=== PATIENT | male | born 1955 | race American Indian/Alaskan Native ===

== ENCOUNTER 2018-09-14 15:28 | Emergency (ER) | payer MEDICARE, OTHER ==
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
[2018-09-14 18:20] VITALS: BP 103/75
== END 2018-09-14 17:52 | disposition home or self-care (01) ==
LOC: ED 15:28
DX: S83.91XA Sprain of unspecified site of right knee, initial encounter (principal); S63.502A Unspecified sprain of left wrist, initial encounter; S09.90XA Unspecified injury of head, initial encounter; I11.0 Hypertensive heart disease with heart failure; I50.9 Heart failure, unspecified; I25.2 Old myocardial infarction; Z95.0 Presence of cardiac pacemaker; Z87.891 Personal history of nicotine dependence; V89.2XXA Person injured in unspecified motor-vehicle accident, traffic, initial encounter; Y93.89 Activity, other specified; Y92.488 Other paved roadways as the place of occurrence of the external cause; Y99.8 Other external cause status
CPT/HCPCS: 70450; 99284

== ENCOUNTER 2018-10-24 16:54 | Inpatient (IN) | payer MEDICARE ==
--- NOTE | 2018-10-24 17:34 | Emergency Department Report ---
Blank Doc - Documentation Documentation: Patient here for SOB , swelling to uper and lower exttremities and worst to legs. no chest pain. reports swelling to abdomen Swelling with SOB x [address] Allison . Gained 49 lbs in 5 weeks. reports strong color urine and constipation. Sent to Hospital by PCP and Gum Cook because new dieretics is not working which is torsemide 20 mg BID Lisinopril. coreg, Dieuretic, potassium, metformin, Pravastatin, ASA H/O SC stent CHF HTN AICD EF 20% DM 2 Lungs, increase wob EKG with paced rhythm Generalized swelling including abdomen Piiting edema to legs RT>LT, swelling lt hand and forearm CHF exac Anasarca- generalized swelling Gum Cook: Dr Landon Foster at [facility], 2 l n/c , Xray
--- NOTE | 2018-10-24 18:13 | XRay Report ---
CHEST 2 VIEWS INDICATION / CLINICAL INFORMATION: Shortness of breath. COMPARISON: None available. FINDINGS: SUPPORT DEVICES: Biventricular cardiac pacemaker/ICD in place with leads appearing in appropriate pos ition. HEART / MEDIASTINUM: Mild cardiomegaly. LUNGS / PLEURA: There is patchy parenchymal opacification in the left lower lobe. The right lung appe ars clear. There is no significant pleural effusion. No pneumothorax. ADDITIONAL FINDINGS: No significant additional findings. IMPRESSION: 1. Patchy left lower lobe parenchymal opacification which could reflect atelectasis or developing inf ectious or inflammatory process. Signer Name: Oliverio Marin MD Signed: 10/24/2018 6:08 PM Workstation Name: [id number]
[2018-10-24 18:40] LABS: INR 1.36 (0.87-1.13)
[2018-10-24 18:41] LABS: Hematocrit 38.9 % (35.5-45.6); Hemoglobin 12.5 gm/dl (11.8-15.2); Mean Corpuscular HGB Conc 32 % (32-34); Mean Corpuscular Hemoglobin 28 pg (28-32); Mean Corpuscular Volume 86 fl (84-94); Partial Thromboplastin Time 31.9 Sec. (24.2-36.6); Platelet Count 131 K/mm3 (140-440)
[2018-10-24 18:52] LABS: Red Cell Distribution Width 21.8 % (13.2-15.2)
[2018-10-24 18:55] LABS: Alanine Aminotransferase 8 units/L (7-56); Albumin 3.1 g/dL (3.9-5); BUN/Creatinine Ratio 16; Blood Urea Nitrogen 21 mg/dL (9-20); Calcium 8.6 mg/dL (8.4-10.2); Hemolysis Index 1; Lipase 29 units/L (13-60)
[2018-10-24] MEDS ORDERED: LASIX IV ONE (19:17)
--- NOTE | 2018-10-24 19:26 | Emergency Department Report ---
HPI - General Chief Complaint: Dyspnea/Respdistress Time Seen by Provider: 10/24/18 17:22 - HPI HPI: Room 1 The patient is a 63-year-old male presenting with a chief complaint of bilateral lower extremity edema. The patient states for about 5 weeks he has had worsening bilateral lower extremity edema. The patient saw his napper tender 10/10/2018 was placed on torsemide to take in addition to his Lasix. Patient states he has been compliant with all medication with swelling has worsened. Patient states he's had shortness of breath for approximately one month and difficulty sleeping secondary to the shortness of breath. Patient also states he's had swelling of the left upper extremity. Patient admits to a cough for approximately one month but states it is been nonproductive. Patient denies history of fever. The patient states he had fleeting chest pain intermittent for past 2-3 days. Location: [See above] Duration: [See above] Quality: [See above] Severity: [See above] Modifying factors: [see above] Context: [see above] Mode of transportation: [not driving] ED Past Medical Hx - Past Medical History Previous Medical History?: Yes Hx Hypertension: Yes Hx Heart Attack/AMI: Yes Hx Congestive Heart Failure: Yes - Surgical History Past Surgical History?: Yes Hx Pacemaker: Yes (AICD) - Family History Family history: no significant - Social History Smoking Status: Former Smoker (none 7 years) Substance Use Type: None (denies illicit drug use) - Medications Home Medications: Home Medications Medication Instructions Recorded Confirmed Last Taken Type methOCARBAMOL [Robaxin TAB] 500 mg PO Q8HR PRN #10 tablet 09/14/18 Unknown Rx ED Review of Systems ROS: Stated complaint: EDMA/KIESHA Other details as noted in HPI Constitutional: denies: fever Eyes: denies: eye pain ENT: denies: throat pain Respiratory: cough, shortness of breath Cardiovascular: chest pain Endocrine: no symptoms reported Gastrointestinal: denies: abdominal pain Genitourinary: other (scrotal swelling) Musculoskeletal: denies: back pain Neurological: denies: headache Physical Exam - Physical Exam Vital Signs: Vital Signs 10/24/18 10/24/18 10/24/18 17:21 18:45 19:00 Temperature 97.8 F Pulse Rate 87 95 H 96 H Respiratory 24 17 20 Rate Blood Pressure 101/62 101/71 99/66 O2 Sat by Pulse 94 100 100 Oximetry 10/24/18 19:15 Temperature Pulse Rate Respiratory 24 Rate Blood Pressure O2 Sat by Pulse 100 Oximetry Physical Exam: GENERAL: The patient is well-developed well-nourished male sitting on stretcher not appearing to be in acute distress. [] HEENT: Normocephalic. Atraumatic. Extraocular motions are intact. Patient has moist mucous membranes. NECK: Supple. Trachea midline CHEST/LUNGS: Bibasilar crackles. There is no respiratory distress noted. HEART/CARDIOVASCULAR: Regular. There is no tachycardia. There is no gallop rub or murmur. ABDOMEN: Abdomen is soft, nontender. Patient has normal bowel sounds. There is no abdominal distention. SKIN: There is no rash. There is 3+ bilateral lower extremity pitting edema. There is no diaphoresis. NEURO: The patient is awake, alert, and oriented. The patient is cooperative. The patient has normal speech MUSCULOSKELETAL: There is no evidence of acute injury. ED Course Vital Signs 10/24/18 10/24/18 10/24/18 17:21 18:45 19:00 Temperature 97.8 F Pulse Rate 87 95 H 96 H Respiratory 24 17 20 Rate Blood Pressure 101/62 101/71 99/66 O2 Sat by Pulse 94 100 100 Oximetry 10/24/18 19:15 Temperature Pulse Rate Respiratory 24 Rate Blood Pressure O2 Sat by Pulse 100 Oximetry ED Medical Decision Making - Lab Data Result diagrams: 10/24/18 17:58 10/24/18 17:58 Laboratory Tests 10/24/18 10/24/18 10/24/18 17:58 17:58 17:58 WBC 3.6 L RBC 4.50 Hgb 12.5 Hct 38.9 MCV 86 MCH 28 MCHC 32 RDW 21.8 H Plt Count 131 L [place] % (Auto) Technical Healthcare Consultant PT 16.4 H INR 1.36 H APTT 31.9 Sodium 142 Potassium 3.8 Chloride 104.5 Carbon Dioxide 24 Anion Gap 17 BUN 21 H Creatinine 1.3 Estimated GFR > 60 BUN/Creatinine Ratio 16 Glucose 151 H Calcium 8.6 Total Bilirubin 1.40 H AST 19 ALT 8 Alkaline Phosphatase 133 H Troponin T NT-Pro-B Natriuret Pep Total Protein 7.1 Albumin 3.1 L Albumin/Globulin Ratio 0.8 Lipase 29 10/24/18 10/24/18 17:58 17:58 WBC RBC Hgb Hct MCV MCH MCHC RDW Plt Count [place] % (Auto) PT INR APTT Sodium Potassium Chloride Carbon Dioxide Anion Gap BUN Creatinine Estimated GFR BUN/Creatinine Ratio Glucose Calcium Total Bilirubin AST ALT Alkaline Phosphatase Troponin T 0.014 NT-Pro-B Natriuret Pep 6211 H Total Protein Albumin Albumin/Globulin Ratio Lipase - EKG Data -: EKG Interpreted by Me Rate: normal - EKG Data When compared to previous EKG there are: previous EKG unavailable Interpretation: other (bigeminy) - Radiology Data Radiology results: report reviewed (chest x-ray), image reviewed (chest x-ray) interpreted by me: Chest x-ray- cardiomegaly, no pneumothorax [facility] [address] [place] [address] XRay Report Signed Patient: DEZ LEWIS MR #: [id number] : 1955 Acct:[id number] Age/Sex: 63 / M ADM Date: 10/24/18 Loc: ED Attending Dr: Ordering Physician: YENI MONTAÑO Date of Service: 10/24/18 Procedure(s): XR chest routine 2V Accession Number(s): [id number] cc: YENI MONTAÑO Fluoro Time In Minutes: CHEST 2 VIEWS INDICATION / CLINICAL INFORMATION: Shortness of breath. COMPARISON: None available. FINDINGS: SUPPORT DEVICES: Biventricular cardiac pacemaker/ICD in place with leads appearing in appropriate position. HEART / MEDIASTINUM: Mild cardiomegaly. LUNGS / PLEURA: There is patchy parenchymal opacification in the left lower lobe. The right lung appears clear. There is no significant pleural effusion. No pneumothorax. ADDITIONAL FINDINGS: No significant additional findings. IMPRESSION: 1. Patchy left lower lobe parenchymal opacification which could reflect atelectasis or developing infectious or inflammatory process. Signer Name: Oliverio Marin MD Signed: 10/24/2018 6:08 PM Workstation Name: [id number] Transcribed By: KENRICK Dictated By: Oliverio Marin MD Electronically Authenticated By: Oliverio Marin MD Signed Date/Time: 10/24/181807 DD/ 06 TD/TT: - Differential Diagnosis CHF exacerbation Critical care attestation.: If time is entered above; I have spent that time in minutes in the direct care of this critically ill patient, excluding procedure time. ED Disposition Clinical Impression: CHF exacerbation, Shortness of breath, Bigeminy Disposition: DC-09 OP ADMIT IP TO THIS HOSP Is pt being admited?: Yes Does the pt Need Aspirin: Yes Condition: Fair Time of Disposition: 19:29 (Hospitalist paged (Dr Rahman))
[2018-10-24] MEDS ORDERED: ASPIRIN PO ONE (19:30)
[2018-10-24 20:36] LABS: Total Cells Counted 100
[2018-10-24 20:37] LABS: Anisocytosis 1+; Poikilocytosis 1+
[2018-10-24 20:38] LABS: Ovalocytes 1+; Platelet Estimate Consistent w Auto
[2018-10-24 23:07] LABS: Bilirubin,Urine NEG (Negative); Blood,Urine SM (Negative); Color,Urine Yellow (Yellow); Mucus,Urine FEW /HPF; Protein,Urine <15 mg/dL mg/dL (Negative)
--- NOTE | 2018-10-25 10:42 | Progress Note ---
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, claims compliance with medications Resume home anti-failure meds, input output monitoring, low sodium diet, fluid restriction Cardiology consult --Status post AICD; recently interrogated --Hypertension; moderate control, continue current antihypertensives When necessary hydralazine --Type 2 diabetes mellitus; Accu-Chek sliding scale as diet Oral hypoglycemics as needed, check A1c --Moderate malnutrition /hypoalbuminemia; nutrition supplements and supportive care Consider nutrition consult if needed --DVT prophylaxis : Lovenox Monitor closely and adjust management as needed Plan of care reviewed with the patient and his nurse History Interval history: Patient seen and examined medical records reviewed Admitted with worsening leg edema, shortness of breath, acute on chronic systolic congestive heart failure Patient feels slightly better continues to have shortness of breath And generalized edema Alert awake oriented 3 Denies chest pain No nausea vomiting Vital signs noted Hospitalist Physical - Constitutional Vitals: Temp Pulse Resp BP Pulse Ox 97.8 F 74 22 102/81 96 10/25/18 07:41 10/25/18 03:43 10/25/18 10:00 10/25/18 07:41 10/25/18 10:00 General appearance: Present: mild distress, well-nourished - EENT Eyes: Present: PERRL, EOM intact - Neck Neck: Present: supple, normal ROM - Respiratory Respiratory effort: normal Respiratory: bilateral: diminished, rales, negative: rhonchi, wheezing - Cardiovascular Rhythm: regular Heart Sounds: Present: S1 & S2 - Extremities Extremities: no ischemia Extremity abnormal: edema - Abdominal General gastrointestinal: soft, non-tender, non-distended, normal bowel sounds - Integumentary Integumentary: Present: clear, warm - Psychiatric Psychiatric: appropriate mood/affect, cooperative - Neurologic Neurologic: CNII-XII intact, moves all extremities Results - Labs CBC & Chem 7: 10/24/18 17:58 10/24/18 17:58 Labs: Laboratory Last Values WBC 3.6 K/mm3 (4.5-11.0) L 10/24/18 17:58 RBC 4.50 M/mm3 (3.65-5.03) 10/24/18 17:58 Hgb 12.5 gm/dl (11.8-15.2) 10/24/18 17:58 Hct 38.9 % (35.5-45.6) 10/24/18 17:58 MCV 86 fl (84-94) 10/24/18 17:58 MCH 28 pg (28-32) 10/24/18 17:58 MCHC 32 % (32-34) 10/24/18 17:58 RDW 21.8 % (13.2-15.2) H 10/24/18 17:58 Plt Count 131 K/mm3 (140-440) L 10/24/18 17:58 [place] % (Auto) Community Recreation Coordinator 10/24/18 17:58 Add Manual Diff Complete 10/24/18 17:58 Total Counted 100 10/24/18 17:58 Seg Neuts % (Manual) 50.0 % (40.0-70.0) 10/24/18 17:58 0 % 10/24/18 17:58 28.0 % (13.4-35.0) 10/24/18 17:58 Reactive Lymphs % (Man) 1.0 % 10/24/18 17:58 16.0 % (0.0-7.3) H 10/24/18 17:58 3.0 % (0.0-4.3) 10/24/18 17:58 2.0 % (0.0-1.8) H 10/24/18 17:58 0 % 10/24/18 17:58 0 % 10/24/18 17:58 0 % 10/24/18 17:58 0 % 10/24/18 17:58 Nucleated RBC % Not Reportable 10/24/18 17:58 Seg Neutrophils # Man 1.8 K/mm3 (1.8-7.7) 10/24/18 17:58 Band Neutrophils # 0.0 K/mm3 10/24/18 17:58 1.0 K/mm3 (1.2-5.4) L 10/24/18 17:58 Abs React Lymphs (Man) 0.0 K/mm3 10/24/18 17:58 0.6 K/mm3 (0.0-0.8) 10/24/18 17:58 0.1 K/mm3 (0.0-0.4) 10/24/18 17:58 0.1 K/mm3 (0.0-0.1) 10/24/18 17:58 0.0 K/mm3 10/24/18 17:58 0.0 K/mm3 10/24/18 17:58 0.0 K/mm3 10/24/18 17:58 Blast Cells # 0.0 K/mm3 10/24/18 17:58 WBC Morphology Not Reportable 10/24/18 17:58 Hypersegmented Neuts Not Reportable 10/24/18 17:58 Hyposegmented Neuts Not Reportable 10/24/18 17:58 Hypogranular Neuts Not Reportable 10/24/18 17:58 Not Reportable 10/24/18 17:58 Not Reportable 10/24/18 17:58 Not Reportable 10/24/18 17:58 Not Reportable 10/24/18 17:58 Not Reportable 10/24/18 17:58 Not Reportable 10/24/18 17:58 Consistent w auto 10/24/18 17:58 Not Reportable 10/24/18 17:58 Plt Clumps, EDTA Not Reportable 10/24/18 17:58 Not Reportable 10/24/18 17:58 Not Reportable 10/24/18 17:58 Not Reportable 10/24/18 17:58 Plt Morphology Comment Not Reportable 10/24/18 17:58 RBC Morphology Not Reportable 10/24/18 17:58 Dimorphic RBCs Not Reportable 10/24/18 17:58 Not Reportable 10/24/18 17:58 Not Reportable 10/24/18 17:58 1+ 10/24/18 17:58 1+ 10/24/18 17:58 Not Reportable 10/24/18 17:58 Not Reportable 10/24/18 17:58 Not Reportable 10/24/18 17:58 Not Reportable 10/24/18 17:58 Not Reportable 10/24/18 17:58 Not Reportable 10/24/18 17:58 Not Reportable 10/24/18 17:58 1+ 10/24/18 17:58 Not Reportable 10/24/18 17:58 Not Reportable 10/24/18 17:58 Not Reportable 10/24/18 17:58 Not Reportable 10/24/18 17:58 Not Reportable 10/24/18 17:58 Not Reportable 10/24/18 17:58 Not Reportable 10/24/18 17:58 Acanthocytes (Spur) Not Reportable 10/24/18 17:58 Rouleaux Not Reportable 10/24/18 17:58 Not Reportable 10/24/18 17:58 Not Reportable 10/24/18 17:58 Not Reportable 10/24/18 17:58 Not Reportable 10/24/18 17:58 Hem Pathologist Commnt No 10/24/18 17:58 PT 16.4 Sec. (12.2-14.9) H 10/24/18 17:58 INR 1.36 (0.87-1.13) H 10/24/18 17:58 APTT 31.9 Sec. (24.2-36.6) 10/24/18 17:58 Sodium 142 mmol/L (137-145) 10/24/18 17:58 Potassium 3.8 mmol/L (3.6-5.0) 10/24/18 17:58 Chloride 104.5 mmol/L (98-107) 10/24/18 17:58 Carbon Dioxide 24 mmol/L (22-30) 10/24/18 17:58 17 mmol/L 10/24/18 17:58 BUN 21 mg/dL (9-20) H 10/24/18 17:58 1.3 mg/dL (0.8-1.5) 10/24/18 17:58 Estimated GFR > 60 ml/min 10/24/18 17:58 16 % 10/24/18 17:58 Glucose 151 mg/dL (75-100) H 10/24/18 17:58 POC Glucose 188 (70-105) H 10/25/18 07:45 Calcium 8.6 mg/dL (8.4-10.2) 10/24/18 17:58 1.40 mg/dL (0.1-1.2) H 10/24/18 17:58 AST 19 units/L (5-40) 10/24/18 17:58 ALT 8 units/L (7-56) 10/24/18 17:58 133 units/L (35-129) H 10/24/18 17:58 0.014 ng/mL (0.00-0.029) 10/24/18 17:58 NT-Pro-B Natriuret Pep 6211 pg/mL (0-900) H 10/24/18 17:58 7.1 g/dL (6.3-8.2) 10/24/18 17:58 3.1 g/dL (3.9-5) L 10/24/18 17:58 0.8 % 10/24/18 17:58 29 units/L (13-60) 10/24/18 17:58 Yellow (Yellow) 10/24/18 22:17 Clear (Clear) 10/24/18 22:17 5.0 (5.0-7.0) 10/24/18 22:17 Ur Specific [place] 1.011 (1.003-1.030) 10/24/18 22:17 <15 mg/dl mg/dL (Negative) 10/24/18 22:17 Neg mg/dL (Negative) 10/24/18 22:17 Neg mg/dL (Negative) 10/24/18 22:17 Sm (Negative) 10/24/18 22:17 Neg (Negative) 10/24/18 22:17 Neg (Negative) 10/24/18 22:17 4.0 mg/dL (<2.0) 10/24/18 22:17 Ur Leukocyte Esterase Neg (Negative) 10/24/18 22:17 1.0 /HPF (0.0-6.0) 10/24/18 22:17 2.0 /HPF (0.0-6.0) 10/24/18 22:17 Few /HPF 10/24/18 22:17 Active Medications - Current Medications Current Medications: Generic Name Dose Route Start Last Admin Trade Name Freq PRN Reason Stop Dose Admin Carvedilol 3.125 mg 10/25/18 22:00 Coreg PO BID NORRIS Furosemide 40 mg 10/26/18 10:00 Lasix IV QDAY NORRIS Lisinopril 5 mg 10/26/18 10:00 Zestril PO QDAY [facility] Montelukast Sodium 10 mg 10/25/18 18:00 Singulair PO QPM [facility] Pravastatin Sodium 40 mg 10/25/18 22:00 Pravachol PO QHS NORRIS
[2018-10-25] MEDS ORDERED: TORADOL IV PRN (11:27)
[2018-10-25] MEDS ORDERED: TORADOL PO PRN (11:28)
[2018-10-25] MEDS: COLACE PO SCH ×2 (12:00→21:55)
[2018-10-25] MEDS ORDERED: LASIX IV ONE ×2 (12:00→18:08)
[2018-10-25] MEDS: TRIPLE ANTIBIOTIC TP SCH ×2 (12:01→21:30)
[2018-10-25] MEDS: HumaLOG SUB-Q SCH ×3 (12:07→21:40)
[2018-10-25] MEDS: SINGULAIR PO SCH (17:58)
[2018-10-25] MEDS ORDERED: LASIX PO SCH (18:00)
[2018-10-25] MEDS ORDERED: ROBAXIN PO PRN (18:06)
--- NOTE | 2018-10-25 19:10 | History and Physical Report ---
CHIEF COMPLAINT: Shortness of breath for 1 month, increasing swelling of both lower extremities 1 month. HISTORY OF PRESENT ILLNESS: A 63-year-old male with history of hypertension, congestive heart failure, coronary artery disease, comes in for increasing swelling of both lower extremities and increasing shortness of breath on minimal exertion for the last one month, more so for the last couple of days. The patient has orthopnea. The patient has class 4 NYHA symptoms. The patient also admits to cough for 1 month. The patient is on torsemide, but not taking it regularly. The patient saw his materials and corrosion engineer on 10/10/2018 and was put on torsemide and Lasix. Noncompliant with medications. No fever or chills. No recent travel. Exacerbating factors, drinking excessive fluids and not taking medications. Relieving factors fluid restriction. PAST MEDICAL HISTORY: Significant for hypertension, acute OH in the past, congestive heart failure. PAST SURGICAL HISTORY: Pacemaker and AICD placement. FAMILY HISTORY: Hypertension. SOCIAL HISTORY: Former smoker until 7 years ago. No drugs. REVIEW OF SYSTEMS: Significant for class 4 NYHA symptoms, bilateral leg swelling, scrotal swelling and also orthopnea present. No chest pain. Otherwise, 14-point review of systems negative. PHYSICAL EXAMINATION: GENERAL: Elderly male, cooperative during examination. VITAL SIGNS: Temperature 97.6, pulse is 96, respiratory rate is 18, blood pressure is 111/81. HEENT: Unremarkable. Pupils equal and reactive. NECK: Supple, no lymphadenopathy, no thyromegaly. LUNGS: Clear to auscultation and percussion. Good air entry. CARDIOVASCULAR: S1, S2 heard. No gallop, no murmur, no rub. Apical impulse in left fifth intercostal space and midclavicular line. ABDOMEN: Soft and benign. No hepatosplenomegaly, no guarding, no rigidity. Hernial orifices are normal. EXTREMITIES: Good pedal pulses. No pedal edema. CENTRAL NERVOUS SYSTEM: Alert and oriented x 4, nonfocal exam. EXTREMITIES: 3+ pedal edema present. LABORATORY DATA: Significant for white count of 3600, H and H 12.5 and 38.9, platelet count is 131,000. Electrolytes are normal. Glucose is 151, total bilirubin is 1.4. BNP 6211, albumin is 3.1. Urine is normal. Chest x-ray shows patchy left lower lobe parenchymal opacification which could reflect atelectasis or developing infectious or inflammatory process. EKG, sinus tachycardia. Heart rate of 103 per minute. Bigeminy present. ASSESSMENT AND PLAN: 1. Congestive heart failure exacerbation. The patient initiated on IV Lasix and Cardiology consult requested. Daily weights, intake and output. The left lower lobe pneumonia. Empiric antibiotics. 2. Hypertension. Continue lisinopril and Coreg. Adjust the dosage as necessary. 3. Type 2 diabetes, coverage and continue metformin. 4. Asthma. Continue Singulair to prevent asthma attacks. 5. Hyperlipidemia. Continue Pravastatin 40 mg p.o. daily. 6. Deep venous thrombosis prophylaxis. Lovenox 40 mg subcutaneous daily. In summary, the patient has congestive heart failure exacerbation, left lower lobe pneumonia, hypotension, type 2 diabetes, hyperlipidemia. JOB# [id number] MARY/IRINA MENJIVAR
[2018-10-25] MEDS: LEVAQUIN 750MG/150ML 750 MG/150 ML BAG IV SCH (21:29)
[2018-10-25] MEDS: K-DUR PO SCH (21:30)
[2018-10-25] MEDS: COREG PO SCH (21:31)
[2018-10-25] MEDS: PRAVACHOL PO SCH (21:31)
[2018-10-25] MEDS: LOVENOX SUB-Q SCH (21:39)
[2018-10-26] MEDS: LASIX IV SCH ×2 (05:53→18:01)
[2018-10-26] MEDS: HumaLOG SUB-Q SCH ×4 (07:57→21:51)
[2018-10-26] MEDS: K-DUR PO SCH ×2 (08:45→21:51)
[2018-10-26] MEDS: GLUCOPHAGE XR PO SCH (09:10)
[2018-10-26] MEDS: TRIPLE ANTIBIOTIC TP SCH ×2 (09:11→22:45)
[2018-10-26] MEDS: COREG PO SCH ×2 (09:12→21:51)
[2018-10-26] MEDS: ZESTRIL PO SCH (09:12)
[2018-10-26] MEDS: COLACE PO SCH ×2 (09:12→21:50)
[2018-10-26] MEDS ORDERED: DEMADEX PO SCH (10:00)
[2018-10-26] MEDS ORDERED: LASIX IV SCH (10:00)
[2018-10-26] MEDS ORDERED: METFORMIN HCL 750 MG PO SCH (10:00)
--- NOTE | 2018-10-26 10:50 | Consultation ---
History of Present Illness Consult date: 10/26/18 Requesting physician: ARNIE AU Consult reason: congestive heart failure History of present illness: Mr. Robles is a 63 y/o male with a past medical history of chronic HFrEf, ischemic cardiomyopathy, CAD s/p multiple stents (RCA & LCx in 2004, D1 in 2008), severe MR, hypertension, hyperlipidemia, diabetes, pulmonary hypertension and AICD in situ who presents with worsening bilateral lower extr emity edema x5 weeks. He also c/o SOB x1 month. He follows with Dr. Foster in our office, who initiated daily torsemide therapy in addition to his Lasix back in September. He reports compliance with all of his medication. An echocardiogram in March 2017 found an EF of 20 percent, a severely dilated LV, grade 3 diastolic dysfunction, severe MR and [id number] TR. Past History Past Medical History: CAD, diabetes, heart failure, hypertension, hyperlipidemia, other (pulmonary htn) Medications and Allergies Allergies Allergy/AdvReac Type Severity Reaction Status Date / Time No Known Allergies Allergy Verified 10/24/18 17:00 Home Medications Medication Instructions Recorded Confirmed Last Taken Type methOCARBAMOL [Robaxin TAB] 500 mg PO Q8HR PRN #10 tablet 09/14/18 10/24/18 Unknown Rx Carvedilol [Coreg] 3.125 mg PO BID 10/24/18 10/24/18 1 Day Ago History ~10/23/18 Lisinopril [Zestril] 5 mg PO QDAY 10/24/18 10/24/18 1 Day Ago History ~10/23/18 Metformin HCl [Glucophage ER] 750 mg PO QDAY 10/24/18 10/24/18 1 Day Ago History ~10/23/18 Montelukast [Singulair] 10 mg PO QPM 10/24/18 10/24/18 1 Day Ago History ~10/23/18 Pravastatin [Pravachol] 40 mg PO QHS 10/24/18 10/24/18 1 Day Ago History ~10/23/18 Torsemide [Demadex] 40 mg PO QDAY 10/24/18 10/24/18 1 Day Ago History ~10/23/18 Active Meds: Active Medications Carvedilol (Coreg) 3.125 mg PO BID [facility] Last Admin: 10/26/18 09:12 Dose: 3.125 mg Documented by: Docusate Sodium (Colace) 100 mg PO BID [facility] Last Admin: 10/26/18 09:12 Dose: 100 mg Documented by: Enoxaparin Sodium (Lovenox) 40 mg SUB-Q QDAY@2200 [facility] Last Admin: 10/25/18 21:39 Dose: 40 mg Documented by: Furosemide (Lasix) 40 mg IV 0600,1800 [facility] Last Admin: 10/26/18 05:53 Dose: 40 mg Documented by: Levofloxacin/Dextrose (Levaquin 750mg/150ml) 750 mg in 150 mls @ 100 mls/hr IV Q24H [facility]; Protocol Last Admin: 10/25/18 21:29 Dose: 100 mls/hr Documented by: Insulin Human Lispro (Humalog) 0 unit SUB-Q ACHS [facility]; Protocol Last Admin: 10/26/18 07:57 Dose: Not Given Documented by: Ketorolac Tromethamine (Toradol) 10 mg PO Q6H PRN PRN Reason: Pain, Mild (1-3) Stop: 10/30/18 11:27 Lisinopril (Zestril) 5 mg PO QDAY [facility] Last Admin: 10/26/18 09:12 Dose: 5 mg Documented by: Metformin HCl (Glucophage Xr) 750 mg PO QDDIAB [facility] Last Admin: 10/26/18 09:10 Dose: 750 mg Documented by: Methocarbamol (Robaxin) 500 mg PO Q8HR PRN PRN Reason: Muscle Spasm Montelukast Sodium (Singulair) 10 mg PO QPM [facility] Last Admin: 10/25/18 17:58 Dose: 10 mg Documented by: Neomycin/Polymyxin/Bacitracin (Triple Antibiotic) 1 applic TP BID [facility] Last Admin: 10/26/18 09:11 Dose: 1 applic Documented by: Potassium Chloride (K-Dur) 20 meq PO Q12H [facility] Last Admin: 10/26/18 08:45 Dose: 20 meq Documented by: Pravastatin Sodium (Pravachol) 40 mg PO QHS [facility] Last Admin: 10/25/18 21:31 Dose: 40 mg Documented by: Torsemide (Demadex) 40 mg PO QDAY [facility] Last Admin: 10/26/18 09:11 Dose: 40 mg Documented by: Review of Systems All systems: negative Cardiovascular: edema (BLE and abdomen) Respiratory: shortness of breath Physical Examination Last Vital Signs Temp 98.3 F 10/26/18 07:38 Pulse 88 10/26/18 09:12 Resp 18 10/26/18 07:38 BP 121/86 10/26/18 09:12 Pulse Ox 99 10/26/18 05:09 General appearance: mild distress HEENT: Positive: Normocephaly Neck: Positive: JVD/HJR Cardiac: Positive: Reg Rate and Rhythm, S3, Systolic Murmur Lungs: Positive: Decreased Breath Sounds (Right base) Neuro: Positive: Grossly Intact Abdomen: Positive: Distended Male genitourinary: Positive: deferred Skin: Positive: Clear Extremities: Present: +2 Edema Results 10/24/18 17:58 10/24/18 17:58 - Imaging and Cardiology Echo: report reviewed (03/2017: EF 20%, LV severely dilated, grade 3 diastolic dysfunction, severe MR) Cardiac cath: report reviewed (Successful PCI to LCx and RCA in 2004; successful PCI to D1) EKG: image reviewed (ventricular paced) EKG interpretations - Telemetry EKG Rhythm: Paced Assessment and Plan Mr. Robles is a 63 y/o male with a past medical history significant for HFrEF, CAD s/p multiple stents, hypertension, pulmonary hypertension, severe MR, diabetes, hyperlipidemia and AICD in situ who presented to the ED with worsening leg edema and SOB. Swelling improved on exam, but still significant; he also remains SOB. Will start dobutamine at 4 mcg/kg/min given outpatient oral regimen not successful. Will also continue BID Lasix and stop torsemide for now. Continue other cardiac management. The patient has been seen in conjunction with Dr. Littlejohn, who agrees with as sessment and plan. - Patient Problems (1) Acute on chronic HFrEF (heart failure with reduced ejection fraction) Current Visit: Yes Status: Acute (2) Acute respiratory failure Current Visit: Yes Status: Acute (3) Anasarca Current Visit: Yes Status: Acute (4) Pulmonary hypertension Current Visit: Yes Status: Chronic (5) Ischemic cardiomyopathy Current Visit: Yes Status: Chronic (6) CAD (coronary artery disease) Current Visit: Yes Status: Chronic (7) Automatic implantable cardioverter-defibrillator in situ Current Visit: Yes Status: Chronic (8) Diabetes Current Visit: Yes Status: Chronic (9) Severe mitral regurgitation Current Visit: Yes Status: Chronic
[2018-10-26] MEDS ORDERED: DOBUTREX DRIP 500MG/D5W 250ML 500 MG/250 ML BAG IV SCH (12:00)
--- NOTE | 2018-10-26 16:07 | Progress Note ---
Assessment and Plan Assessment and plan: --Acute on chronic systolic congestive heart failure, ejection fraction 20% Patient is slightly better, claims compliance with medications, anti- inflammatory medications Input and output monitoring low-sodium diet and daily weights Cardiology evaluation and recommendations noted and appreciated --Worsening lower extremity edema; Secondary to acute exacerbation of chronic systolic congestive heart failure Plan continue medication, input output monitoring, fluid restriction, low sodium diet --Status post AICD; recently interrogated --Hypertension; moderate control, continue current antihypertensives When necessary hydralazine --Type 2 diabetes mellitus; Accu-Chek sliding scale as diet Oral hypoglycemics as needed, check A1c --Moderate malnutrition /hypoalbuminemia; nutrition supplements and supportive care Consider nutrition consult if needed --DVT prophylaxis : Lovenox Monitor closely and adjust management as needed Plan of care reviewed with the patient and his nurse Possible discharge in 1-2 days if stable History Interval history: Patient seen and examined medical records reviewed Admitted worsening shortness of breath and worsening leg edema Receiving hemodialysis and on. Anti-failure medications Patient feels slightly better however swelling of lower extremities and flank Vital signs noted Hospitalist Physical - Constitutional Vitals: Temp Pulse Resp BP Pulse Ox 98.3 F 88 22 121/86 98 10/26/18 07:38 10/26/18 09:12 10/26/18 10:00 10/26/18 09:12 10/26/18 10:00 General appearance: Present: mild distress, well-nourished, obese - EENT Eyes: Present: PERRL, EOM intact - Neck Neck: Present: supple, normal ROM, enlarged thyroid - Respiratory Respiratory effort: normal Respiratory: bilateral: diminished, rales, negative: rhonchi, wheezing - Cardiovascular Rhythm: regular Heart Sounds: Present: S1 & S2 - Extremities Extremities: no ischemia, No edema - Abdominal General gastrointestinal: soft, non-tender, non-distended, normal bowel sounds - Integumentary Integumentary: Present: clear, warm - Psychiatric Psychiatric: appropriate mood/affect, cooperative - Neurologic Neurologic: CNII-XII intact, moves all extremities Results - Labs CBC & Chem 7: 10/24/18 17:58 10/24/18 17:58 Labs: Laboratory Last Values WBC 3.6 K/mm3 (4.5-11.0) L 10/24/18 17:58 RBC 4.50 M/mm3 (3.65-5.03) 10/24/18 17:58 Hgb 12.5 gm/dl (11.8-15.2) 10/24/18 17:58 Hct 38.9 % (35.5-45.6) 10/24/18 17:58 MCV 86 fl (84-94) 10/24/18 17:58 MCH 28 pg (28-32) 10/24/18 17:58 MCHC 32 % (32-34) 10/24/18 17:58 RDW 21.8 % (13.2-15.2) H 10/24/18 17:58 Plt Count 131 K/mm3 (140-440) L 10/24/18 17:58 Haakon % (Auto) [employer] 10/24/18 17:58 Add Manual Diff Complete 10/24/18 17:58 Total Counted 100 10/24/18 17:58 Seg Neuts % (Manual) 50.0 % (40.0-70.0) 10/24/18 17:58 0 % 10/24/18 17:58 28.0 % (13.4-35.0) 10/24/18 17:58 Reactive Lymphs % (Man) 1.0 % 10/24/18 17:58 16.0 % (0.0-7.3) H 10/24/18 17:58 3.0 % (0.0-4.3) 10/24/18 17:58 2.0 % (0.0-1.8) H 10/24/18 17:58 0 % 10/24/18 17:58 0 % 10/24/18 17:58 0 % 10/24/18 17:58 0 % 10/24/18 17:58 Nucleated RBC % Not Reportable 10/24/18 17:58 Seg Neutrophils # Man 1.8 K/mm3 (1.8-7.7) 10/24/18 17:58 Band Neutrophils # 0.0 K/mm3 10/24/18 17:58 1.0 K/mm3 (1.2-5.4) L 10/24/18 17:58 Abs React Lymphs (Man) 0.0 K/mm3 10/24/18 17:58 0.6 K/mm3 (0.0-0.8) 10/24/18 17:58 0.1 K/mm3 (0.0-0.4) 10/24/18 17:58 0.1 K/mm3 (0.0-0.1) 10/24/18 17:58 0.0 K/mm3 10/24/18 17:58 0.0 K/mm3 10/24/18 17:58 0.0 K/mm3 10/24/18 17:58 Blast Cells # 0.0 K/mm3 10/24/18 17:58 WBC Morphology Not Reportable 10/24/18 17:58 Hypersegmented Neuts Not Reportable 10/24/18 17:58 Hyposegmented Neuts Not Reportable 10/24/18 17:58 Hypogranular Neuts Not Reportable 10/24/18 17:58 Not Reportable 10/24/18 17:58 Not Reportable 10/24/18 17:58 Not Reportable 10/24/18 17:58 Not Reportable 10/24/18 17:58 Not Reportable 10/24/18 17:58 Not Reportable 10/24/18 17:58 Consistent w auto 10/24/18 17:58 Not Reportable 10/24/18 17:58 Plt Clumps, EDTA Not Reportable 10/24/18 17:58 Not Reportable 10/24/18 17:58 Not Reportable 10/24/18 17:58 Not Reportable 10/24/18 17:58 Plt Morphology Comment Not Reportable 10/24/18 17:58 RBC Morphology Not Reportable 10/24/18 17:58 Dimorphic RBCs Not Reportable 10/24/18 17:58 Not Reportable 10/24/18 17:58 Not Reportable 10/24/18 17:58 1+ 10/24/18 17:58 1+ 10/24/18 17:58 Not Reportable 10/24/18 17:58 Not Reportable 10/24/18 17:58 Not Reportable 10/24/18 17:58 Not Reportable 10/24/18 17:58 Not Reportable 10/24/18 17:58 Not Reportable 10/24/18 17:58 Not Reportable 10/24/18 17:58 1+ 10/24/18 17:58 Not Reportable 10/24/18 17:58 Not Reportable 10/24/18 17:58 Not Reportable 10/24/18 17:58 Not Reportable 10/24/18 17:58 Not Reportable 10/24/18 17:58 Not Reportable 10/24/18 17:58 Not Reportable 10/24/18 17:58 Acanthocytes (Spur) Not Reportable 10/24/18 17:58 Rouleaux Not Reportable 10/24/18 17:58 Not Reportable 10/24/18 17:58 Not Reportable 10/24/18 17:58 Not Reportable 10/24/18 17:58 Not Reportable 10/24/18 17:58 Hem Pathologist Commnt No 10/24/18 17:58 PT 16.4 Sec. (12.2-14.9) H 10/24/18 17:58 INR 1.36 (0.87-1.13) H 10/24/18 17:58 APTT 31.9 Sec. (24.2-36.6) 10/24/18 17:58 Sodium 142 mmol/L (137-145) 10/24/18 17:58 Potassium 3.8 mmol/L (3.6-5.0) 10/24/18 17:58 Chloride 104.5 mmol/L (98-107) 10/24/18 17:58 Carbon Dioxide 24 mmol/L (22-30) 10/24/18 17:58 17 mmol/L 10/24/18 17:58 BUN 21 mg/dL (9-20) H 10/24/18 17:58 1.3 mg/dL (0.8-1.5) 10/24/18 17:58 Estimated GFR > 60 ml/min 10/24/18 17:58 16 % 10/24/18 17:58 Glucose 151 mg/dL (75-100) H 10/24/18 17:58 POC Glucose 146 (70-105) H 10/26/18 15:49 8.6 % (4-6) H 10/26/18 04:38 Calcium 8.6 mg/dL (8.4-10.2) 10/24/18 17:58 1.40 mg/dL (0.1-1.2) H 10/24/18 17:58 AST 19 units/L (5-40) 10/24/18 17:58 ALT 8 units/L (7-56) 10/24/18 17:58 133 units/L (35-129) H 10/24/18 17:58 0.014 ng/mL (0.00-0.029) 10/24/18 17:58 NT-Pro-B Natriuret Pep 6211 pg/mL (0-900) H 10/24/18 17:58 7.1 g/dL (6.3-8.2) 10/24/18 17:58 3.1 g/dL (3.9-5) L 10/24/18 17:58 0.8 % 10/24/18 17:58 29 units/L (13-60) 10/24/18 17:58 Yellow (Yellow) 10/24/18 22:17 Clear (Clear) 10/24/18 22:17 5.0 (5.0-7.0) 10/24/18 22:17 Ur Specific [place] 1.011 (1.003-1.030) 10/24/18 22:17 <15 mg/dl mg/dL (Negative) 10/24/18 22:17 Neg mg/dL (Negative) 10/24/18 22:17 Neg mg/dL (Negative) 10/24/18 22:17 Sm (Negative) 10/24/18 22:17 Neg (Negative) 10/24/18 22:17 Neg (Negative) 10/24/18 22:17 4.0 mg/dL (<2.0) 10/24/18 22:17 Ur Leukocyte Esterase Neg (Negative) 10/24/18 22:17 1.0 /HPF (0.0-6.0) 10/24/18 22:17 2.0 /HPF (0.0-6.0) 10/24/18 22:17 Few /HPF 10/24/18 22:17 Active Medications - Current Medications Current Medications: Generic Name Dose Route Start Last Admin Trade Name Eddie PRN Reason Stop Dose Admin Carvedilol 3.125 mg 10/25/18 22:00 10/26/18 09:12 Coreg PO 3.125 mg BID [facility] Administration Docusate Sodium 100 mg 10/25/18 12:00 10/26/18 09:12 Colace PO 100 mg BID [facility] Administration Enoxaparin Sodium 40 mg 10/25/18 22:00 10/25/18 21:39 Lovenox SUB-Q 40 mg QDAY@2200 [facility] Administration Furosemide 40 mg 10/26/18 06:00 10/26/18 05:53 Lasix IV 40 mg 0600,1800 [facility] Administration Levofloxacin/Dextrose 750 mg in 150 mls @ 100 mls/hr 10/25/18 20:00 10/25/18 21:29 Levaquin 750mg/150ml IV 100 mls/hr Q24H [facility] Administration Protocol Dobutamine HCl/Dextrose 500 mg in 250 mls @ 11.196 mls/hr 10/26/18 12:00 Dobutrex Drip 500mg/D5w 250ml IV DIRECT [facility] Protocol 4 MCG/KG/MIN Insulin Human Lispro 0 unit 10/25/18 11:30 10/26/18 12:48 Humalog SUB-Q 1 unit ACHS [facility] Administration Protocol Ketorolac Tromethamine 10 mg 10/25/18 11:28 Toradol PO 10/30/18 11:27 Q6H PRN Pain, Mild (1-3) Lisinopril 5 mg 10/26/18 10:00 10/26/18 09:12 Zestril PO 5 mg QDAY [facility] Administration Metformin HCl 750 mg 10/26/18 08:00 10/26/18 09:10 Glucophage Xr PO 750 mg QDDIAB [facility] Administration Methocarbamol 500 mg 10/25/18 18:06 Robaxin PO Q8HR PRN Muscle Spasm Montelukast Sodium 10 mg 10/25/18 18:00 10/25/18 17:58 Singulair PO 10 mg QPM [facility] Administration Neomycin/Polymyxin/Bacitracin 1 applic 10/25/18 12:00 10/26/18 09:11 Triple Antibiotic TP 1 applic BID [facility] Administration Potassium Chloride 20 meq 10/25/18 20:00 10/26/18 08:45 K-Dur PO 20 meq Q12H [facility] Administration Pravastatin Sodium 40 mg 10/25/18 22:00 10/25/18 21:31 Pravachol PO 40 mg QHS [facility] Administration
[2018-10-26] MEDS: SINGULAIR PO SCH (18:02)
[2018-10-26] MEDS: DOBUTREX DRIP 500MG/D5W 250ML 500 MG/250 ML BAG IV SCH (18:14)
[2018-10-26] MEDS: LOVENOX SUB-Q SCH (21:49)
[2018-10-26] MEDS: PRAVACHOL PO SCH (21:50)
[2018-10-26] MEDS: LEVAQUIN 750MG/150ML 750 MG/150 ML BAG IV SCH (21:50)
[2018-10-27 05:11] LABS: BUN/Creatinine Ratio 17; Blood Urea Nitrogen 19 mg/dL (9-20); Calcium 8.7 mg/dL (8.4-10.2); Hemolysis Index 2
[2018-10-27] MEDS: LASIX IV SCH ×2 (06:50→19:22)
[2018-10-27] MEDS: HumaLOG SUB-Q SCH ×4 (09:10→21:00)
--- NOTE | 2018-10-27 10:26 | Progress Note ---
Assessment and Plan Pt appears to be clinically improving. cont present cardiac management. The patient has been seen in conjunction with Dr. Littlejohn who agrees with assessment and plan of care. - Patient Problems (1) Acute on chronic HFrEF (heart failure with reduced ejection fraction) Current Visit: Yes Status: Acute (2) Acute respiratory failure Current Visit: Yes Status: Acute (3) Anasarca Current Visit: Yes Status: Acute (4) Pulmonary hypertension Current Visit: Yes Status: Chronic (5) Ischemic cardiomyopathy Current Visit: Yes Status: Chronic (6) CAD (coronary artery disease) Current Visit: Yes Status: Chronic (7) Automatic implantable cardioverter-defibrillator in situ Current Visit: Yes Status: Chronic (8) Diabetes Current Visit: Yes Status: Chronic (9) Severe mitral regurgitation Current Visit: Yes Status: Chronic Subjective Date of service: 10/27/18 Principal diagnosis: HF Interval history: pt resting in bed, states he is feeling better. dobutamine gtt infusing. in SR on tele with bouts of NSVT overnight, pt asymptomatic. Objective Last Vital Signs Temp 97.9 F 10/27/18 08:19 Pulse 98 H 10/27/18 08:19 Resp 18 10/27/18 08:19 BP 115/83 10/27/18 08:19 Pulse Ox 100 10/27/18 08:19 - Physical Examination General: No Apparent Distress HEENT: Positive: Normocephaly Neck: Positive: JVD/HJR Cardiac: Positive: Reg Rate and Rhythm, S1/S2 Lungs: Positive: Decreased Breath Sounds Neuro: Positive: Grossly Intact Abdomen: Positive: Distended Skin: Positive: Clear Extremities: Present: +2 Edema - Labs and Meds Comprehensive Metabolic Panel 10/27/18 Range/Units 03:49 Sodium 136 L (137-145) mmol/L Potassium 4.1 (3.6-5.0) mmol/L Chloride 99.7 (98-107) mmol/L Carbon Dioxide 27 (22-30) mmol/L BUN 19 (9-20) mg/dL Creatinine 1.1 (0.8-1.5) mg/dL Glucose 106 H (75-100) mg/dL Calcium 8.7 (8.4-10.2) mg/dL - Imaging and Cardiology EKG: image reviewed (ventricular paced) Echo: report reviewed (03/2017: EF 20%, LV severely dilated, grade 3 diastolic dysfunction, severe MR) Cardiac cath: report reviewed (Successful PCI to LCx and RCA in 2004; successful PCI to D1) - Telemetry EKG Rhythm: Sinus Rhythm
--- NOTE | 2018-10-27 10:33 | Progress Note ---
Assessment and Plan Assessment and plan: --Acute on chronic systolic congestive heart failure, ejection fraction 20% Dobutamin drip started by cardiology Patient is slightly better, antifailure medications Input and output monitoring low-sodium diet and daily weights Cardiology evaluation and recommendations noted and appreciated --Worsening lower extremity edema; Secondary to acute exacerbation of chronic systolic congestive heart failure Plan continue medication, input output monitoring, fluid restriction, low sodium diet --Status post AICD; recently interrogated --Hypertension; moderate control, continue current antihypertensives When necessary hydralazine --Type 2 diabetes mellitus; Accu-Chek sliding scale as diet Oral hypoglycemics as needed, check A1c --Moderate malnutrition /hypoalbuminemia; nutrition supplements and supportive care Consider nutrition consult if needed --DVT prophylaxis : Lovenox Monitor closely and adjust management as needed Plan of care reviewed with the patient and his nurse Possible discharge in 1-2 days if stable History Interval history: Patient seen and examined Patient feels slightly better on Dobutamine drip Vital signs reviewed Hospitalist Physical - Constitutional Vitals: Temp Pulse Resp BP Pulse Ox 97.9 F 98 H 18 115/83 100 10/27/18 08:19 10/27/18 08:19 10/27/18 08:19 10/27/18 08:19 10/27/18 08:19 General appearance: Present: no acute distress, well-nourished, obese - EENT Eyes: Present: PERRL, EOM intact - Neck Neck: Present: supple, normal ROM - Respiratory Respiratory effort: normal Respiratory: bilateral: diminished, rales, negative: rhonchi, wheezing - Cardiovascular Rhythm: regular Heart Sounds: Present: S1 & S2 - Extremities Extremities: no ischemia - Abdominal General gastrointestinal: soft, non-tender, non-distended, normal bowel sounds - Integumentary Integumentary: Present: clear, warm - Psychiatric Psychiatric: appropriate mood/affect, cooperative - Neurologic Neurologic: CNII-XII intact, moves all extremities Results - Labs CBC & Chem 7: 10/24/18 17:58 10/27/18 03:49 Labs: Laboratory Last Values WBC 3.6 K/mm3 (4.5-11.0) L 10/24/18 17:58 RBC 4.50 M/mm3 (3.65-5.03) 10/24/18 17:58 Hgb 12.5 gm/dl (11.8-15.2) 10/24/18 17:58 Hct 38.9 % (35.5-45.6) 10/24/18 17:58 MCV 86 fl (84-94) 10/24/18 17:58 MCH 28 pg (28-32) 10/24/18 17:58 MCHC 32 % (32-34) 10/24/18 17:58 RDW 21.8 % (13.2-15.2) H 10/24/18 17:58 Plt Count 131 K/mm3 (140-440) L 10/24/18 17:58 [place] % (Auto) Hydraulic Lift Operator 10/24/18 17:58 Add Manual Diff Complete 10/24/18 17:58 Total Counted 100 10/24/18 17:58 Seg Neuts % (Manual) 50.0 % (40.0-70.0) 10/24/18 17:58 0 % 10/24/18 17:58 28.0 % (13.4-35.0) 10/24/18 17:58 Reactive Lymphs % (Man) 1.0 % 10/24/18 17:58 16.0 % (0.0-7.3) H 10/24/18 17:58 3.0 % (0.0-4.3) 10/24/18 17:58 2.0 % (0.0-1.8) H 10/24/18 17:58 0 % 10/24/18 17:58 0 % 10/24/18 17:58 0 % 10/24/18 17:58 0 % 10/24/18 17:58 Nucleated RBC % Not Reportable 10/24/18 17:58 Seg Neutrophils # Man 1.8 K/mm3 (1.8-7.7) 10/24/18 17:58 Band Neutrophils # 0.0 K/mm3 10/24/18 17:58 1.0 K/mm3 (1.2-5.4) L 10/24/18 17:58 Abs React Lymphs (Man) 0.0 K/mm3 10/24/18 17:58 0.6 K/mm3 (0.0-0.8) 10/24/18 17:58 0.1 K/mm3 (0.0-0.4) 10/24/18 17:58 0.1 K/mm3 (0.0-0.1) 10/24/18 17:58 0.0 K/mm3 10/24/18 17:58 0.0 K/mm3 10/24/18 17:58 0.0 K/mm3 10/24/18 17:58 Blast Cells # 0.0 K/mm3 10/24/18 17:58 WBC Morphology Not Reportable 10/24/18 17:58 Hypersegmented Neuts Not Reportable 10/24/18 17:58 Hyposegmented Neuts Not Reportable 10/24/18 17:58 Hypogranular Neuts Not Reportable 10/24/18 17:58 Not Reportable 10/24/18 17:58 Not Reportable 10/24/18 17:58 Not Reportable 10/24/18 17:58 Not Reportable 10/24/18 17:58 Not Reportable 10/24/18 17:58 Not Reportable 10/24/18 17:58 Consistent w auto 10/24/18 17:58 Not Reportable 10/24/18 17:58 Plt Clumps, EDTA Not Reportable 10/24/18 17:58 Not Reportable 10/24/18 17:58 Not Reportable 10/24/18 17:58 Not Reportable 10/24/18 17:58 Plt Morphology Comment Not Reportable 10/24/18 17:58 RBC Morphology Not Reportable 10/24/18 17:58 Dimorphic RBCs Not Reportable 10/24/18 17:58 Not Reportable 10/24/18 17:58 Not Reportable 10/24/18 17:58 1+ 10/24/18 17:58 1+ 10/24/18 17:58 Not Reportable 10/24/18 17:58 Not Reportable 10/24/18 17:58 Not Reportable 10/24/18 17:58 Not Reportable 10/24/18 17:58 Not Reportable 10/24/18 17:58 Not Reportable 10/24/18 17:58 Not Reportable 10/24/18 17:58 1+ 10/24/18 17:58 Not Reportable 10/24/18 17:58 Not Reportable 10/24/18 17:58 Not Reportable 10/24/18 17:58 Not Reportable 10/24/18 17:58 Not Reportable 10/24/18 17:58 Not Reportable 10/24/18 17:58 Not Reportable 10/24/18 17:58 Acanthocytes (Spur) Not Reportable 10/24/18 17:58 Rouleaux Not Reportable 10/24/18 17:58 Not Reportable 10/24/18 17:58 Not Reportable 10/24/18 17:58 Not Reportable 10/24/18 17:58 Not Reportable 10/24/18 17:58 Hem Pathologist Commnt No 10/24/18 17:58 PT 16.4 Sec. (12.2-14.9) H 10/24/18 17:58 INR 1.36 (0.87-1.13) H 10/24/18 17:58 APTT 31.9 Sec. (24.2-36.6) 10/24/18 17:58 Sodium 136 mmol/L (137-145) L 10/27/18 03:49 Potassium 4.1 mmol/L (3.6-5.0) 10/27/18 03:49 Chloride 99.7 mmol/L (98-107) 10/27/18 03:49 Carbon Dioxide 27 mmol/L (22-30) 10/27/18 03:49 13 mmol/L 10/27/18 03:49 BUN 19 mg/dL (9-20) 10/27/18 03:49 1.1 mg/dL (0.8-1.5) 10/27/18 03:49 Estimated GFR > 60 ml/min 10/27/18 03:49 17 % 10/27/18 03:49 Glucose 106 mg/dL (75-100) H 10/27/18 03:49 POC Glucose 115 (70-105) H 10/27/18 07:34 8.6 % (4-6) H 10/26/18 04:38 Calcium 8.7 mg/dL (8.4-10.2) 10/27/18 03:49 Magnesium 1.90 mg/dL (1.7-2.3) 10/27/18 03:49 1.40 mg/dL (0.1-1.2) H 10/24/18 17:58 AST 19 units/L (5-40) 10/24/18 17:58 ALT 8 units/L (7-56) 10/24/18 17:58 133 units/L (35-129) H 10/24/18 17:58 0.014 ng/mL (0.00-0.029) 10/24/18 17:58 NT-Pro-B Natriuret Pep 6211 pg/mL (0-900) H 10/24/18 17:58 7.1 g/dL (6.3-8.2) 10/24/18 17:58 3.1 g/dL (3.9-5) L 10/24/18 17:58 0.8 % 10/24/18 17:58 29 units/L (13-60) 10/24/18 17:58 Yellow (Yellow) 10/24/18 22:17 Clear (Clear) 10/24/18 22:17 5.0 (5.0-7.0) 10/24/18 22:17 Ur Specific [place] 1.011 (1.003-1.030) 10/24/18 22:17 <15 mg/dl mg/dL (Negative) 10/24/18 22:17 Neg mg/dL (Negative) 10/24/18 22:17 Neg mg/dL (Negative) 10/24/18 22:17 Sm (Negative) 10/24/18 22:17 Neg (Negative) 10/24/18 22:17 Neg (Negative) 10/24/18 22:17 4.0 mg/dL (<2.0) 10/24/18 22:17 Ur Leukocyte Esterase Neg (Negative) 10/24/18 22:17 1.0 /HPF (0.0-6.0) 10/24/18 22:17 2.0 /HPF (0.0-6.0) 10/24/18 22:17 Few /HPF 10/24/18 22:17 Active Medications - Current Medications Current Medications: Generic Name Dose Route Start Last Admin Trade Name Eddie PRN Reason Stop Dose Admin Carvedilol 3.125 mg 10/25/18 22:00 10/26/18 21:51 Coreg PO Not Given BID NORRIS Docusate Sodium 100 mg 10/25/18 12:00 10/26/18 21:50 Colace PO 100 mg BID NORRIS Administration Enoxaparin Sodium 40 mg 10/25/18 22:00 10/26/18 21:49 Lovenox SUB-Q 40 mg QDAY@2200 NORRIS Administration Furosemide 40 mg 10/26/18 06:00 10/27/18 06:50 Lasix IV 40 mg 0600,1800 NORRIS Administration Levofloxacin/Dextrose 750 mg in 150 mls @ 100 mls/hr 10/25/18 20:00 10/26/18 21:50 Levaquin 750mg/150ml IV 100 mls/hr Q24H NORRIS Administration Protocol Dobutamine HCl/Dextrose 500 mg in 250 mls @ 11.196 mls/hr 10/26/18 19:00 10/26/18 18:14 Dobutrex Drip 500mg/D5w 250ml IV 4 mcg/kg/min DIRECT NORRIS 11.196 mls/hr Administration Protocol 4 MCG/KG/MIN Insulin Human Lispro 0 unit 10/25/18 11:30 10/27/18 09:10 Humalog SUB-Q Not Given ACHS NORRIS Protocol Ketorolac Tromethamine 10 mg 10/25/18 11:28 Toradol PO 10/30/18 11:27 Q6H PRN Pain, Mild (1-3) Lisinopril 5 mg 10/26/18 10:00 10/26/18 09:12 Zestril PO 5 mg QDAY NORRIS Administration Metformin HCl 750 mg 10/26/18 08:00 10/26/18 09:10 Glucophage Xr PO 750 mg QDDIAB NORRIS Administration Methocarbamol 500 mg 10/25/18 18:06 Robaxin PO Q8HR PRN Muscle Spasm Montelukast Sodium 10 mg 10/25/18 18:00 10/26/18 18:02 Singulair PO 10 mg QPM NORRIS Administration Neomycin/Polymyxin/Bacitracin 1 applic 10/25/18 12:00 10/26/18 22:45 Triple Antibiotic TP 1 applic BID NORRIS Administration Potassium Chloride 20 meq 10/25/18 20:00 10/26/18 21:51 K-Dur PO 20 meq Q12H NORRIS Administration Pravastatin Sodium 40 mg 10/25/18 22:00 10/26/18 21:50 Pravachol PO 40 mg QHS NORRIS Administration
[2018-10-27] MEDS: COREG PO SCH ×2 (10:46→22:10)
[2018-10-27] MEDS: COLACE PO SCH ×2 (10:46→22:10)
[2018-10-27] MEDS: GLUCOPHAGE XR PO SCH (10:47)
[2018-10-27] MEDS: ZESTRIL PO SCH (10:47)
[2018-10-27] MEDS: TRIPLE ANTIBIOTIC TP SCH ×2 (10:48→22:14)
[2018-10-27] MEDS: K-DUR PO SCH ×2 (11:15→22:13)
[2018-10-27] MEDS: DOBUTREX DRIP 500MG/D5W 250ML 500 MG/250 ML BAG IV SCH (15:14)
[2018-10-27] MEDS: SINGULAIR PO SCH (20:23)
[2018-10-27] MEDS: PRAVACHOL PO SCH (22:09)
[2018-10-27] MEDS: LOVENOX SUB-Q SCH (22:09)
[2018-10-27] MEDS: LEVAQUIN 750MG/150ML 750 MG/150 ML BAG IV SCH (22:13)
[2018-10-28] MEDS: LASIX IV SCH ×2 (05:15→19:23)
[2018-10-28 08:01] LABS: BUN/Creatinine Ratio 18; Blood Urea Nitrogen 18 mg/dL (9-20); Calcium 8.4 mg/dL (8.4-10.2); Hemolysis Index 19
[2018-10-28] MEDS: HumaLOG SUB-Q SCH ×4 (09:09→21:55)
[2018-10-28] MEDS: GLUCOPHAGE XR PO SCH (09:15)
[2018-10-28] MEDS: COREG PO SCH ×2 (09:16→21:55)
[2018-10-28] MEDS: ZESTRIL PO SCH (09:16)
[2018-10-28] MEDS: COLACE PO SCH ×2 (09:16→21:54)
[2018-10-28] MEDS: K-DUR PO SCH ×2 (09:17→21:54)
[2018-10-28] MEDS: TRIPLE ANTIBIOTIC TP SCH ×2 (09:17→21:54)
[2018-10-28] MEDS: SINGULAIR PO SCH (09:23)
[2018-10-28] MEDS: ZAROXOLYN PO SCH (09:24)
--- NOTE | 2018-10-28 10:20 | Progress Note ---
Assessment and Plan Pt appears to be clinically improving. add low dose zaroxolyn and cont all other present cardiac management. The patient has been seen in conjunction with Dr. Littlejohn who agrees with assessment and plan of care. - Patient Problems (1) Acute on chronic HFrEF (heart failure with reduced ejection fraction) Current Visit: Yes Status: Acute (2) Acute respiratory failure Current Visit: Yes Status: Acute (3) Anasarca Current Visit: Yes Status: Acute (4) Pulmonary hypertension Current Visit: Yes Status: Chronic (5) Ischemic cardiomyopathy Current Visit: Yes Status: Chronic (6) CAD (coronary artery disease) Current Visit: Yes Status: Chronic (7) Automatic implantable cardioverter-defibrillator in situ Current Visit: Yes Status: Chronic (8) Diabetes Current Visit: Yes Status: Chronic (9) Severe mitral regurgitation Current Visit: Yes Status: Chronic Subjective Date of service: 10/28/18 Principal diagnosis: HF Interval history: pt resting in bed, states he is feeling better, BLE persists. dobutamine gtt infusing. Objective Last Vital Signs Temp 98.2 F 10/28/18 08:13 Pulse 88 10/28/18 09:16 Resp 18 10/28/18 08:13 BP 119/80 10/28/18 08:13 Pulse Ox 100 10/28/18 08:13 - Physical Examination General: No Apparent Distress HEENT: Positive: Normocephaly Neck: Positive: JVD/HJR Cardiac: Positive: Reg Rate and Rhythm, S1/S2 Lungs: Positive: Decreased Breath Sounds Neuro: Positive: Grossly Intact Abdomen: Positive: Distended Skin: Positive: Clear Extremities: Present: +2 Edema - Labs and Meds Comprehensive Metabolic Panel 10/28/18 Range/Units 05:44 Sodium 138 (137-145) mmol/L Potassium 4.7 (3.6-5.0) mmol/L Chloride 102.1 (98-107) mmol/L Carbon Dioxide 22 (22-30) mmol/L BUN 18 (9-20) mg/dL Creatinine 1.0 (0.8-1.5) mg/dL Glucose 117 H (75-100) mg/dL Calcium 8.4 (8.4-10.2) mg/dL - Imaging and Cardiology EKG: image reviewed (ventricular paced) Echo: report reviewed (03/2017: EF 20%, LV severely dilated, grade 3 diastolic dysfunction, severe MR) Cardiac cath: report reviewed (Successful PCI to LCx and RCA in 2004; successful PCI to D1)
--- NOTE | 2018-10-28 20:15 | Progress Note ---
Assessment and Plan Assessment and plan: 63 y/o male patient with a past medical history of chronic HFrEf, ischemic cardiomyopathy, CAD s/p multiple stents (RCA & LCx in 2004, D1 in 2008), severe MR, hypertension, hyperlipidemia, diabetes, pulmonary hypertension and AICD in situ who presents with worsening bilateral lower extr emity edema x5 weeks. He also c/o SOB x1 month. He follows with Dr. 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 Patient has history of dilated systolic congestive heart failure with moderate diastolic dysfunction, ejection fraction 20%, patient claims compliance with medications and diet. Limited been managed with anti-failure medications, cardiology following, medications optimized, started on dobutamine drip --Worsening lower extremity edema; Secondary to acute exacerbation of chronic systolic congestive heart failure Plan continue medication, input output monitoring, fluid restriction, low sodium diet --Acute on chronic systolic congestive heart failure, ejection fraction 20% Dobutamin drip started by cardiology Patient is slightly better, antifailure medications Input and output monitoring low-sodium diet and daily weights Cardiology evaluation and recommendations noted and appreciated --Status post AICD; recently interrogated --Hypertension; moderate control, continue current antihypertensives When necessary hydralazine --Type 2 diabetes mellitus; Accu-Chek sliding scale as diet Oral hypoglycemics as needed, check A1c --Moderate malnutrition /hypoalbuminemia; nutrition supplements and supportive care Consider nutrition consult if needed --DVT prophylaxis : Lovenox Monitor closely and adjust management as needed Plan of care reviewed with the patient and his nurse Possible discharge in 1-2 days if stable Disposition ; follow cardiology recommendations Possible discharge in 1-2 days if stable History Interval history: Patient seen and examined today No new Overnight events reported by the nursing Receiving dobutamine drip, feels slightly better Complaints of generalized weakness Denies chest pain but mild shortness of breath Vital signs reviewed Hospitalist Physical - Constitutional Vitals: Temp Pulse Resp BP Pulse Ox 98.2 F 102 H 18 94/65 100 10/28/18 08:13 10/28/18 16:53 10/28/18 10:00 10/28/18 16:53 10/28/18 16:53 General appearance: Present: mild distress, well-nourished, obese - EENT Eyes: Present: PERRL, EOM intact - Neck Neck: Present: supple, normal ROM - Respiratory Respiratory effort: normal Respiratory: bilateral: diminished, rales, negative: rhonchi, wheezing - Cardiovascular Rhythm: regular Heart Sounds: Present: S1 & S2 - Extremities Extremities: no ischemia Extremity abnormal: edema - Abdominal General gastrointestinal: soft, non-tender, non-distended, normal bowel sounds - Integumentary Integumentary: Present: clear, warm - Psychiatric Psychiatric: appropriate mood/affect, cooperative - Neurologic Neurologic: CNII-XII intact, moves all extremities Results - Labs CBC & Chem 7: 10/24/18 17:58 10/28/18 05:44 Labs: Laboratory Last Values WBC 3.6 K/mm3 (4.5-11.0) L 10/24/18 17:58 RBC 4.50 M/mm3 (3.65-5.03) 10/24/18 17:58 Hgb 12.5 gm/dl (11.8-15.2) 10/24/18 17:58 Hct 38.9 % (35.5-45.6) 10/24/18 17:58 MCV 86 fl (84-94) 10/24/18 17:58 MCH 28 pg (28-32) 10/24/18 17:58 MCHC 32 % (32-34) 10/24/18 17:58 RDW 21.8 % (13.2-15.2) H 10/24/18 17:58 Plt Count 131 K/mm3 (140-440) L 10/24/18 17:58 [place] % (Auto) Vamp Marker 10/24/18 17:58 Add Manual Diff Complete 10/24/18 17:58 Total Counted 100 10/24/18 17:58 Seg Neuts % (Manual) 50.0 % (40.0-70.0) 10/24/18 17:58 0 % 10/24/18 17:58 28.0 % (13.4-35.0) 10/24/18 17:58 Reactive Lymphs % (Man) 1.0 % 10/24/18 17:58 16.0 % (0.0-7.3) H 10/24/18 17:58 3.0 % (0.0-4.3) 10/24/18 17:58 2.0 % (0.0-1.8) H 10/24/18 17:58 0 % 10/24/18 17:58 0 % 10/24/18 17:58 0 % 10/24/18 17:58 0 % 10/24/18 17:58 Nucleated RBC % Not Reportable 10/24/18 17:58 Seg Neutrophils # Man 1.8 K/mm3 (1.8-7.7) 10/24/18 17:58 Band Neutrophils # 0.0 K/mm3 10/24/18 17:58 1.0 K/mm3 (1.2-5.4) L 10/24/18 17:58 Abs React Lymphs (Man) 0.0 K/mm3 10/24/18 17:58 0.6 K/mm3 (0.0-0.8) 10/24/18 17:58 0.1 K/mm3 (0.0-0.4) 10/24/18 17:58 0.1 K/mm3 (0.0-0.1) 10/24/18 17:58 0.0 K/mm3 10/24/18 17:58 0.0 K/mm3 10/24/18 17:58 0.0 K/mm3 10/24/18 17:58 Blast Cells # 0.0 K/mm3 10/24/18 17:58 WBC Morphology Not Reportable 10/24/18 17:58 Hypersegmented Neuts Not Reportable 10/24/18 17:58 Hyposegmented Neuts Not Reportable 10/24/18 17:58 Hypogranular Neuts Not Reportable 10/24/18 17:58 Not Reportable 10/24/18 17:58 Not Reportable 10/24/18 17:58 Not Reportable 10/24/18 17:58 Not Reportable 10/24/18 17:58 Not Reportable 10/24/18 17:58 Not Reportable 10/24/18 17:58 Consistent w auto 10/24/18 17:58 Not Reportable 10/24/18 17:58 Plt Clumps, EDTA Not Reportable 10/24/18 17:58 Not Reportable 10/24/18 17:58 Not Reportable 10/24/18 17:58 Not Reportable 10/24/18 17:58 Plt Morphology Comment Not Reportable 10/24/18 17:58 RBC Morphology Not Reportable 10/24/18 17:58 Dimorphic RBCs Not Reportable 10/24/18 17:58 Not Reportable 10/24/18 17:58 Not Reportable 10/24/18 17:58 1+ 10/24/18 17:58 1+ 10/24/18 17:58 Not Reportable 10/24/18 17:58 Not Reportable 10/24/18 17:58 Not Reportable 10/24/18 17:58 Not Reportable 10/24/18 17:58 Not Reportable 10/24/18 17:58 Not Reportable 10/24/18 17:58 Not Reportable 10/24/18 17:58 1+ 10/24/18 17:58 Not Reportable 10/24/18 17:58 Not Reportable 10/24/18 17:58 Not Reportable 10/24/18 17:58 Not Reportable 10/24/18 17:58 Not Reportable 10/24/18 17:58 Not Reportable 10/24/18 17:58 Not Reportable 10/24/18 17:58 Acanthocytes (Spur) Not Reportable 10/24/18 17:58 Rouleaux Not Reportable 10/24/18 17:58 Not Reportable 10/24/18 17:58 Not Reportable 10/24/18 17:58 Not Reportable 10/24/18 17:58 Not Reportable 10/24/18 17:58 Hem Pathologist Commnt No 10/24/18 17:58 PT 16.4 Sec. (12.2-14.9) H 10/24/18 17:58 INR 1.36 (0.87-1.13) H 10/24/18 17:58 APTT 31.9 Sec. (24.2-36.6) 10/24/18 17:58 Sodium 138 mmol/L (137-145) 10/28/18 05:44 Potassium 4.7 mmol/L (3.6-5.0) 10/28/18 05:44 Chloride 102.1 mmol/L (98-107) 10/28/18 05:44 Carbon Dioxide 22 mmol/L (22-30) 10/28/18 05:44 19 mmol/L 10/28/18 05:44 BUN 18 mg/dL (9-20) 10/28/18 05:44 1.0 mg/dL (0.8-1.5) 10/28/18 05:44 Estimated GFR > 60 ml/min 10/28/18 05:44 18 % 10/28/18 05:44 Glucose 117 mg/dL (75-100) H 10/28/18 05:44 POC Glucose 112 (70-105) H 10/28/18 17:00 8.6 % (4-6) H 10/26/18 04:38 Calcium 8.4 mg/dL (8.4-10.2) 10/28/18 05:44 Magnesium 1.80 mg/dL (1.7-2.3) 10/28/18 05:44 1.40 mg/dL (0.1-1.2) H 10/24/18 17:58 AST 19 units/L (5-40) 10/24/18 17:58 ALT 8 units/L (7-56) 10/24/18 17:58 133 units/L (35-129) H 10/24/18 17:58 0.014 ng/mL (0.00-0.029) 10/24/18 17:58 NT-Pro-B Natriuret Pep 6211 pg/mL (0-900) H 10/24/18 17:58 7.1 g/dL (6.3-8.2) 10/24/18 17:58 3.1 g/dL (3.9-5) L 10/24/18 17:58 0.8 % 10/24/18 17:58 29 units/L (13-60) 10/24/18 17:58 Yellow (Yellow) 10/24/18 22:17 Clear (Clear) 10/24/18 22:17 5.0 (5.0-7.0) 10/24/18 22:17 Ur Specific [place] 1.011 (1.003-1.030) 10/24/18 22:17 <15 mg/dl mg/dL (Negative) 10/24/18 22:17 Neg mg/dL (Negative) 10/24/18 22:17 Neg mg/dL (Negative) 10/24/18 22:17 Sm (Negative) 10/24/18 22:17 Neg (Negative) 10/24/18 22:17 Neg (Negative) 10/24/18 22:17 4.0 mg/dL (<2.0) 10/24/18 22:17 Ur Leukocyte Esterase Neg (Negative) 10/24/18 22:17 1.0 /HPF (0.0-6.0) 10/24/18 22:17 2.0 /HPF (0.0-6.0) 10/24/18 22:17 Few /HPF 10/24/18 22:17 Active Medications - Current Medications Current Medications: Generic Name Dose Route Start Last Admin Trade Name Frecarlos PRN Reason Stop Dose Admin Carvedilol 3.125 mg 10/25/18 22:00 10/28/18 09:16 Coreg PO 3.125 mg BID NORRIS Administration Docusate Sodium 100 mg 10/25/18 12:00 10/28/18 09:16 Colace PO 100 mg BID NORRIS Administration Enoxaparin Sodium 40 mg 10/25/18 22:00 10/27/18 22:09 Lovenox SUB-Q 40 mg QDAY@2200 NORRIS Administration Furosemide 40 mg 10/26/18 06:00 10/28/18 05:15 Lasix IV 40 mg 0600,1800 NORRIS Administration Levofloxacin/Dextrose 750 mg in 150 mls @ 100 mls/hr 10/25/18 20:00 10/27/18 22:13 Levaquin 750mg/150ml IV 100 mls/hr Q24H NORRIS Administration Protocol Dobutamine HCl/Dextrose 500 mg in 250 mls @ 11.196 mls/hr 10/26/18 19:00 10/27/18 15:14 Dobutrex Drip 500mg/D5w 250ml IV 4 mcg/kg/min DIRECT NORRIS 11.196 mls/hr Administration Protocol 4 MCG/KG/MIN Insulin Human Lispro 0 unit 10/25/18 11:30 10/28/18 17:59 Humalog SUB-Q Not Given ACHS NORRIS Protocol Ketorolac Tromethamine 10 mg 10/25/18 11:28 Toradol PO 10/30/18 11:27 Q6H PRN Pain, Mild (1-3) Lisinopril 5 mg 10/26/18 10:00 10/28/18 09:16 Zestril PO 5 mg QDAY NORRIS Administration Metformin HCl 750 mg 10/26/18 08:00 10/28/18 09:15 Glucophage Xr PO 750 mg QDDIAB NORRIS Administration Methocarbamol 500 mg 10/25/18 18:06 Robaxin PO Q8HR PRN Muscle Spasm Metolazone 2.5 mg 10/28/18 18:30 Zaroxolyn PO QDAY NORRIS Montelukast Sodium 10 mg 10/25/18 18:00 10/27/18 20:23 Singulair PO 10 mg QPM NORRIS Administration Neomycin/Polymyxin/Bacitracin 1 applic 10/25/18 12:00 10/28/18 09:17 Triple Antibiotic TP 1 applic BID NORRIS Administration Potassium Chloride 20 meq 10/25/18 20:00 10/28/18 09:17 K-Dur PO 20 meq Q12H NORRIS Administration Pravastatin Sodium 40 mg 10/25/18 22:00 10/27/18 22:09 Pravachol PO 40 mg QHS NORRIS Administration
[2018-10-28] MEDS: LOVENOX SUB-Q SCH (21:54)
[2018-10-28] MEDS: LEVAQUIN 750MG/150ML 750 MG/150 ML BAG IV SCH (21:54)
[2018-10-28] MEDS: PRAVACHOL PO SCH (21:55)
[2018-10-29] MEDS: LASIX IV SCH ×2 (06:46→18:29)
[2018-10-29 07:05] LABS: BUN/Creatinine Ratio 15; Blood Urea Nitrogen 15 mg/dL (9-20); Calcium 8.3 mg/dL (8.4-10.2); Hemolysis Index 0
[2018-10-29] MEDS: K-DUR PO SCH ×2 (09:42→21:10)
[2018-10-29] MEDS: COLACE PO SCH ×2 (09:42→22:56)
[2018-10-29] MEDS: HumaLOG SUB-Q SCH ×4 (09:42→22:57)
[2018-10-29] MEDS: GLUCOPHAGE XR PO SCH (09:42)
[2018-10-29] MEDS: TRIPLE ANTIBIOTIC TP SCH ×2 (09:42→23:01)
[2018-10-29] MEDS: COREG PO SCH ×2 (09:42→22:55)
[2018-10-29] MEDS: DOBUTREX DRIP 500MG/D5W 250ML 500 MG/250 ML BAG IV SCH (09:43)
[2018-10-29] MEDS: ZAROXOLYN PO SCH (09:43)
[2018-10-29] MEDS: ZESTRIL PO SCH (09:43)
--- NOTE | 2018-10-29 10:23 | Progress Note ---
Assessment and Plan Pt appears to be clinically improving. give additional dose of lasix today and add low dose zaroxolyn and cont all other present cardiac management. The patient has been seen in conjunction with Dr. Littlejohn who agrees with assessment and plan of care. - Patient Problems (1) Acute on chronic HFrEF (heart failure with reduced ejection fraction) Current Visit: Yes Status: Acute (2) Acute respiratory failure Current Visit: Yes Status: Acute (3) Anasarca Current Visit: Yes Status: Acute (4) Pulmonary hypertension Current Visit: Yes Status: Chronic (5) Ischemic cardiomyopathy Current Visit: Yes Status: Chronic (6) CAD (coronary artery disease) Current Visit: Yes Status: Chronic (7) Automatic implantable cardioverter-defibrillator in situ Current Visit: Yes Status: Chronic (8) Diabetes Current Visit: Yes Status: Chronic (9) Severe mitral regurgitation Current Visit: Yes Status: Chronic Subjective Date of service: 10/29/18 Principal diagnosis: HF Interval history: pt resting in bed, states he is feeling better, BLE persists. dobutamine gtt infusing. Objective Last Vital Signs Temp 98.3 F 10/29/18 08:20 Pulse 91 H 10/29/18 08:20 Resp 18 10/29/18 08:20 BP 112/78 10/29/18 08:20 Pulse Ox 97 10/29/18 08:20 - Physical Examination General: No Apparent Distress HEENT: Positive: Normocephaly Neck: Positive: JVD/HJR Cardiac: Positive: Reg Rate and Rhythm, S1/S2 Lungs: Positive: Decreased Breath Sounds Neuro: Positive: Grossly Intact Abdomen: Positive: Distended Skin: Positive: Clear Extremities: Present: +2 Edema - Labs and Meds Comprehensive Metabolic Panel 10/29/18 Range/Units 05:49 Sodium 137 (137-145) mmol/L Potassium 4.0 (3.6-5.0) mmol/L Chloride 102.2 (98-107) mmol/L Carbon Dioxide 24 (22-30) mmol/L BUN 15 (9-20) mg/dL Creatinine 1.0 (0.8-1.5) mg/dL Glucose 119 H (75-100) mg/dL Calcium 8.3 L (8.4-10.2) mg/dL - Imaging and Cardiology EKG: image reviewed (ventricular paced) Echo: report reviewed (03/2017: EF 20%, LV severely dilated, grade 3 diastolic dysfunction, severe MR) Cardiac cath: report reviewed (Successful PCI to LCx and RCA in 2004; successful PCI to D1)
[2018-10-29] MEDS ORDERED: LASIX IV ONE (11:00)
--- NOTE | 2018-10-29 16:55 | Progress Note ---
Assessment and Plan Assessment and plan: 63 y/o male patient with a past medical history of chronic HFrEf, ischemic cardiomyopathy, CAD s/p multiple stents (RCA & LCx in 2004, D1 in 2008), severe MR, hypertension, hyperlipidemia, diabetes, pulmonary hypertension and AICD in situ who presents with worsening bilateral lower extre mity edema x5 weeks. He also c/o SOB x1 month. He follows with Dr. Foster iat [facility], patient received torsemide therapy in addition to his Lasix by his by his enrolled agent. Patient has history of dilated systolic congestive heart failure with moderate diastolic dysfunction, ejection fraction 20%, patient claims compliance with medications and diet. Patient is receiving anti- failure medications, cardiology following, medications optimized, started on dobutamine drip Assessment and plan; --Acute on chronic systolic congestive heart failure, ejection fraction 20% Dobutamin drip started by cardiology Patient is slightly better, antifailure medications Input and output monitoring low-sodium diet and daily weights Cardiology evaluation and recommendations noted and appreciated --Worsening lower extremity edema; Secondary to acute exacerbation of chronic systolic congestive heart failure Plan continue medication, input output monitoring, fluid restriction, low sodium diet --Status post AICD; recently interrogated --Hypertension; moderate control, continue current antihypertensives When necessary hydralazine --Type 2 diabetes mellitus; Accu-Chek sliding scale as diet Oral hypoglycemics as needed, check A1c --Moderate malnutrition /hypoalbuminemia; nutrition supplements and supportive care Consider nutrition consult if needed --DVT prophylaxis : Lovenox --Full code Monitor closely and adjust management as needed Plan of care reviewed with the patient and his nurse Possible discharge in 1-2 days if stable Disposition ; follow cardiology recommendations Possible discharge in 1-2 days if stable History Interval history: Patient seen and examined medical records reviewed Feel slightly better, on dobutamine drip Denies chest pain or shortness of breath Vital signs noted Hospitalist Physical - Constitutional Vitals: Temp Pulse Resp BP Pulse Ox 98.3 F 91 H 18 112/78 99 10/29/18 08:20 10/29/18 08:20 10/29/18 08:20 10/29/18 08:20 10/29/18 12:35 General appearance: Present: mild distress, well-nourished - EENT Eyes: Present: PERRL, EOM intact - Neck Neck: Present: supple, normal ROM - Respiratory Respiratory effort: normal Respiratory: bilateral: diminished, rales, negative: rhonchi, wheezing - Cardiovascular Rhythm: regular Heart Sounds: Present: S1 & S2 - Extremities Extremities: no ischemia Extremity abnormal: edema - Abdominal General gastrointestinal: soft, non-tender, non-distended, normal bowel sounds - Integumentary Integumentary: Present: clear, warm - Psychiatric Psychiatric: appropriate mood/affect, cooperative - Neurologic Neurologic: CNII-XII intact, moves all extremities Results - Labs CBC & Chem 7: 10/24/18 17:58 10/29/18 05:49 Labs: Laboratory Last Values WBC 3.6 K/mm3 (4.5-11.0) L 10/24/18 17:58 RBC 4.50 M/mm3 (3.65-5.03) 10/24/18 17:58 Hgb 12.5 gm/dl (11.8-15.2) 10/24/18 17:58 Hct 38.9 % (35.5-45.6) 10/24/18 17:58 MCV 86 fl (84-94) 10/24/18 17:58 MCH 28 pg (28-32) 10/24/18 17:58 MCHC 32 % (32-34) 10/24/18 17:58 RDW 21.8 % (13.2-15.2) H 10/24/18 17:58 Plt Count 131 K/mm3 (140-440) L 10/24/18 17:58 [place]borne % (Auto) Switchboard Operator Helper 10/24/18 17:58 Add Manual Diff Complete 10/24/18 17:58 Total Counted 100 10/24/18 17:58 Seg Neuts % (Manual) 50.0 % (40.0-70.0) 10/24/18 17:58 0 % 10/24/18 17:58 28.0 % (13.4-35.0) 10/24/18 17:58 Reactive Lymphs % (Man) 1.0 % 10/24/18 17:58 16.0 % (0.0-7.3) H 10/24/18 17:58 3.0 % (0.0-4.3) 10/24/18 17:58 2.0 % (0.0-1.8) H 10/24/18 17:58 0 % 10/24/18 17:58 0 % 10/24/18 17:58 0 % 10/24/18 17:58 0 % 10/24/18 17:58 Nucleated RBC % Not Reportable 10/24/18 17:58 Seg Neutrophils # Man 1.8 K/mm3 (1.8-7.7) 10/24/18 17:58 Band Neutrophils # 0.0 K/mm3 10/24/18 17:58 1.0 K/mm3 (1.2-5.4) L 10/24/18 17:58 Abs React Lymphs (Man) 0.0 K/mm3 10/24/18 17:58 0.6 K/mm3 (0.0-0.8) 10/24/18 17:58 0.1 K/mm3 (0.0-0.4) 10/24/18 17:58 0.1 K/mm3 (0.0-0.1) 10/24/18 17:58 0.0 K/mm3 10/24/18 17:58 0.0 K/mm3 10/24/18 17:58 0.0 K/mm3 10/24/18 17:58 Blast Cells # 0.0 K/mm3 10/24/18 17:58 WBC Morphology Not Reportable 10/24/18 17:58 Hypersegmented Neuts Not Reportable 10/24/18 17:58 Hyposegmented Neuts Not Reportable 10/24/18 17:58 Hypogranular Neuts Not Reportable 10/24/18 17:58 Not Reportable 10/24/18 17:58 Not Reportable 10/24/18 17:58 Not Reportable 10/24/18 17:58 Not Reportable 10/24/18 17:58 Not Reportable 10/24/18 17:58 Not Reportable 10/24/18 17:58 Consistent w auto 10/24/18 17:58 Not Reportable 10/24/18 17:58 Plt Clumps, EDTA Not Reportable 10/24/18 17:58 Not Reportable 10/24/18 17:58 Not Reportable 10/24/18 17:58 Not Reportable 10/24/18 17:58 Plt Morphology Comment Not Reportable 10/24/18 17:58 RBC Morphology Not Reportable 10/24/18 17:58 Dimorphic RBCs Not Reportable 10/24/18 17:58 Not Reportable 10/24/18 17:58 Not Reportable 10/24/18 17:58 1+ 10/24/18 17:58 1+ 10/24/18 17:58 Not Reportable 10/24/18 17:58 Not Reportable 10/24/18 17:58 Not Reportable 10/24/18 17:58 Not Reportable 10/24/18 17:58 Not Reportable 10/24/18 17:58 Not Reportable 10/24/18 17:58 Not Reportable 10/24/18 17:58 1+ 10/24/18 17:58 Not Reportable 10/24/18 17:58 Not Reportable 10/24/18 17:58 Not Reportable 10/24/18 17:58 Not Reportable 10/24/18 17:58 Not Reportable 10/24/18 17:58 Not Reportable 10/24/18 17:58 Not Reportable 10/24/18 17:58 Acanthocytes (Spur) Not Reportable 10/24/18 17:58 Rouleaux Not Reportable 10/24/18 17:58 Not Reportable 10/24/18 17:58 Not Reportable 10/24/18 17:58 Not Reportable 10/24/18 17:58 Not Reportable 10/24/18 17:58 Hem Pathologist Commnt No 10/24/18 17:58 PT 16.4 Sec. (12.2-14.9) H 10/24/18 17:58 INR 1.36 (0.87-1.13) H 10/24/18 17:58 APTT 31.9 Sec. (24.2-36.6) 10/24/18 17:58 Sodium 137 mmol/L (137-145) 10/29/18 05:49 Potassium 4.0 mmol/L (3.6-5.0) 10/29/18 05:49 Chloride 102.2 mmol/L (98-107) 10/29/18 05:49 Carbon Dioxide 24 mmol/L (22-30) 10/29/18 05:49 15 mmol/L 10/29/18 05:49 BUN 15 mg/dL (9-20) 10/29/18 05:49 1.0 mg/dL (0.8-1.5) 10/29/18 05:49 Estimated GFR > 60 ml/min 10/29/18 05:49 15 % 10/29/18 05:49 Glucose 119 mg/dL (75-100) H 10/29/18 05:49 POC Glucose 120 (70-105) H 10/29/18 16:15 8.6 % (4-6) H 10/26/18 04:38 Calcium 8.3 mg/dL (8.4-10.2) L 10/29/18 05:49 Phosphorus 3.10 mg/dL (2.5-4.5) 10/29/18 05:49 Magnesium 1.70 mg/dL (1.7-2.3) 10/29/18 05:49 1.40 mg/dL (0.1-1.2) H 10/24/18 17:58 AST 19 units/L (5-40) 10/24/18 17:58 ALT 8 units/L (7-56) 10/24/18 17:58 133 units/L (35-129) H 10/24/18 17:58 0.014 ng/mL (0.00-0.029) 10/24/18 17:58 NT-Pro-B Natriuret Pep 6211 pg/mL (0-900) H 10/24/18 17:58 7.1 g/dL (6.3-8.2) 10/24/18 17:58 3.1 g/dL (3.9-5) L 10/24/18 17:58 0.8 % 10/24/18 17:58 29 units/L (13-60) 10/24/18 17:58 Yellow (Yellow) 10/24/18 22:17 Clear (Clear) 10/24/18 22:17 5.0 (5.0-7.0) 10/24/18 22:17 Ur Specific [place] 1.011 (1.003-1.030) 10/24/18 22:17 <15 mg/dl mg/dL (Negative) 10/24/18 22:17 Neg mg/dL (Negative) 10/24/18 22:17 Neg mg/dL (Negative) 10/24/18 22:17 Sm (Negative) 10/24/18 22:17 Neg (Negative) 10/24/18 22:17 Neg (Negative) 10/24/18 22:17 4.0 mg/dL (<2.0) 10/24/18 22:17 Ur Leukocyte Esterase Neg (Negative) 10/24/18 22:17 1.0 /HPF (0.0-6.0) 10/24/18 22:17 2.0 /HPF (0.0-6.0) 10/24/18 22:17 Few /HPF 10/24/18 22:17 Active Medications - Current Medications Current Medications: Generic Name Dose Route Start Last Admin Trade Name Freq PRN Reason Stop Dose Admin Carvedilol 3.125 mg 10/25/18 22:00 10/29/18 09:42 Coreg PO 3.125 mg BID NORRIS Administration Docusate Sodium 100 mg 10/25/18 12:00 10/29/18 09:42 Colace PO 100 mg BID NORRIS Administration Enoxaparin Sodium 40 mg 10/25/18 22:00 10/28/18 21:54 Lovenox SUB-Q 40 mg QDAY@2200 NORRIS Administration Furosemide 40 mg 10/26/18 06:00 10/29/18 06:46 Lasix IV 40 mg 0600,1800 NORRIS Administration Levofloxacin/Dextrose 750 mg in 150 mls @ 100 mls/hr 10/25/18 20:00 10/28/18 21:54 Levaquin 750mg/150ml IV 100 mls/hr Q24H NORRIS Administration Protocol Dobutamine HCl/Dextrose 500 mg in 250 mls @ 11.196 mls/hr 10/26/18 19:00 10/29/18 09:43 Dobutrex Drip 500mg/D5w 250ml IV 4 mcg/kg/min DIRECT NORRIS 11.196 mls/hr Administration Protocol 4 MCG/KG/MIN Insulin Human Lispro 0 unit 10/25/18 11:30 10/29/18 09:42 Humalog SUB-Q Not Given ACHS NORRIS Protocol Ketorolac Tromethamine 10 mg 10/25/18 11:28 Toradol PO 10/30/18 11:27 Q6H PRN Pain, Mild (1-3) Lisinopril 5 mg 10/26/18 10:00 10/29/18 09:43 Zestril PO 5 mg QDAY NORRIS Administration Metformin HCl 750 mg 10/26/18 08:00 10/29/18 09:42 Glucophage Xr PO 750 mg QDDIAB NORRIS Administration Methocarbamol 500 mg 10/25/18 18:06 Robaxin PO Q8HR PRN Muscle Spasm Metolazone 2.5 mg 10/28/18 18:30 10/29/18 09:43 Zaroxolyn PO 2.5 mg QDAY NORRIS Administration Montelukast Sodium 10 mg 10/25/18 18:00 10/28/18 09:23 Singulair PO 10 mg QPM NORRIS Administration Neomycin/Polymyxin/Bacitracin 1 applic 10/25/18 12:00 10/29/18 09:42 Triple Antibiotic TP 1 applic BID NORRIS Administration Potassium Chloride 20 meq 10/25/18 20:00 10/29/18 09:42 K-Dur PO 20 meq Q12H NORRIS Administration Pravastatin Sodium 40 mg 10/25/18 22:00 10/28/18 21:55 Pravachol PO 40 mg QHS NORRIS Administration
[2018-10-29] MEDS: SINGULAIR PO SCH (18:29)
[2018-10-29] MEDS: LEVAQUIN 750MG/150ML 750 MG/150 ML BAG IV SCH (21:09)
[2018-10-29] MEDS: LOVENOX SUB-Q SCH (22:56)
[2018-10-29] MEDS: PRAVACHOL PO SCH (22:56)
[2018-10-30 04:51] LABS: BUN/Creatinine Ratio 15; Blood Urea Nitrogen 15 mg/dL (9-20); Calcium 8.2 mg/dL (8.4-10.2); Hemolysis Index 7
[2018-10-30] MEDS: LASIX IV SCH ×2 (05:50→17:43)
[2018-10-30] MEDS: TRIPLE ANTIBIOTIC TP SCH ×2 (09:39→21:34)
[2018-10-30] MEDS: K-DUR PO SCH ×2 (09:39→21:34)
[2018-10-30] MEDS: COLACE PO SCH ×2 (09:39→21:34)
[2018-10-30] MEDS: GLUCOPHAGE XR PO SCH (09:39)
[2018-10-30] MEDS: HumaLOG SUB-Q SCH ×4 (09:47→22:39)
[2018-10-30] MEDS: ZAROXOLYN PO SCH ×2 (09:50→10:03)
[2018-10-30] MEDS: COREG PO SCH ×2 (09:50→22:39)
[2018-10-30] MEDS: ZESTRIL PO SCH (09:50)
[2018-10-30] MEDS: DOBUTREX DRIP 500MG/D5W 250ML 500 MG/250 ML BAG IV SCH (09:51)
--- NOTE | 2018-10-30 09:59 | Progress Note ---
Assessment and Plan Pt appears to be clinically improving. cont diuresis and d/c dobutamine. possible d/c home as early as tomorrow. The patient has been seen in conjunction with Dr. Littlejohn who agrees with assessment and plan of care. - Patient Problems (1) Acute on chronic HFrEF (heart failure with reduced ejection fraction) Current Visit: Yes Status: Acute (2) Acute respiratory failure Current Visit: Yes Status: Acute (3) Anasarca Current Visit: Yes Status: Acute (4) Pulmonary hypertension Current Visit: Yes Status: Chronic (5) Ischemic cardiomyopathy Current Visit: Yes Status: Chronic (6) CAD (coronary artery disease) Current Visit: Yes Status: Chronic (7) Automatic implantable cardioverter-defibrillator in situ Current Visit: Yes Status: Chronic (8) Diabetes Current Visit: Yes Status: Chronic (9) Severe mitral regurgitation Current Visit: Yes Status: Chronic Subjective Date of service: 10/30/18 Principal diagnosis: HF Interval history: pt resting in bed, states he is feeling better, he ambulated around the unit ye sterday and he states SOB is improved. BLE improving. dobutamine gtt infusing. Objective Last Vital Signs Temp 97.7 F 10/30/18 07:34 Pulse 91 H 10/30/18 07:34 Resp 14 10/30/18 07:34 BP 98/68 10/30/18 07:34 Pulse Ox 100 10/30/18 07:44 - Physical Examination General: No Apparent Distress HEENT: Positive: Normocephaly Neck: Positive: neck supple, trachea midline, JVD/HJR Cardiac: Positive: Reg Rate and Rhythm, S1/S2 Lungs: Positive: Decreased Breath Sounds Neuro: Positive: Grossly Intact Abdomen: Positive: Distended Skin: Positive: Clear Extremities: Present: +2 Edema - Labs and Meds Comprehensive Metabolic Panel 10/30/18 Range/Units 03:55 Sodium 134 L (137-145) mmol/L Potassium 4.0 (3.6-5.0) mmol/L Chloride 98.5 (98-107) mmol/L Carbon Dioxide 24 (22-30) mmol/L BUN 15 (9-20) mg/dL Creatinine 1.0 (0.8-1.5) mg/dL Glucose 126 H (75-100) mg/dL Calcium 8.2 L (8.4-10.2) mg/dL - Imaging and Cardiology EKG: image reviewed (ventricular paced) Echo: report reviewed (03/2017: EF 20%, LV severely dilated, grade 3 diastolic dysfunction, severe MR) Cardiac cath: report reviewed (Successful PCI to LCx and RCA in 2004; successful PCI to D1)
--- NOTE | 2018-10-30 13:38 | Progress Note ---
Assessment and Plan Assessment and plan: 63-year-old gentleman with a history of CHF ischemic cardiomyopathy coronary artery disease ejection fraction 20% severe MR hypertension presents with acute on chronic congestive heart failure systolic heart failure with bilateral lower extremity edema and ascites. - Patient Problems (1) Hypoalbuminemia Current Visit: Yes Status: Acute Plan to address problem: Most likely secondary to volume shifts decreased oncotic pressure. (2) Acute on chronic HFrEF (heart failure with reduced ejection fraction) Current Visit: Yes Status: Acute Plan to address problem: Patient improving dobutamine drip discontinued today. Started back on oral diuretics. Discharge in 1-2 days. (3) Anasarca Current Visit: Yes Status: Acute Plan to address problem: Significant improvement with dobutamine drip continued diuretics (4) Automatic implantable cardioverter-defibrillator in situ Current Visit: Yes Status: Chronic Plan to address problem: Recently interrogated (5) CAD (coronary artery disease) Current Visit: Yes Status: Chronic Plan to address problem: Patient remains chest pain-free (6) Diabetes Current Visit: Yes Status: Chronic Plan to address problem: Fair control of diabetes continue sliding scale insulin coverage. History Interval history: Patient states he is doing much better today less lower extremity edema less shortness of breath. Able to lie flat for little while. Dobutamine drip was stopped today. No new problems over p.m. Hospitalist Physical - Constitutional Vitals: Temp Pulse Resp BP Pulse Ox 97.7 F 91 H 14 98/68 100 10/30/18 07:34 10/30/18 07:34 10/30/18 07:34 10/30/18 07:34 10/30/18 07:44 General appearance: Present: no acute distress, well-nourished - EENT ENT: other - Neck Neck: Present: supple, normal ROM, other (JVD) - Respiratory Respiratory effort: normal Respiratory: bilateral: diminished, rhonchi (few bases) - Cardiovascular Rhythm: regular - Extremities Extremities: no ischemia, pulses intact, pulses symmetrical Extremity abnormal: edema, tenderness Peripheral Pulses: within normal limits - Abdominal General gastrointestinal: soft, non-tender, non-distended, normal bowel sounds - Integumentary Integumentary: Present: clear, warm, dry - Psychiatric Psychiatric: appropriate mood/affect, intact judgment & insight, memory intact - Neurologic Neurologic: CNII-XII intact, moves all extremities Results - Labs CBC & Chem 7: 10/24/18 17:58 10/30/18 03:55 Labs: Laboratory Last Values WBC 3.6 K/mm3 (4.5-11.0) L 10/24/18 17:58 RBC 4.50 M/mm3 (3.65-5.03) 10/24/18 17:58 Hgb 12.5 gm/dl (11.8-15.2) 10/24/18 17:58 Hct 38.9 % (35.5-45.6) 10/24/18 17:58 MCV 86 fl (84-94) 10/24/18 17:58 MCH 28 pg (28-32) 10/24/18 17:58 MCHC 32 % (32-34) 10/24/18 17:58 RDW 21.8 % (13.2-15.2) H 10/24/18 17:58 Plt Count 131 K/mm3 (140-440) L 10/24/18 17:58 [place] % (Auto) Manager Analysis 10/24/18 17:58 Add Manual Diff Complete 10/24/18 17:58 Total Counted 100 10/24/18 17:58 Seg Neuts % (Manual) 50.0 % (40.0-70.0) 10/24/18 17:58 0 % 10/24/18 17:58 28.0 % (13.4-35.0) 10/24/18 17:58 Reactive Lymphs % (Man) 1.0 % 10/24/18 17:58 16.0 % (0.0-7.3) H 10/24/18 17:58 3.0 % (0.0-4.3) 10/24/18 17:58 2.0 % (0.0-1.8) H 10/24/18 17:58 0 % 10/24/18 17:58 0 % 10/24/18 17:58 0 % 10/24/18 17:58 0 % 10/24/18 17:58 Nucleated RBC % Not Reportable 10/24/18 17:58 Seg Neutrophils # Man 1.8 K/mm3 (1.8-7.7) 10/24/18 17:58 Band Neutrophils # 0.0 K/mm3 10/24/18 17:58 1.0 K/mm3 (1.2-5.4) L 10/24/18 17:58 Abs React Lymphs (Man) 0.0 K/mm3 10/24/18 17:58 0.6 K/mm3 (0.0-0.8) 10/24/18 17:58 0.1 K/mm3 (0.0-0.4) 10/24/18 17:58 0.1 K/mm3 (0.0-0.1) 10/24/18 17:58 0.0 K/mm3 10/24/18 17:58 0.0 K/mm3 10/24/18 17:58 0.0 K/mm3 10/24/18 17:58 Blast Cells # 0.0 K/mm3 10/24/18 17:58 WBC Morphology Not Reportable 10/24/18 17:58 Hypersegmented Neuts Not Reportable 10/24/18 17:58 Hyposegmented Neuts Not Reportable 10/24/18 17:58 Hypogranular Neuts Not Reportable 10/24/18 17:58 Not Reportable 10/24/18 17:58 Not Reportable 10/24/18 17:58 Not Reportable 10/24/18 17:58 Not Reportable 10/24/18 17:58 Not Reportable 10/24/18 17:58 Not Reportable 10/24/18 17:58 Consistent w auto 10/24/18 17:58 Not Reportable 10/24/18 17:58 Plt Clumps, EDTA Not Reportable 10/24/18 17:58 Not Reportable 10/24/18 17:58 Not Reportable 10/24/18 17:58 Not Reportable 10/24/18 17:58 Plt Morphology Comment Not Reportable 10/24/18 17:58 RBC Morphology Not Reportable 10/24/18 17:58 Dimorphic RBCs Not Reportable 10/24/18 17:58 Not Reportable 10/24/18 17:58 Not Reportable 10/24/18 17:58 1+ 10/24/18 17:58 1+ 10/24/18 17:58 Not Reportable 10/24/18 17:58 Not Reportable 10/24/18 17:58 Not Reportable 10/24/18 17:58 Not Reportable 10/24/18 17:58 Not Reportable 10/24/18 17:58 Not Reportable 10/24/18 17:58 Not Reportable 10/24/18 17:58 1+ 10/24/18 17:58 Not Reportable 10/24/18 17:58 Not Reportable 10/24/18 17:58 Not Reportable 10/24/18 17:58 Not Reportable 10/24/18 17:58 Not Reportable 10/24/18 17:58 Not Reportable 10/24/18 17:58 Not Reportable 10/24/18 17:58 Acanthocytes (Spur) Not Reportable 10/24/18 17:58 Rouleaux Not Reportable 10/24/18 17:58 Not Reportable 10/24/18 17:58 Not Reportable 10/24/18 17:58 Not Reportable 10/24/18 17:58 Not Reportable 10/24/18 17:58 Hem Pathologist Commnt No 10/24/18 17:58 PT 16.4 Sec. (12.2-14.9) H 10/24/18 17:58 INR 1.36 (0.87-1.13) H 10/24/18 17:58 APTT 31.9 Sec. (24.2-36.6) 10/24/18 17:58 Sodium 134 mmol/L (137-145) L 10/30/18 03:55 Potassium 4.0 mmol/L (3.6-5.0) 10/30/18 03:55 Chloride 98.5 mmol/L (98-107) 10/30/18 03:55 Carbon Dioxide 24 mmol/L (22-30) 10/30/18 03:55 16 mmol/L 10/30/18 03:55 BUN 15 mg/dL (9-20) 10/30/18 03:55 1.0 mg/dL (0.8-1.5) 10/30/18 03:55 Estimated GFR > 60 ml/min 10/30/18 03:55 15 % 10/30/18 03:55 Glucose 126 mg/dL (75-100) H 10/30/18 03:55 POC Glucose 152 (70-105) H 10/30/18 11:55 8.6 % (4-6) H 10/26/18 04:38 Calcium 8.2 mg/dL (8.4-10.2) L 10/30/18 03:55 Phosphorus 3.10 mg/dL (2.5-4.5) 10/29/18 05:49 Magnesium 1.80 mg/dL (1.7-2.3) 10/30/18 03:55 1.40 mg/dL (0.1-1.2) H 10/24/18 17:58 AST 19 units/L (5-40) 10/24/18 17:58 ALT 8 units/L (7-56) 10/24/18 17:58 133 units/L (35-129) H 10/24/18 17:58 0.014 ng/mL (0.00-0.029) 10/24/18 17:58 NT-Pro-B Natriuret Pep 6211 pg/mL (0-900) H 10/24/18 17:58 7.1 g/dL (6.3-8.2) 10/24/18 17:58 3.1 g/dL (3.9-5) L 10/24/18 17:58 0.8 % 10/24/18 17:58 29 units/L (13-60) 10/24/18 17:58 Yellow (Yellow) 10/24/18 22:17 Clear (Clear) 10/24/18 22:17 5.0 (5.0-7.0) 10/24/18 22:17 Ur Specific [place] 1.011 (1.003-1.030) 10/24/18 22:17 <15 mg/dl mg/dL (Negative) 10/24/18 22:17 Neg mg/dL (Negative) 10/24/18 22:17 Neg mg/dL (Negative) 10/24/18 22:17 Sm (Negative) 10/24/18 22:17 Neg (Negative) 10/24/18 22:17 Neg (Negative) 10/24/18 22:17 4.0 mg/dL (<2.0) 10/24/18 22:17 Ur Leukocyte Esterase Neg (Negative) 10/24/18 22:17 1.0 /HPF (0.0-6.0) 10/24/18 22:17 2.0 /HPF (0.0-6.0) 10/24/18 22:17 Few /HPF 10/24/18 22:17 Active Medications - Current Medications Current Medications: Generic Name Dose Route Start Last Admin Trade Name Eddie PRN Reason Stop Dose Admin Carvedilol 3.125 mg 10/25/18 22:00 10/30/18 09:50 Coreg PO Not Given BID NORRIS Docusate Sodium 100 mg 10/25/18 12:00 10/30/18 09:39 Colace PO 100 mg BID NORRIS Administration Enoxaparin Sodium 40 mg 10/25/18 22:00 10/29/18 22:56 Lovenox SUB-Q 40 mg QDAY@2200 NORRIS Administration Furosemide 40 mg 10/26/18 06:00 10/30/18 05:50 Lasix IV 40 mg 0600,1800 NORRIS Administration Levofloxacin/Dextrose 750 mg in 150 mls @ 100 mls/hr 10/25/18 20:00 10/29/18 21:09 Levaquin 750mg/150ml IV 100 mls/hr Q24H NORRIS Administration Protocol Insulin Human Lispro 0 unit 10/25/18 11:30 10/30/18 11:59 Humalog SUB-Q Not Given ACHS [facility] Protocol Lisinopril 5 mg 10/26/18 10:00 10/30/18 09:50 Zestril PO Not Given QDAY NORRIS Metformin HCl 750 mg 10/26/18 08:00 10/30/18 09:39 Glucophage Xr PO 750 mg QDDIAB NORRIS Administration Methocarbamol 500 mg 10/25/18 18:06 Robaxin PO Q8HR PRN Muscle Spasm Metolazone 2.5 mg 10/28/18 18:30 10/30/18 10:03 Zaroxolyn PO 2.5 mg QDAY NORRIS Administration Montelukast Sodium 10 mg 10/25/18 18:00 10/29/18 18:29 Singulair PO 10 mg QPM NORRIS Administration Neomycin/Polymyxin/Bacitracin 1 applic 10/25/18 12:00 10/30/18 09:39 Triple Antibiotic TP 1 applic BID NORRIS Administration Potassium Chloride 20 meq 10/25/18 20:00 10/30/18 09:39 K-Dur PO 20 meq Q12H NORRIS Administration Pravastatin Sodium 40 mg 10/25/18 22:00 10/29/18 22:56 Pravachol PO 40 mg QHS NORRIS Administration
[2018-10-30] MEDS: SINGULAIR PO SCH (17:39)
[2018-10-30] MEDS: PRAVACHOL PO SCH (21:34)
[2018-10-30] MEDS: LOVENOX SUB-Q SCH (21:34)
[2018-10-30] MEDS: LEVAQUIN 750MG/150ML 750 MG/150 ML BAG IV SCH (21:35)
[2018-10-31] MEDS: LASIX IV SCH (06:41)
[2018-10-31] MEDS: HumaLOG SUB-Q SCH ×4 (07:30→22:30)
--- NOTE | 2018-10-31 08:20 | Progress Note ---
Assessment and Plan Assessment and plan: Acute on chronic HFrEF. Cardiology discontinued dobutamine drip. Continue diuresis. Continue Coreg and Zestril. Ischemic cardiomyopathy. As above. Pulmonary hypertension. Acute hypoxic respiratory failure. Etiology secondary to above. Continue to treat underlying causes. AICD in situ. History of coronary artery disease. Diabetes mellitus type 2. Continue Accu-Cheks and sliding scale. Severe mitral regurgitation. History Interval history: Patient still complains of lower extremity edema and shortness of breath with exertion. Hospitalist Physical - Constitutional Vitals: Temp Pulse Resp BP Pulse Ox 98.0 F 94 H 18 94/66 97 10/30/18 23:53 10/30/18 23:53 10/30/18 23:53 10/30/18 23:53 10/30/18 23:53 General appearance: Present: no acute distress, well-nourished - EENT Eyes: Present: PERRL, EOM intact ENT: hearing intact, clear oral mucosa, dentition normal - Neck Neck: Present: supple, normal ROM - Respiratory Respiratory effort: normal Respiratory: bilateral: CTA - Cardiovascular Rhythm: regular Heart Sounds: Present: S1 & S2. Absent: gallop, rub - Extremities Extremities: no ischemia, No edema, Full ROM - Abdominal General gastrointestinal: soft, non-tender, non-distended, normal bowel sounds - Integumentary Integumentary: Present: clear, warm, dry - Neurologic Neurologic: CNII-XII intact, moves all extremities Results - Labs CBC & Chem 7: 10/24/18 17:58 10/30/18 03:55 Labs: Laboratory Last Values WBC 3.6 K/mm3 (4.5-11.0) L 10/24/18 17:58 RBC 4.50 M/mm3 (3.65-5.03) 10/24/18 17:58 Hgb 12.5 gm/dl (11.8-15.2) 10/24/18 17:58 Hct 38.9 % (35.5-45.6) 10/24/18 17:58 MCV 86 fl (84-94) 10/24/18 17:58 MCH 28 pg (28-32) 10/24/18 17:58 MCHC 32 % (32-34) 10/24/18 17:58 RDW 21.8 % (13.2-15.2) H 10/24/18 17:58 Plt Count 131 K/mm3 (140-440) L 10/24/18 17:58 [place] % (Auto) Aircraft Life Support Fitter 10/24/18 17:58 Add Manual Diff Complete 10/24/18 17:58 Total Counted 100 10/24/18 17:58 Seg Neuts % (Manual) 50.0 % (40.0-70.0) 10/24/18 17:58 0 % 10/24/18 17:58 28.0 % (13.4-35.0) 10/24/18 17:58 Reactive Lymphs % (Man) 1.0 % 10/24/18 17:58 16.0 % (0.0-7.3) H 10/24/18 17:58 3.0 % (0.0-4.3) 10/24/18 17:58 2.0 % (0.0-1.8) H 10/24/18 17:58 0 % 10/24/18 17:58 0 % 10/24/18 17:58 0 % 10/24/18 17:58 0 % 10/24/18 17:58 Nucleated RBC % Not Reportable 10/24/18 17:58 Seg Neutrophils # Man 1.8 K/mm3 (1.8-7.7) 10/24/18 17:58 Band Neutrophils # 0.0 K/mm3 10/24/18 17:58 1.0 K/mm3 (1.2-5.4) L 10/24/18 17:58 Abs React Lymphs (Man) 0.0 K/mm3 10/24/18 17:58 0.6 K/mm3 (0.0-0.8) 10/24/18 17:58 0.1 K/mm3 (0.0-0.4) 10/24/18 17:58 0.1 K/mm3 (0.0-0.1) 10/24/18 17:58 0.0 K/mm3 10/24/18 17:58 0.0 K/mm3 10/24/18 17:58 0.0 K/mm3 10/24/18 17:58 Blast Cells # 0.0 K/mm3 10/24/18 17:58 WBC Morphology Not Reportable 10/24/18 17:58 Hypersegmented Neuts Not Reportable 10/24/18 17:58 Hyposegmented Neuts Not Reportable 10/24/18 17:58 Hypogranular Neuts Not Reportable 10/24/18 17:58 Not Reportable 10/24/18 17:58 Not Reportable 10/24/18 17:58 Not Reportable 10/24/18 17:58 Not Reportable 10/24/18 17:58 Not Reportable 10/24/18 17:58 Not Reportable 10/24/18 17:58 Consistent w auto 10/24/18 17:58 Not Reportable 10/24/18 17:58 Plt Clumps, EDTA Not Reportable 10/24/18 17:58 Not Reportable 10/24/18 17:58 Not Reportable 10/24/18 17:58 Not Reportable 10/24/18 17:58 Plt Morphology Comment Not Reportable 10/24/18 17:58 RBC Morphology Not Reportable 10/24/18 17:58 Dimorphic RBCs Not Reportable 10/24/18 17:58 Not Reportable 10/24/18 17:58 Not Reportable 10/24/18 17:58 1+ 10/24/18 17:58 1+ 10/24/18 17:58 Not Reportable 10/24/18 17:58 Not Reportable 10/24/18 17:58 Not Reportable 10/24/18 17:58 Not Reportable 10/24/18 17:58 Not Reportable 10/24/18 17:58 Not Reportable 10/24/18 17:58 Not Reportable 10/24/18 17:58 1+ 10/24/18 17:58 Not Reportable 10/24/18 17:58 Not Reportable 10/24/18 17:58 Not Reportable 10/24/18 17:58 Not Reportable 10/24/18 17:58 Not Reportable 10/24/18 17:58 Not Reportable 10/24/18 17:58 Not Reportable 10/24/18 17:58 Acanthocytes (Spur) Not Reportable 10/24/18 17:58 Rouleaux Not Reportable 10/24/18 17:58 Not Reportable 10/24/18 17:58 Not Reportable 10/24/18 17:58 Not Reportable 10/24/18 17:58 Not Reportable 10/24/18 17:58 Hem Pathologist Commnt No 10/24/18 17:58 PT 16.4 Sec. (12.2-14.9) H 10/24/18 17:58 INR 1.36 (0.87-1.13) H 10/24/18 17:58 APTT 31.9 Sec. (24.2-36.6) 10/24/18 17:58 Sodium 134 mmol/L (137-145) L 10/30/18 03:55 Potassium 4.0 mmol/L (3.6-5.0) 10/30/18 03:55 Chloride 98.5 mmol/L (98-107) 10/30/18 03:55 Carbon Dioxide 24 mmol/L (22-30) 10/30/18 03:55 16 mmol/L 10/30/18 03:55 BUN 15 mg/dL (9-20) 10/30/18 03:55 1.0 mg/dL (0.8-1.5) 10/30/18 03:55 Estimated GFR > 60 ml/min 10/30/18 03:55 15 % 10/30/18 03:55 Glucose 126 mg/dL (75-100) H 10/30/18 03:55 POC Glucose 130 (70-105) H 10/30/18 21:15 8.6 % (4-6) H 10/26/18 04:38 Calcium 8.2 mg/dL (8.4-10.2) L 10/30/18 03:55 Phosphorus 3.10 mg/dL (2.5-4.5) 10/29/18 05:49 Magnesium 1.80 mg/dL (1.7-2.3) 10/30/18 03:55 1.40 mg/dL (0.1-1.2) H 10/24/18 17:58 AST 19 units/L (5-40) 10/24/18 17:58 ALT 8 units/L (7-56) 10/24/18 17:58 133 units/L (35-129) H 10/24/18 17:58 0.014 ng/mL (0.00-0.029) 10/24/18 17:58 NT-Pro-B Natriuret Pep 6211 pg/mL (0-900) H 10/24/18 17:58 7.1 g/dL (6.3-8.2) 10/24/18 17:58 3.1 g/dL (3.9-5) L 10/24/18 17:58 0.8 % 10/24/18 17:58 29 units/L (13-60) 10/24/18 17:58 Yellow (Yellow) 10/24/18 22:17 Clear (Clear) 10/24/18 22:17 5.0 (5.0-7.0) 10/24/18 22:17 Ur Specific [place] 1.011 (1.003-1.030) 10/24/18 22:17 <15 mg/dl mg/dL (Negative) 10/24/18 22:17 Neg mg/dL (Negative) 10/24/18 22:17 Neg mg/dL (Negative) 10/24/18 22:17 Sm (Negative) 10/24/18 22:17 Neg (Negative) 10/24/18 22:17 Neg (Negative) 10/24/18 22:17 4.0 mg/dL (<2.0) 10/24/18 22:17 Ur Leukocyte Esterase Neg (Negative) 10/24/18 22:17 1.0 /HPF (0.0-6.0) 10/24/18 22:17 2.0 /HPF (0.0-6.0) 10/24/18 22:17 Few /HPF 10/24/18 22:17 Active Medications - Current Medications Current Medications: Generic Name Dose Route Start Last Admin Trade Name Chandrakantq PRN Reason Stop Dose Admin Carvedilol 3.125 mg 10/25/18 22:00 10/30/18 22:39 Coreg PO Not Given BID NORRIS Docusate Sodium 100 mg 10/25/18 12:00 10/30/18 21:34 Colace PO 100 mg BID NORRIS Administration Enoxaparin Sodium 40 mg 10/25/18 22:00 10/30/18 21:34 Lovenox SUB-Q 40 mg QDAY@2200 NORRIS Administration Furosemide 40 mg 10/26/18 06:00 10/31/18 06:41 Lasix IV 40 mg 0600,1800 NORRIS Administration Levofloxacin/Dextrose 750 mg in 150 mls @ 100 mls/hr 10/25/18 20:00 10/30/18 21:35 Levaquin 750mg/150ml IV 100 mls/hr Q24H NORRIS Administration Protocol Insulin Human Lispro 0 unit 10/25/18 11:30 10/30/18 22:39 Humalog SUB-Q Not Given ACHS [facility] Protocol Lisinopril 5 mg 10/26/18 10:00 10/30/18 09:50 Zestril PO Not Given QDAY NORRIS Metformin HCl 750 mg 10/26/18 08:00 10/30/18 09:39 Glucophage Xr PO 750 mg QDDIAB NORRIS Administration Methocarbamol 500 mg 10/25/18 18:06 Robaxin PO Q8HR PRN Muscle Spasm Metolazone 2.5 mg 10/28/18 18:30 10/30/18 10:03 Zaroxolyn PO 2.5 mg QDAY NORRIS Administration Montelukast Sodium 10 mg 10/25/18 18:00 10/30/18 17:39 Singulair PO 10 mg QPM NORRIS Administration Neomycin/Polymyxin/Bacitracin 1 applic 10/25/18 12:00 10/30/18 21:34 Triple Antibiotic TP 1 applic BID NORRIS Administration Potassium Chloride 20 meq 10/25/18 20:00 10/30/18 21:34 K-Dur PO 20 meq Q12H NORRIS Administration Pravastatin Sodium 40 mg 10/25/18 22:00 10/30/18 21:34 Pravachol PO 40 mg QHS NORRIS Administration
[2018-10-31] MEDS: ZESTRIL PO SCH (09:51)
[2018-10-31] MEDS: GLUCOPHAGE XR PO SCH (09:52)
[2018-10-31] MEDS: TRIPLE ANTIBIOTIC TP SCH ×2 (09:52→22:18)
[2018-10-31] MEDS: COREG PO SCH ×2 (09:53→22:19)
[2018-10-31] MEDS: COLACE PO SCH ×2 (09:53→22:18)
[2018-10-31] MEDS: ZAROXOLYN PO SCH (09:53)
[2018-10-31] MEDS: K-DUR PO SCH ×2 (09:58→22:24)
--- NOTE | 2018-10-31 11:18 | Progress Note ---
Assessment and Plan S/p dobutamine gtt. BLE edema persists and pt with c/o increasing abdominal swelling today. Will convert IV lasix to IV bumex, cont zaroxolyn. Cont GDMT as tolerated. The patient has been seen in conjunction with Dr. Littlejohn who agrees with assessment and plan of care. - Patient Problems (1) Acute on chronic HFrEF (heart failure with reduced ejection fraction) Current Visit: Yes Status: Acute (2) Acute respiratory failure Current Visit: Yes Status: Acute (3) Anasarca Current Visit: Yes Status: Acute (4) Pulmonary hypertension Current Visit: Yes Status: Chronic (5) Ischemic cardiomyopathy Current Visit: Yes Status: Chronic (6) CAD (coronary artery disease) Current Visit: Yes Status: Chronic (7) Automatic implantable cardioverter-defibrillator in situ Current Visit: Yes Status: Chronic (8) Diabetes Current Visit: Yes Status: Chronic (9) Severe mitral regurgitation Current Visit: Yes Status: Chronic Subjective Date of service: 10/31/18 Principal diagnosis: HF Interval history: pt resting in bed, BLE persists and he states he now is having increased abdominal swelling. dobutamine gtt d/c'd. Objective Last Vital Signs Temp 98.0 F 10/31/18 03:46 Pulse 90 10/31/18 09:53 Resp 20 10/31/18 03:46 BP 96/72 10/31/18 09:53 Pulse Ox 100 10/31/18 03:46 - Physical Examination General: No Apparent Distress HEENT: Positive: Normocephaly Neck: Positive: neck supple, trachea midline, JVD/HJR Cardiac: Positive: Reg Rate and Rhythm, S1/S2 Lungs: Positive: Decreased Breath Sounds Neuro: Positive: Grossly Intact Abdomen: Positive: Distended Skin: Positive: Clear Extremities: Present: +2 Edema - Imaging and Cardiology EKG: image reviewed (ventricular paced) Echo: report reviewed (03/2017: EF 20%, LV severely dilated, grade 3 diastolic dysfunction, severe MR) Cardiac cath: report reviewed (Successful PCI to LCx and RCA in 2004; successful PCI to D1) - Telemetry EKG Rhythm: Sinus Rhythm
[2018-10-31] MEDS: BUMEX IV SCH ×3 (12:00→17:37)
[2018-10-31] MEDS: SINGULAIR PO SCH (17:37)
[2018-10-31] MEDS: PRAVACHOL PO SCH (22:18)
[2018-10-31] MEDS: LOVENOX SUB-Q SCH (22:18)
[2018-11-01] MEDS: BUMEX IV SCH ×2 (05:51→17:58)
[2018-11-01] MEDS: HumaLOG SUB-Q SCH ×4 (07:30→22:50)
--- NOTE | 2018-11-01 09:30 | Progress Note ---
Assessment and Plan Assessment and plan: Acute on chronic HFrEF. Cardiology following. S/p dobutamine gtt. BLE edema persists and pt with c/o increasing abdominal swelling. Cardiology converted IV lasix to IV bumex, Cont zaroxolyn. Cont GDMT as tolerated. Ischemic cardiomyopathy. As above. Pulmonary hypertension. Acute hypoxic respiratory failure. Etiology secondary to above. Continue to treat underlying causes. AICD in situ. History of coronary artery disease. Diabetes mellitus type 2. Continue Accu-Cheks and sliding scale. Severe mitral regurgitation. History Interval history: Patient still complains of lower extremity edema and shortness of breath with exertion. Hospitalist Physical - Constitutional Vitals: Temp Pulse Resp BP Pulse Ox 98.3 F 62 18 98/70 99 11/01/18 07:38 11/01/18 07:38 11/01/18 07:38 11/01/18 07:38 11/01/18 07:38 General appearance: Present: no acute distress, well-nourished - EENT Eyes: Present: PERRL, EOM intact ENT: hearing intact, clear oral mucosa, dentition normal - Neck Neck: Present: supple, normal ROM - Respiratory Respiratory effort: normal Respiratory: bilateral: CTA - Cardiovascular Rhythm: regular Heart Sounds: Present: S1 & S2. Absent: gallop, rub - Extremities Extremities: no ischemia, No edema, Full ROM - Abdominal General gastrointestinal: soft, non-tender, non-distended, normal bowel sounds - Integumentary Integumentary: Present: clear, warm, dry - Neurologic Neurologic: CNII-XII intact, moves all extremities Results - Labs CBC & Chem 7: 10/24/18 17:58 10/30/18 03:55 Labs: Laboratory Last Values WBC 3.6 K/mm3 (4.5-11.0) L 10/24/18 17:58 RBC 4.50 M/mm3 (3.65-5.03) 10/24/18 17:58 Hgb 12.5 gm/dl (11.8-15.2) 10/24/18 17:58 Hct 38.9 % (35.5-45.6) 10/24/18 17:58 MCV 86 fl (84-94) 10/24/18 17:58 MCH 28 pg (28-32) 10/24/18 17:58 MCHC 32 % (32-34) 10/24/18 17:58 RDW 21.8 % (13.2-15.2) H 10/24/18 17:58 Plt Count 131 K/mm3 (140-440) L 10/24/18 17:58 [place] % (Auto) Distribution Warehouse Manager 10/24/18 17:58 Add Manual Diff Complete 10/24/18 17:58 Total Counted 100 10/24/18 17:58 Seg Neuts % (Manual) 50.0 % (40.0-70.0) 10/24/18 17:58 0 % 10/24/18 17:58 28.0 % (13.4-35.0) 10/24/18 17:58 Reactive Lymphs % (Man) 1.0 % 10/24/18 17:58 16.0 % (0.0-7.3) H 10/24/18 17:58 3.0 % (0.0-4.3) 10/24/18 17:58 2.0 % (0.0-1.8) H 10/24/18 17:58 0 % 10/24/18 17:58 0 % 10/24/18 17:58 0 % 10/24/18 17:58 0 % 10/24/18 17:58 Nucleated RBC % Not Reportable 10/24/18 17:58 Seg Neutrophils # Man 1.8 K/mm3 (1.8-7.7) 10/24/18 17:58 Band Neutrophils # 0.0 K/mm3 10/24/18 17:58 1.0 K/mm3 (1.2-5.4) L 10/24/18 17:58 Abs React Lymphs (Man) 0.0 K/mm3 10/24/18 17:58 0.6 K/mm3 (0.0-0.8) 10/24/18 17:58 0.1 K/mm3 (0.0-0.4) 10/24/18 17:58 0.1 K/mm3 (0.0-0.1) 10/24/18 17:58 0.0 K/mm3 10/24/18 17:58 0.0 K/mm3 10/24/18 17:58 0.0 K/mm3 10/24/18 17:58 Blast Cells # 0.0 K/mm3 10/24/18 17:58 WBC Morphology Not Reportable 10/24/18 17:58 Hypersegmented Neuts Not Reportable 10/24/18 17:58 Hyposegmented Neuts Not Reportable 10/24/18 17:58 Hypogranular Neuts Not Reportable 10/24/18 17:58 Not Reportable 10/24/18 17:58 Not Reportable 10/24/18 17:58 Not Reportable 10/24/18 17:58 Not Reportable 10/24/18 17:58 Not Reportable 10/24/18 17:58 Not Reportable 10/24/18 17:58 Consistent w auto 10/24/18 17:58 Not Reportable 10/24/18 17:58 Plt Clumps, EDTA Not Reportable 10/24/18 17:58 Not Reportable 10/24/18 17:58 Not Reportable 10/24/18 17:58 Not Reportable 10/24/18 17:58 Plt Morphology Comment Not Reportable 10/24/18 17:58 RBC Morphology Not Reportable 10/24/18 17:58 Dimorphic RBCs Not Reportable 10/24/18 17:58 Not Reportable 10/24/18 17:58 Not Reportable 10/24/18 17:58 1+ 10/24/18 17:58 1+ 10/24/18 17:58 Not Reportable 10/24/18 17:58 Not Reportable 10/24/18 17:58 Not Reportable 10/24/18 17:58 Not Reportable 10/24/18 17:58 Not Reportable 10/24/18 17:58 Not Reportable 10/24/18 17:58 Not Reportable 10/24/18 17:58 1+ 10/24/18 17:58 Not Reportable 10/24/18 17:58 Not Reportable 10/24/18 17:58 Not Reportable 10/24/18 17:58 Not Reportable 10/24/18 17:58 Not Reportable 10/24/18 17:58 Not Reportable 10/24/18 17:58 Not Reportable 10/24/18 17:58 Acanthocytes (Spur) Not Reportable 10/24/18 17:58 Rouleaux Not Reportable 10/24/18 17:58 Not Reportable 10/24/18 17:58 Not Reportable 10/24/18 17:58 Not Reportable 10/24/18 17:58 Not Reportable 10/24/18 17:58 Hem Pathologist Commnt No 10/24/18 17:58 PT 16.4 Sec. (12.2-14.9) H 10/24/18 17:58 INR 1.36 (0.87-1.13) H 10/24/18 17:58 APTT 31.9 Sec. (24.2-36.6) 10/24/18 17:58 Sodium 134 mmol/L (137-145) L 10/30/18 03:55 Potassium 4.0 mmol/L (3.6-5.0) 10/30/18 03:55 Chloride 98.5 mmol/L (98-107) 10/30/18 03:55 Carbon Dioxide 24 mmol/L (22-30) 10/30/18 03:55 16 mmol/L 10/30/18 03:55 BUN 15 mg/dL (9-20) 10/30/18 03:55 1.0 mg/dL (0.8-1.5) 10/30/18 03:55 Estimated GFR > 60 ml/min 10/30/18 03:55 15 % 10/30/18 03:55 Glucose 126 mg/dL (75-100) H 10/30/18 03:55 POC Glucose 162 (70-105) H 11/01/18 07:43 8.6 % (4-6) H 10/26/18 04:38 Calcium 8.2 mg/dL (8.4-10.2) L 10/30/18 03:55 Phosphorus 3.10 mg/dL (2.5-4.5) 10/29/18 05:49 Magnesium 1.80 mg/dL (1.7-2.3) 10/30/18 03:55 1.40 mg/dL (0.1-1.2) H 10/24/18 17:58 AST 19 units/L (5-40) 10/24/18 17:58 ALT 8 units/L (7-56) 10/24/18 17:58 133 units/L (35-129) H 10/24/18 17:58 0.014 ng/mL (0.00-0.029) 10/24/18 17:58 NT-Pro-B Natriuret Pep 6211 pg/mL (0-900) H 10/24/18 17:58 7.1 g/dL (6.3-8.2) 10/24/18 17:58 3.1 g/dL (3.9-5) L 10/24/18 17:58 0.8 % 10/24/18 17:58 29 units/L (13-60) 10/24/18 17:58 Yellow (Yellow) 10/24/18 22:17 Clear (Clear) 10/24/18 22:17 5.0 (5.0-7.0) 10/24/18 22:17 Ur Specific [place] 1.011 (1.003-1.030) 10/24/18 22:17 <15 mg/dl mg/dL (Negative) 10/24/18 22:17 Neg mg/dL (Negative) 10/24/18 22:17 Neg mg/dL (Negative) 10/24/18 22:17 Sm (Negative) 10/24/18 22:17 Neg (Negative) 10/24/18 22:17 Neg (Negative) 10/24/18 22:17 4.0 mg/dL (<2.0) 10/24/18 22:17 Ur Leukocyte Esterase Neg (Negative) 10/24/18 22:17 1.0 /HPF (0.0-6.0) 10/24/18 22:17 2.0 /HPF (0.0-6.0) 10/24/18 22:17 Few /HPF 10/24/18 22:17 Active Medications - Current Medications Current Medications: Generic Name Dose Route Start Last Admin Trade Name Chandrakantq PRN Reason Stop Dose Admin Bumetanide 1 mg 10/31/18 11:15 11/01/18 05:51 Bumex IV 1 mg BID@0600,1800 [facility] Administration Carvedilol 3.125 mg 10/25/18 22:00 10/31/18 22:19 Coreg PO 3.125 mg BID NORRIS Administration Docusate Sodium 100 mg 10/25/18 12:00 10/31/18 22:18 Colace PO 100 mg BID NORRIS Administration Enoxaparin Sodium 40 mg 10/25/18 22:00 10/31/18 22:18 Lovenox SUB-Q 40 mg QDAY@2200 NORRIS Administration Insulin Human Lispro 0 unit 10/25/18 11:30 10/31/18 22:30 Humalog SUB-Q Not Given ACHS [facility] Protocol Lisinopril 5 mg 10/26/18 10:00 10/31/18 09:51 Zestril PO Not Given QDAY NORRIS Metformin HCl 750 mg 10/26/18 08:00 10/31/18 09:52 Glucophage Xr PO 750 mg QDDIAB NORRIS Administration Methocarbamol 500 mg 10/25/18 18:06 Robaxin PO Q8HR PRN Muscle Spasm Metolazone 2.5 mg 10/28/18 18:30 10/31/18 09:53 Zaroxolyn PO 2.5 mg QDAY NORRIS Administration Montelukast Sodium 10 mg 10/25/18 18:00 10/31/18 17:37 Singulair PO 10 mg QPM NORRIS Administration Neomycin/Polymyxin/Bacitracin 1 applic 10/25/18 12:00 10/31/18 22:18 Triple Antibiotic TP 1 applic BID NORRIS Administration Potassium Chloride 20 meq 10/25/18 20:00 10/31/18 22:24 K-Dur PO 20 meq Q12H NORRIS Administration Pravastatin Sodium 40 mg 10/25/18 22:00 10/31/18 22:18 Pravachol PO 40 mg QHS NORRIS Administration Nutrition/Malnutrition Assess - Dietary Evaluation Nutrition/Malnutrition Findings: Nutrition Notes Start: 10/31/18 17:15 Freq: Status: Active Protocol: Document 10/31/18 17:15 RM (Rec: 10/31/18 17:15 RM [id number]) Nutrition Notes Need for Assessment generated from: LOS Initial or Follow up Brief Note Height 5 ft 10 in Weight 90.5 kg [place] Body Weight (kg) 75.45 BMI 28.6 Subjective/Other Information Screened for LOS. Recorded PO intake 85% X 2 days. Nutrition Intervention Revisit per MD consult or patient Sign Off request:
[2018-11-01] MEDS: ZAROXOLYN PO SCH (10:27)
[2018-11-01] MEDS: COLACE PO SCH ×2 (10:27→22:50)
[2018-11-01] MEDS: K-DUR PO SCH ×2 (10:27→22:50)
[2018-11-01] MEDS: GLUCOPHAGE XR PO SCH (10:28)
[2018-11-01] MEDS: ZESTRIL PO SCH (10:29)
[2018-11-01] MEDS: COREG PO SCH ×2 (10:29→23:09)
[2018-11-01] MEDS: TRIPLE ANTIBIOTIC TP SCH ×2 (10:31→22:50)
--- NOTE | 2018-11-01 10:41 | Progress Note ---
Assessment and Plan 63-year-old male Acute on chronic HFrEF ICM/BIV ICD CAD/stents/RCA/LCX Severe MR Hypertension Hyperlipidemia Diabetes Pulmonary hypertension Continue IV Bumex 1 mg twice a day and metolazone Continue low-dose beta erika as tolerated Monitor potassium and magnesium Subjective Date of service: 11/01/18 Principal diagnosis: acute on chronic HFrEF Interval history: Patient sitting up in bed states that he feels much better today. Since initiating therapy with the Bumex and metolazone the patient put out 2.9 L of fluid. Objective Vital Signs Temp Pulse Resp BP BP Pulse Ox 11/01/18 07:38 98.3 F 62 18 98/70 99 11/01/18 04:01 98.4 F 107 H 22 92/66 99 11/01/18 00:30 97.8 F 94 H 22 95/65 99 10/31/18 22:19 76 144/76 10/31/18 22:00 95 10/31/18 21:45 99 10/31/18 21:35 97.4 F L 94 H 22 98/72 99 10/31/18 17:14 97.5 F L 93 H 18 97/60 99 10/31/18 11:56 96 H 18 104/72 96 - Physical Examination General: No Apparent Distress HEENT: Positive: Normocephaly Neck: Positive: neck supple, trachea midline, JVD/HJR Cardiac: Positive: Reg Rate and Rhythm Lungs: Positive: clear to auscultation, Normal Breath Sounds Neuro: Positive: Grossly Intact Abdomen: Positive: Distended Skin: Positive: Clear Extremities: Present: +2 Edema, warm - Imaging and Cardiology EKG: image reviewed (ventricular paced) Echo: report reviewed (03/2017: EF 20%, LV severely dilated, grade 3 diastolic dysfunction, severe MR) Cardiac cath: report reviewed (Successful PCI to LCx and RCA in 2004; successful PCI to D1)
[2018-11-01] MEDS: SINGULAIR PO SCH (17:58)
[2018-11-01] MEDS: LOVENOX SUB-Q SCH (22:50)
[2018-11-01] MEDS: PRAVACHOL PO SCH (22:50)
[2018-11-02] MEDS: BUMEX IV SCH ×2 (05:23→20:36)
[2018-11-02 06:16] LABS: Hematocrit 34.4 % (35.5-45.6); Hemoglobin 11.5 gm/dl (11.8-15.2); Mean Corpuscular HGB Conc 33 % (32-34); Mean Corpuscular Hemoglobin 28 pg (28-32); Mean Corpuscular Volume 84 fl (84-94); Platelet Count 122 K/mm3 (140-440)
[2018-11-02 06:24] LABS: Red Cell Distribution Width 20.4 % (13.2-15.2)
[2018-11-02 06:40] LABS: BUN/Creatinine Ratio 20; Blood Urea Nitrogen 24 mg/dL (9-20); Calcium 8.6 mg/dL (8.4-10.2); Hemolysis Index 0
[2018-11-02 07:43] LABS: Basophils % (Manual) 0 % (0.0-1.8); Total Cells Counted 100
[2018-11-02 07:44] LABS: Anisocytosis 1+; Hypochromasia 1+; Ovalocytes Few; Platelet Estimate Consistent w Auto
[2018-11-02] MEDS: HumaLOG SUB-Q SCH ×4 (08:55→22:00)
[2018-11-02] MEDS: GLUCOPHAGE XR PO SCH (08:56)
[2018-11-02] MEDS: K-DUR PO SCH ×2 (09:02→21:58)
[2018-11-02] MEDS: TRIPLE ANTIBIOTIC TP SCH ×2 (11:12→22:01)
[2018-11-02] MEDS: COLACE PO SCH ×2 (11:12→22:00)
[2018-11-02] MEDS: COREG PO SCH ×2 (11:25→21:59)
[2018-11-02] MEDS: ZAROXOLYN PO SCH (11:25)
[2018-11-02] MEDS: ZESTRIL PO SCH (11:27)
--- NOTE | 2018-11-02 11:41 | Progress Note ---
Assessment and Plan 63-year-old male Acute on chronic HFrEF ICM/BIV ICD CAD/stents/RCA/LCX Severe MR Hypertension Hyperlipidemia Diabetes Pulmonary hypertension -1.8L Continue IV Bumex 1 mg twice a day and metolazone Continue low-dose beta erika as tolerated Monitor potassium and magnesium Likely discharge Saturday or Saturday Subjective Date of service: 11/02/18 Principal diagnosis: acute on chronic HFrEF Interval history: Patient is sitting up in bed feels somewhat better however still complains of some shortness of breath Objective Vital Signs Temp Pulse Resp BP BP Pulse Ox 11/02/18 11:27 93 H 101/66 11/02/18 11:25 93 H 101/66 11/02/18 05:23 90 97/57 11/02/18 03:47 98.4 F 93 H 18 104/72 100 11/01/18 23:23 98.2 F 18 108/73 11/01/18 23:09 98 H 127/77 11/01/18 22:00 98 H 99 11/01/18 19:56 100 11/01/18 19:12 98.0 F 91 H 18 121/77 98 11/01/18 16:59 98.6 F 99 H 18 93/67 97 11/01/18 12:23 98.5 F 61 18 91/61 98 - Physical Examination General: No Apparent Distress HEENT: Positive: Normocephaly Neck: Positive: neck supple, trachea midline, JVD/HJR Cardiac: Positive: Reg Rate and Rhythm, Systolic Murmur Lungs: Positive: clear to auscultation, Normal Breath Sounds Neuro: Positive: Grossly Intact Abdomen: Negative: Distended Skin: Positive: Clear Extremities: Present: +2 Edema, warm - Labs and Meds CBC 11/02/18 Range/Units 04:41 WBC 3.8 L (4.5-11.0) K/mm3 RBC 4.10 (3.65-5.03) M/mm3 Hgb 11.5 L (11.8-15.2) gm/dl Hct 34.4 L (35.5-45.6) % Plt Count 122 L (140-440) K/mm3 Comprehensive Metabolic Panel 11/02/18 Range/Units 04:41 Sodium 138 (137-145) mmol/L Potassium 3.7 (3.6-5.0) mmol/L Chloride 98.6 (98-107) mmol/L Carbon Dioxide 25 (22-30) mmol/L BUN 24 H (9-20) mg/dL Creatinine 1.2 (0.8-1.5) mg/dL Glucose 159 H (75-100) mg/dL Calcium 8.6 (8.4-10.2) mg/dL - Imaging and Cardiology EKG: image reviewed (ventricular paced) Echo: report reviewed (03/2017: EF 20%, LV severely dilated, grade 3 diastolic dysfunction, severe MR) Cardiac cath: report reviewed (Successful PCI to LCx and RCA in 2004; successful PCI to D1)
--- NOTE | 2018-11-02 12:06 | Progress Note ---
Assessment and Plan Assessment and plan: Acute on chronic HFrEF. Cardiology following. S/p dobutamine gtt. BLE edema persists and pt with c/o increasing abdominal swelling. Continue IV Bumex 1 mg twice a day and metolazone. Cont GDMT as tolerated. Continue low-dose beta erika as tolerated Ischemic cardiomyopathy. As above. Pulmonary hypertension. Acute hypoxic respiratory failure. Etiology secondary to above. Continue to treat underlying causes. AICD in situ. History of coronary artery disease. Diabetes mellitus type 2. Continue Accu-Cheks and sliding scale. Severe mitral regurgitation. Disposition. Cardiology anticipate discharge Saturday or Saturday History Interval history: Patient still complains of lower extremity edema and shortness of breath with exertion. Hospitalist Physical - Constitutional Vitals: Temp Pulse Resp BP Pulse Ox 98.4 F 93 H 18 101/66 100 11/02/18 03:47 11/02/18 11:27 11/02/18 03:47 11/02/18 11:27 11/02/18 03:47 General appearance: Present: no acute distress, well-nourished - EENT Eyes: Present: PERRL, EOM intact ENT: hearing intact, clear oral mucosa, dentition normal - Neck Neck: Present: supple, normal ROM - Respiratory Respiratory effort: normal Respiratory: bilateral: CTA - Cardiovascular Rhythm: regular Heart Sounds: Present: S1 & S2. Absent: gallop, rub - Extremities Extremities: no ischemia, No edema, Full ROM - Abdominal General gastrointestinal: soft, non-tender, non-distended, normal bowel sounds - Integumentary Integumentary: Present: clear, warm, dry - Neurologic Neurologic: CNII-XII intact, moves all extremities Results - Labs CBC & Chem 7: 11/02/18 04:41 11/02/18 04:41 Labs: Laboratory Last Values WBC 3.8 K/mm3 (4.5-11.0) L 11/02/18 04:41 RBC 4.10 M/mm3 (3.65-5.03) 11/02/18 04:41 Hgb 11.5 gm/dl (11.8-15.2) L 11/02/18 04:41 Hct 34.4 % (35.5-45.6) L 11/02/18 04:41 MCV 84 fl (84-94) 11/02/18 04:41 MCH 28 pg (28-32) 11/02/18 04:41 MCHC 33 % (32-34) 11/02/18 04:41 RDW 20.4 % (13.2-15.2) H 11/02/18 04:41 Plt Count 122 K/mm3 (140-440) L 11/02/18 04:41 [place] % (Auto) [employer] 11/02/18 04:41 Add Manual Diff Complete 11/02/18 04:41 Total Counted 100 11/02/18 04:41 Seg Neuts % (Manual) 55.0 % (40.0-70.0) 11/02/18 04:41 0 % 11/02/18 04:41 22.0 % (13.4-35.0) 11/02/18 04:41 Reactive Lymphs % (Man) 0 % 11/02/18 04:41 21.0 % (0.0-7.3) H 11/02/18 04:41 2.0 % (0.0-4.3) 11/02/18 04:41 0 % (0.0-1.8) 11/02/18 04:41 0 % 11/02/18 04:41 0 % 11/02/18 04:41 0 % 11/02/18 04:41 0 % 11/02/18 04:41 Nucleated RBC % Not Reportable 11/02/18 04:41 Seg Neutrophils # Man 2.1 K/mm3 (1.8-7.7) 11/02/18 04:41 Band Neutrophils # 0.0 K/mm3 11/02/18 04:41 0.8 K/mm3 (1.2-5.4) L 11/02/18 04:41 Abs React Lymphs (Man) 0.0 K/mm3 11/02/18 04:41 0.8 K/mm3 (0.0-0.8) 11/02/18 04:41 0.1 K/mm3 (0.0-0.4) 11/02/18 04:41 0.0 K/mm3 (0.0-0.1) 11/02/18 04:41 0.0 K/mm3 11/02/18 04:41 0.0 K/mm3 11/02/18 04:41 0.0 K/mm3 11/02/18 04:41 Blast Cells # 0.0 K/mm3 11/02/18 04:41 WBC Morphology Not Reportable 11/02/18 04:41 WBC Morphology TNR 11/02/18 04:41 Hypersegmented Neuts Not Reportable 11/02/18 04:41 Hyposegmented Neuts Not Reportable 11/02/18 04:41 Hypogranular Neuts Not Reportable 11/02/18 04:41 Not Reportable 11/02/18 04:41 Not Reportable 11/02/18 04:41 Not Reportable 11/02/18 04:41 Not Reportable 11/02/18 04:41 Not Reportable 11/02/18 04:41 Not Reportable 11/02/18 04:41 Consistent w auto 11/02/18 04:41 Not Reportable 11/02/18 04:41 Plt Clumps, EDTA Not Reportable 11/02/18 04:41 Not Reportable 11/02/18 04:41 Not Reportable 11/02/18 04:41 Not Reportable 11/02/18 04:41 Plt Morphology Comment Not Reportable 11/02/18 04:41 RBC Morphology Not Reportable 11/02/18 04:41 Dimorphic RBCs Not Reportable 11/02/18 04:41 Not Reportable 11/02/18 04:41 1+ 11/02/18 04:41 Not Reportable 11/02/18 04:41 1+ 11/02/18 04:41 Not Reportable 11/02/18 04:41 Not Reportable 11/02/18 04:41 Not Reportable 11/02/18 04:41 Not Reportable 11/02/18 04:41 Not Reportable 11/02/18 04:41 Not Reportable 11/02/18 04:41 Not Reportable 11/02/18 04:41 Few 11/02/18 04:41 Not Reportable 11/02/18 04:41 Not Reportable 11/02/18 04:41 Not Reportable 11/02/18 04:41 Not Reportable 11/02/18 04:41 Not Reportable 11/02/18 04:41 Not Reportable 11/02/18 04:41 Not Reportable 11/02/18 04:41 Acanthocytes (Spur) Not Reportable 11/02/18 04:41 Rouleaux Not Reportable 11/02/18 04:41 Not Reportable 11/02/18 04:41 Not Reportable 11/02/18 04:41 Not Reportable 11/02/18 04:41 Not Reportable 11/02/18 04:41 Hem Pathologist Commnt No 11/02/18 04:41 PT 16.4 Sec. (12.2-14.9) H 10/24/18 17:58 INR 1.36 (0.87-1.13) H 10/24/18 17:58 APTT 31.9 Sec. (24.2-36.6) 10/24/18 17:58 Sodium 138 mmol/L (137-145) 11/02/18 04:41 Potassium 3.7 mmol/L (3.6-5.0) 11/02/18 04:41 Chloride 98.6 mmol/L (98-107) 11/02/18 04:41 Carbon Dioxide 25 mmol/L (22-30) 11/02/18 04:41 18 mmol/L 11/02/18 04:41 BUN 24 mg/dL (9-20) H 11/02/18 04:41 1.2 mg/dL (0.8-1.5) 11/02/18 04:41 Estimated GFR > 60 ml/min 11/02/18 04:41 20 % 11/02/18 04:41 Glucose 159 mg/dL (75-100) H 11/02/18 04:41 POC Glucose 171 (70-105) H 11/02/18 11:11 8.6 % (4-6) H 10/26/18 04:38 Calcium 8.6 mg/dL (8.4-10.2) 11/02/18 04:41 Phosphorus 3.10 mg/dL (2.5-4.5) 10/29/18 05:49 Magnesium 1.80 mg/dL (1.7-2.3) 10/30/18 03:55 1.40 mg/dL (0.1-1.2) H 10/24/18 17:58 AST 19 units/L (5-40) 10/24/18 17:58 ALT 8 units/L (7-56) 10/24/18 17:58 133 units/L (35-129) H 10/24/18 17:58 0.014 ng/mL (0.00-0.029) 10/24/18 17:58 NT-Pro-B Natriuret Pep 6211 pg/mL (0-900) H 10/24/18 17:58 7.1 g/dL (6.3-8.2) 10/24/18 17:58 3.1 g/dL (3.9-5) L 10/24/18 17:58 0.8 % 10/24/18 17:58 29 units/L (13-60) 10/24/18 17:58 Yellow (Yellow) 10/24/18 22:17 Clear (Clear) 10/24/18 22:17 5.0 (5.0-7.0) 10/24/18 22:17 Ur Specific [place] 1.011 (1.003-1.030) 10/24/18 22:17 <15 mg/dl mg/dL (Negative) 10/24/18 22:17 Neg mg/dL (Negative) 10/24/18 22:17 Neg mg/dL (Negative) 10/24/18 22:17 Sm (Negative) 10/24/18 22:17 Neg (Negative) 10/24/18 22:17 Neg (Negative) 10/24/18 22:17 4.0 mg/dL (<2.0) 10/24/18 22:17 Ur Leukocyte Esterase Neg (Negative) 10/24/18 22:17 1.0 /HPF (0.0-6.0) 10/24/18 22:17 2.0 /HPF (0.0-6.0) 10/24/18 22:17 Few /HPF 10/24/18 22:17 Active Medications - Current Medications Current Medications: Generic Name Dose Route Start Last Admin Trade Name Freq PRN Reason Stop Dose Admin Bumetanide 1 mg 10/31/18 11:15 11/02/18 05:23 Bumex IV Not Given BID@0600,1800 NORRIS Carvedilol 3.125 mg 10/25/18 22:00 11/02/18 11:25 Coreg PO 3.125 mg BID NORRIS Administration Docusate Sodium 100 mg 10/25/18 12:00 11/02/18 11:12 Colace PO 100 mg BID NORRIS Administration Enoxaparin Sodium 40 mg 10/25/18 22:00 11/01/18 22:50 Lovenox SUB-Q 40 mg QDAY@2200 NORRIS Administration Insulin Human Lispro 0 unit 10/25/18 11:30 11/02/18 08:55 Humalog SUB-Q Not Given ACHS [facility] Protocol Lisinopril 5 mg 10/26/18 10:00 11/02/18 11:27 Zestril PO Not Given QDAY NORRIS Metformin HCl 750 mg 10/26/18 08:00 11/02/18 08:56 Glucophage Xr PO 750 mg QDDIAB NORRIS Administration Methocarbamol 500 mg 10/25/18 18:06 Robaxin PO Q8HR PRN Muscle Spasm Metolazone 2.5 mg 10/28/18 18:30 11/02/18 11:25 Zaroxolyn PO 2.5 mg QDAY NORRIS Administration Montelukast Sodium 10 mg 10/25/18 18:00 11/01/18 17:58 Singulair PO 10 mg QPM NORRIS Administration Neomycin/Polymyxin/Bacitracin 1 applic 10/25/18 12:00 11/02/18 11:12 Triple Antibiotic TP 1 applic BID NORRIS Administration Potassium Chloride 20 meq 10/25/18 20:00 11/02/18 09:02 K-Dur PO 20 meq Q12H NORRIS Administration Pravastatin Sodium 40 mg 10/25/18 22:00 11/01/18 22:50 Pravachol PO 40 mg QHS NORRIS Administration Nutrition/Malnutrition Assess - Dietary Evaluation Nutrition/Malnutrition Findings: Nutrition Notes Start: 10/31/18 17:15 Freq: Status: Active Protocol: Document 10/31/18 17:15 RM (Rec: 10/31/18 17:15 RM [id number]) Nutrition Notes Need for Assessment generated from: LOS Initial or Follow up Brief Note Height 5 ft 10 in Weight 90.5 kg [place] Body Weight (kg) 75.45 BMI 28.6 Subjective/Other Information Screened for LOS. Recorded PO intake 85% X 2 days. Nutrition Intervention Revisit per MD consult or patient Sign Off request:
[2018-11-02] MEDS: SINGULAIR PO SCH (18:55)
[2018-11-02] MEDS: PRAVACHOL PO SCH (21:59)
[2018-11-02] MEDS: LOVENOX SUB-Q SCH (22:00)
[2018-11-03] MEDS: BUMEX IV SCH ×2 (06:27→17:00)
[2018-11-03] MEDS: HumaLOG SUB-Q SCH ×4 (08:27→22:09)
[2018-11-03] MEDS: TRIPLE ANTIBIOTIC TP SCH ×2 (09:26→22:10)
[2018-11-03] MEDS: GLUCOPHAGE XR PO SCH (09:26)
[2018-11-03] MEDS: COLACE PO SCH ×2 (09:26→22:09)
[2018-11-03] MEDS: ZAROXOLYN PO SCH (09:26)
[2018-11-03] MEDS: COREG PO SCH ×2 (09:33→22:08)
[2018-11-03] MEDS: K-DUR PO SCH ×2 (09:33→22:16)
--- NOTE | 2018-11-03 11:44 | Progress Note ---
Assessment and Plan Assessment and plan: Acute on chronic HFrEF. Cardiology following. S/p dobutamine gtt. BLE edema persists and pt with c/o increasing abdominal swelling. Continue IV Bumex 1 mg twice a day and metolazone. Cont GDMT as tolerated. Continue low-dose beta erika as tolerated Ischemic cardiomyopathy. As above. Pulmonary hypertension. Acute hypoxic respiratory failure. Etiology secondary to above. Continue to treat underlying causes. AICD in situ. History of coronary artery disease. Diabetes mellitus type 2. Continue Accu-Cheks and sliding scale. Severe mitral regurgitation. Disposition. Cardiology anticipate discharge Saturday or Saturday History Interval history: Patient still complains of lower extremity edema and shortness of breath with exertion. Hospitalist Physical - Constitutional Vitals: Temp Pulse Resp BP Pulse Ox 97.8 F 99 H 18 110/78 99 11/03/18 08:54 11/03/18 08:54 11/03/18 08:54 11/03/18 08:54 11/03/18 08:54 General appearance: Present: no acute distress, well-nourished - EENT Eyes: Present: PERRL, EOM intact ENT: hearing intact, clear oral mucosa, dentition normal - Neck Neck: Present: supple, normal ROM - Respiratory Respiratory effort: normal Respiratory: bilateral: CTA - Cardiovascular Rhythm: regular Heart Sounds: Present: S1 & S2. Absent: gallop, rub - Extremities Extremities: no ischemia, No edema, Full ROM - Abdominal General gastrointestinal: soft, non-tender, non-distended, normal bowel sounds - Integumentary Integumentary: Present: clear, warm, dry - Neurologic Neurologic: CNII-XII intact, moves all extremities Results - Labs CBC & Chem 7: 11/02/18 04:41 11/02/18 04:41 Labs: Laboratory Last Values WBC 3.8 K/mm3 (4.5-11.0) L 11/02/18 04:41 RBC 4.10 M/mm3 (3.65-5.03) 11/02/18 04:41 Hgb 11.5 gm/dl (11.8-15.2) L 11/02/18 04:41 Hct 34.4 % (35.5-45.6) L 11/02/18 04:41 MCV 84 fl (84-94) 11/02/18 04:41 MCH 28 pg (28-32) 11/02/18 04:41 MCHC 33 % (32-34) 11/02/18 04:41 RDW 20.4 % (13.2-15.2) H 11/02/18 04:41 Plt Count 122 K/mm3 (140-440) L 11/02/18 04:41 [place] % (Auto) Podiatric Aide 11/02/18 04:41 Add Manual Diff Complete 11/02/18 04:41 Total Counted 100 11/02/18 04:41 Seg Neuts % (Manual) 55.0 % (40.0-70.0) 11/02/18 04:41 0 % 11/02/18 04:41 22.0 % (13.4-35.0) 11/02/18 04:41 Reactive Lymphs % (Man) 0 % 11/02/18 04:41 21.0 % (0.0-7.3) H 11/02/18 04:41 2.0 % (0.0-4.3) 11/02/18 04:41 0 % (0.0-1.8) 11/02/18 04:41 0 % 11/02/18 04:41 0 % 11/02/18 04:41 0 % 11/02/18 04:41 0 % 11/02/18 04:41 Nucleated RBC % Not Reportable 11/02/18 04:41 Seg Neutrophils # Man 2.1 K/mm3 (1.8-7.7) 11/02/18 04:41 Band Neutrophils # 0.0 K/mm3 11/02/18 04:41 0.8 K/mm3 (1.2-5.4) L 11/02/18 04:41 Abs React Lymphs (Man) 0.0 K/mm3 11/02/18 04:41 0.8 K/mm3 (0.0-0.8) 11/02/18 04:41 0.1 K/mm3 (0.0-0.4) 11/02/18 04:41 0.0 K/mm3 (0.0-0.1) 11/02/18 04:41 0.0 K/mm3 11/02/18 04:41 0.0 K/mm3 11/02/18 04:41 0.0 K/mm3 11/02/18 04:41 Blast Cells # 0.0 K/mm3 11/02/18 04:41 WBC Morphology Not Reportable 11/02/18 04:41 WBC Morphology TNR 11/02/18 04:41 Hypersegmented Neuts Not Reportable 11/02/18 04:41 Hyposegmented Neuts Not Reportable 11/02/18 04:41 Hypogranular Neuts Not Reportable 11/02/18 04:41 Not Reportable 11/02/18 04:41 Not Reportable 11/02/18 04:41 Not Reportable 11/02/18 04:41 Not Reportable 11/02/18 04:41 Not Reportable 11/02/18 04:41 Not Reportable 11/02/18 04:41 Consistent w auto 11/02/18 04:41 Not Reportable 11/02/18 04:41 Plt Clumps, EDTA Not Reportable 11/02/18 04:41 Not Reportable 11/02/18 04:41 Not Reportable 11/02/18 04:41 Not Reportable 11/02/18 04:41 Plt Morphology Comment Not Reportable 11/02/18 04:41 RBC Morphology Not Reportable 11/02/18 04:41 Dimorphic RBCs Not Reportable 11/02/18 04:41 Not Reportable 11/02/18 04:41 1+ 11/02/18 04:41 Not Reportable 11/02/18 04:41 1+ 11/02/18 04:41 Not Reportable 11/02/18 04:41 Not Reportable 11/02/18 04:41 Not Reportable 11/02/18 04:41 Not Reportable 11/02/18 04:41 Not Reportable 11/02/18 04:41 Not Reportable 11/02/18 04:41 Not Reportable 11/02/18 04:41 Few 11/02/18 04:41 Not Reportable 11/02/18 04:41 Not Reportable 11/02/18 04:41 Not Reportable 11/02/18 04:41 Not Reportable 11/02/18 04:41 Not Reportable 11/02/18 04:41 Not Reportable 11/02/18 04:41 Not Reportable 11/02/18 04:41 Acanthocytes (Spur) Not Reportable 11/02/18 04:41 Rouleaux Not Reportable 11/02/18 04:41 Not Reportable 11/02/18 04:41 Not Reportable 11/02/18 04:41 Not Reportable 11/02/18 04:41 Not Reportable 11/02/18 04:41 Hem Pathologist Commnt No 11/02/18 04:41 PT 16.4 Sec. (12.2-14.9) H 10/24/18 17:58 INR 1.36 (0.87-1.13) H 10/24/18 17:58 APTT 31.9 Sec. (24.2-36.6) 10/24/18 17:58 Sodium 138 mmol/L (137-145) 11/02/18 04:41 Potassium 3.7 mmol/L (3.6-5.0) 11/02/18 04:41 Chloride 98.6 mmol/L (98-107) 11/02/18 04:41 Carbon Dioxide 25 mmol/L (22-30) 11/02/18 04:41 18 mmol/L 11/02/18 04:41 BUN 24 mg/dL (9-20) H 11/02/18 04:41 1.2 mg/dL (0.8-1.5) 11/02/18 04:41 Estimated GFR > 60 ml/min 11/02/18 04:41 20 % 11/02/18 04:41 Glucose 159 mg/dL (75-100) H 11/02/18 04:41 POC Glucose 131 (70-105) H 11/03/18 07:51 8.6 % (4-6) H 10/26/18 04:38 Calcium 8.6 mg/dL (8.4-10.2) 11/02/18 04:41 Phosphorus 3.10 mg/dL (2.5-4.5) 10/29/18 05:49 Magnesium 1.80 mg/dL (1.7-2.3) 10/30/18 03:55 1.40 mg/dL (0.1-1.2) H 10/24/18 17:58 AST 19 units/L (5-40) 10/24/18 17:58 ALT 8 units/L (7-56) 10/24/18 17:58 133 units/L (35-129) H 10/24/18 17:58 0.014 ng/mL (0.00-0.029) 10/24/18 17:58 NT-Pro-B Natriuret Pep 6211 pg/mL (0-900) H 10/24/18 17:58 7.1 g/dL (6.3-8.2) 10/24/18 17:58 3.1 g/dL (3.9-5) L 10/24/18 17:58 0.8 % 10/24/18 17:58 29 units/L (13-60) 10/24/18 17:58 Yellow (Yellow) 10/24/18 22:17 Clear (Clear) 10/24/18 22:17 5.0 (5.0-7.0) 10/24/18 22:17 Ur Specific [place] 1.011 (1.003-1.030) 10/24/18 22:17 <15 mg/dl mg/dL (Negative) 10/24/18 22:17 Neg mg/dL (Negative) 10/24/18 22:17 Neg mg/dL (Negative) 10/24/18 22:17 Sm (Negative) 10/24/18 22:17 Neg (Negative) 10/24/18 22:17 Neg (Negative) 10/24/18 22:17 4.0 mg/dL (<2.0) 10/24/18 22:17 Ur Leukocyte Esterase Neg (Negative) 10/24/18 22:17 1.0 /HPF (0.0-6.0) 10/24/18 22:17 2.0 /HPF (0.0-6.0) 10/24/18 22:17 Few /HPF 10/24/18 22:17 Active Medications - Current Medications Current Medications: Generic Name Dose Route Start Last Admin Trade Name Freq PRN Reason Stop Dose Admin Bumetanide 1 mg 10/31/18 11:15 11/03/18 06:27 Bumex IV 1 mg BID@0600,1800 NORRIS Administration Carvedilol 3.125 mg 10/25/18 22:00 11/03/18 09:33 Coreg PO 3.125 mg BID NORRIS Administration Docusate Sodium 100 mg 10/25/18 12:00 11/03/18 09:26 Colace PO 100 mg BID NORRIS Administration Enoxaparin Sodium 40 mg 10/25/18 22:00 11/02/18 22:00 Lovenox SUB-Q 40 mg QDAY@2200 NORRIS Administration Insulin Human Lispro 0 unit 10/25/18 11:30 11/03/18 08:27 Humalog SUB-Q Not Given ACHS [facility] Protocol Lisinopril 5 mg 10/26/18 10:00 11/02/18 11:27 Zestril PO Not Given QDAY NORRIS Metformin HCl 750 mg 10/26/18 08:00 11/03/18 09:26 Glucophage Xr PO 750 mg QDDIAB NORRIS Administration Methocarbamol 500 mg 10/25/18 18:06 Robaxin PO Q8HR PRN Muscle Spasm Metolazone 2.5 mg 10/28/18 18:30 11/03/18 09:26 Zaroxolyn PO 2.5 mg QDAY NORRIS Administration Montelukast Sodium 10 mg 10/25/18 18:00 11/02/18 18:55 Singulair PO 10 mg QPM NORRIS Administration Neomycin/Polymyxin/Bacitracin 1 applic 10/25/18 12:00 11/03/18 09:26 Triple Antibiotic TP 1 applic BID NORRIS Administration Potassium Chloride 20 meq 10/25/18 20:00 11/03/18 09:33 K-Dur PO 20 meq Q12H NORRIS Administration Pravastatin Sodium 40 mg 10/25/18 22:00 11/02/18 21:59 Pravachol PO 40 mg QHS NORRIS Administration Nutrition/Malnutrition Assess - Dietary Evaluation Nutrition/Malnutrition Findings: Nutrition Notes Start: 10/31/18 17:15 Freq: Status: Active Protocol: Document 10/31/18 17:15 RM (Rec: 10/31/18 17:15 RM [id number]) Nutrition Notes Need for Assessment generated from: LOS Initial or Follow up Brief Note Height 5 ft 10 in Weight 90.5 kg [place] Body Weight (kg) 75.45 BMI 28.6 Subjective/Other Information Screened for LOS. Recorded PO intake 85% X 2 days. Nutrition Intervention Revisit per MD consult or patient Sign Off request:
--- NOTE | 2018-11-03 13:51 | Progress Note ---
Assessment and Plan Continue intravenous diuretics and other management. - Patient Problems (1) Acute on chronic HFrEF (heart failure with reduced ejection fraction) Current Visit: Yes Status: Acute (2) Cardiac resynchronization therapy defibrillator (PIGGYBACK CLERK-D) in place Current Visit: Yes Status: Chronic (3) Ischemic cardiomyopathy Current Visit: Yes Status: Chronic (4) CAD (coronary artery disease) Current Visit: Yes Status: Chronic Qualifiers: Coronary Disease-Associated Artery/Lesion type: eagle artery (5) History of coronary artery stent placement Current Visit: Yes Status: Chronic (6) Severe mitral regurgitation Current Visit: Yes Status: Chronic (7) Pulmonary hypertension Current Visit: Yes Status: Chronic (8) Diabetes Current Visit: Yes Status: Chronic Subjective Date of service: 11/03/18 Principal diagnosis: Acute on chronic HFrEF, Ischemic CMP, PIGGYBACK CLERK/ICD, CAD s/p PCI, Severe MR Interval history: He is less short of breath today. Objective Vital Signs Temp Pulse Resp BP BP Pulse Ox 11/03/18 08:54 97.8 F 99 H 18 110/78 99 11/03/18 05:35 98.3 F 69 18 98/65 95 11/02/18 23:14 97.5 F L 94 H 20 104/73 97 11/02/18 22:00 80 20 100 11/02/18 19:18 98.3 F 49 L 20 97/69 99 11/02/18 19:01 97 H 102/72 98 11/02/18 16:16 57 L 99 - Physical Examination General: No Apparent Distress HEENT: Positive: Normocephaly Neck: Positive: neck supple, trachea midline, JVD/HJR Cardiac: Positive: Reg Rate and Rhythm, S1/S2 Lungs: Positive: Rales (few basal rales) Neuro: Positive: Grossly Intact Abdomen: Positive: Soft, Active Bowel Sounds. Negative: Tender Skin: Positive: Clear Musculoskeletal: Normal Range of Motion Extremities: Present: +2 Edema (pitting bilateral leg edema) - Imaging and Cardiology Echo: report reviewed (03/2017: EF 20%, LV severely dilated, grade 3 diastolic dysfunction, severe MR) Cardiac cath: report reviewed (Successful PCI to LCx and RCA in 2004; successful PCI to D1)
[2018-11-03] MEDS: ZESTRIL PO SCH (16:15)
[2018-11-03] MEDS: SINGULAIR PO SCH (17:38)
[2018-11-03] MEDS: LOVENOX SUB-Q SCH (22:09)
[2018-11-03] MEDS: PRAVACHOL PO SCH (22:10)
[2018-11-04] MEDS: BUMEX IV SCH ×2 (06:12→18:20)
[2018-11-04 06:35] LABS: Hematocrit 35.1 % (35.5-45.6); Hemoglobin 11.6 gm/dl (11.8-15.2); Mean Corpuscular HGB Conc 33 % (32-34); Mean Corpuscular Hemoglobin 28 pg (28-32); Mean Corpuscular Volume 86 fl (84-94)
[2018-11-04 06:53] LABS: Platelet Count 94 K/mm3 (140-440); Red Cell Distribution Width 20.9 % (13.2-15.2)
[2018-11-04 07:00] LABS: BUN/Creatinine Ratio 23; Blood Urea Nitrogen 27 mg/dL (9-20); Calcium 8.6 mg/dL (8.4-10.2); Hemolysis Index 7
[2018-11-04] MEDS: GLUCOPHAGE XR PO SCH (08:00)
[2018-11-04] MEDS: HumaLOG SUB-Q SCH ×4 (08:17→21:34)
[2018-11-04] MEDS: K-DUR PO SCH ×2 (09:05→21:33)
[2018-11-04] MEDS: ZAROXOLYN PO SCH (09:06)
[2018-11-04] MEDS: TRIPLE ANTIBIOTIC TP SCH ×2 (09:07→21:34)
[2018-11-04] MEDS: ZESTRIL PO SCH (09:07)
[2018-11-04] MEDS: COLACE PO SCH ×2 (09:07→21:33)
[2018-11-04] MEDS: COREG PO SCH ×2 (09:08→21:34)
--- NOTE | 2018-11-04 09:42 | Progress Note ---
Assessment and Plan Assessment and plan: Acute on chronic HFrEF. Cardiology following. S/p dobutamine gtt. BLE edema persists and pt with c/o increasing abdominal swelling. Continue IV Bumex 1 mg twice a day and metolazone. Continue low-dose beta erika as tolerated Ischemic cardiomyopathy. As above. Pulmonary hypertension. Acute hypoxic respiratory failure. Etiology secondary to above. Continue to treat underlying causes. AICD in situ. History of coronary artery disease. Diabetes mellitus type 2. Continue Accu-Cheks and sliding scale. Severe mitral regurgitation. Disposition. patient feels better. Get PT eval. Check Oxygen sat on RA. Hopefully discharge home soon in 1-2 days. History Interval history: Less shortness of breath No chest pain Hospitalist Physical - Physical exam Narrative exam: Gen: Not in acute distress, lying in bed, HEENT: Normocephalic, atraumatic Neck: supple, no JVD Heart: S1 and S2 reg, no murmurs, rubs or gallop Lungs: Clear, no crackles or wheeze Abd: soft, non tender, non distended, normal BS Ext: Bilateral leg edema, no clubbing, no cyanosis Neuro:awake,alert, Oriented X 3. No focal signs Psych: Normal mood - Constitutional Vitals: Temp Pulse Resp BP Pulse Ox 97.4 F L 83 14 101/73 99 11/04/18 07:55 11/04/18 09:08 11/04/18 07:55 11/04/18 09:08 11/04/18 07:55 General appearance: Present: no acute distress, well-nourished Results - Labs CBC & Chem 7: 11/04/18 05:55 11/04/18 05:55 Labs: Laboratory Last Values WBC 4.4 K/mm3 (4.5-11.0) L 11/04/18 05:55 RBC 4.10 M/mm3 (3.65-5.03) 11/04/18 05:55 Hgb 11.6 gm/dl (11.8-15.2) L 11/04/18 05:55 Hct 35.1 % (35.5-45.6) L 11/04/18 05:55 MCV 86 fl (84-94) 11/04/18 05:55 MCH 28 pg (28-32) 11/04/18 05:55 MCHC 33 % (32-34) 11/04/18 05:55 RDW 20.9 % (13.2-15.2) H 11/04/18 05:55 Plt Count 94 K/mm3 (140-440) L 11/04/18 05:55 Andrew % (Auto) Chemical Laboratory Scientist 11/04/18 05:55 Add Manual Diff Complete 11/02/18 04:41 Total Counted 100 11/02/18 04:41 Seg Neuts % (Manual) 55.0 % (40.0-70.0) 11/02/18 04:41 0 % 11/02/18 04:41 22.0 % (13.4-35.0) 11/02/18 04:41 Reactive Lymphs % (Man) 0 % 11/02/18 04:41 21.0 % (0.0-7.3) H 11/02/18 04:41 2.0 % (0.0-4.3) 11/02/18 04:41 0 % (0.0-1.8) 11/02/18 04:41 0 % 11/02/18 04:41 0 % 11/02/18 04:41 0 % 11/02/18 04:41 0 % 11/02/18 04:41 Nucleated RBC % Not Reportable 11/02/18 04:41 Seg Neutrophils # Man 2.1 K/mm3 (1.8-7.7) 11/02/18 04:41 Band Neutrophils # 0.0 K/mm3 11/02/18 04:41 0.8 K/mm3 (1.2-5.4) L 11/02/18 04:41 Abs React Lymphs (Man) 0.0 K/mm3 11/02/18 04:41 0.8 K/mm3 (0.0-0.8) 11/02/18 04:41 0.1 K/mm3 (0.0-0.4) 11/02/18 04:41 0.0 K/mm3 (0.0-0.1) 11/02/18 04:41 0.0 K/mm3 11/02/18 04:41 0.0 K/mm3 11/02/18 04:41 0.0 K/mm3 11/02/18 04:41 Blast Cells # 0.0 K/mm3 11/02/18 04:41 WBC Morphology TNR 11/04/18 05:55 Hypersegmented Neuts Not Reportable 11/02/18 04:41 Hyposegmented Neuts Not Reportable 11/02/18 04:41 Hypogranular Neuts Not Reportable 11/02/18 04:41 Not Reportable 11/02/18 04:41 Not Reportable 11/02/18 04:41 Not Reportable 11/02/18 04:41 Not Reportable 11/02/18 04:41 Not Reportable 11/02/18 04:41 Not Reportable 11/02/18 04:41 Consistent w auto 11/02/18 04:41 Not Reportable 11/02/18 04:41 Plt Clumps, EDTA Not Reportable 11/02/18 04:41 Not Reportable 11/02/18 04:41 Not Reportable 11/02/18 04:41 Not Reportable 11/02/18 04:41 Plt Morphology Comment Not Reportable 11/02/18 04:41 RBC Morphology Not Reportable 11/02/18 04:41 Dimorphic RBCs Not Reportable 11/02/18 04:41 Not Reportable 11/02/18 04:41 1+ 11/02/18 04:41 Not Reportable 11/02/18 04:41 1+ 11/02/18 04:41 Not Reportable 11/02/18 04:41 Not Reportable 11/02/18 04:41 Not Reportable 11/02/18 04:41 Not Reportable 11/02/18 04:41 Not Reportable 11/02/18 04:41 Not Reportable 11/02/18 04:41 Not Reportable 11/02/18 04:41 Few 11/02/18 04:41 Not Reportable 11/02/18 04:41 Not Reportable 11/02/18 04:41 Not Reportable 11/02/18 04:41 Not Reportable 11/02/18 04:41 Not Reportable 11/02/18 04:41 Not Reportable 11/02/18 04:41 Not Reportable 11/02/18 04:41 Acanthocytes (Spur) Not Reportable 11/02/18 04:41 Rouleaux Not Reportable 11/02/18 04:41 Not Reportable 11/02/18 04:41 Not Reportable 11/02/18 04:41 Not Reportable 11/02/18 04:41 Not Reportable 11/02/18 04:41 Hem Pathologist Commnt No 11/02/18 04:41 PT 16.4 Sec. (12.2-14.9) H 10/24/18 17:58 INR 1.36 (0.87-1.13) H 10/24/18 17:58 APTT 31.9 Sec. (24.2-36.6) 10/24/18 17:58 Sodium 138 mmol/L (137-145) 11/04/18 05:55 Potassium 4.0 mmol/L (3.6-5.0) 11/04/18 05:55 Chloride 101.6 mmol/L (98-107) 11/04/18 05:55 Carbon Dioxide 24 mmol/L (22-30) 11/04/18 05:55 16 mmol/L 11/04/18 05:55 BUN 27 mg/dL (9-20) H 11/04/18 05:55 1.2 mg/dL (0.8-1.5) 11/04/18 05:55 Estimated GFR > 60 ml/min 11/04/18 05:55 23 % 11/04/18 05:55 Glucose 134 mg/dL (75-100) H 11/04/18 05:55 POC Glucose 114 (70-105) H 11/03/18 21:04 8.6 % (4-6) H 10/26/18 04:38 Calcium 8.6 mg/dL (8.4-10.2) 11/04/18 05:55 Phosphorus 3.10 mg/dL (2.5-4.5) 10/29/18 05:49 Magnesium 1.80 mg/dL (1.7-2.3) 10/30/18 03:55 1.40 mg/dL (0.1-1.2) H 10/24/18 17:58 AST 19 units/L (5-40) 10/24/18 17:58 ALT 8 units/L (7-56) 10/24/18 17:58 133 units/L (35-129) H 10/24/18 17:58 0.014 ng/mL (0.00-0.029) 10/24/18 17:58 NT-Pro-B Natriuret Pep 6211 pg/mL (0-900) H 10/24/18 17:58 7.1 g/dL (6.3-8.2) 10/24/18 17:58 3.1 g/dL (3.9-5) L 10/24/18 17:58 0.8 % 10/24/18 17:58 29 units/L (13-60) 10/24/18 17:58 Yellow (Yellow) 10/24/18 22:17 Clear (Clear) 10/24/18 22:17 5.0 (5.0-7.0) 10/24/18 22:17 Ur Specific [place] 1.011 (1.003-1.030) 10/24/18 22:17 <15 mg/dl mg/dL (Negative) 10/24/18 22:17 Neg mg/dL (Negative) 10/24/18 22:17 Neg mg/dL (Negative) 10/24/18 22:17 Sm (Negative) 10/24/18 22:17 Neg (Negative) 10/24/18 22:17 Neg (Negative) 10/24/18 22:17 4.0 mg/dL (<2.0) 10/24/18 22:17 Ur Leukocyte Esterase Neg (Negative) 10/24/18 22:17 1.0 /HPF (0.0-6.0) 10/24/18 22:17 2.0 /HPF (0.0-6.0) 10/24/18 22:17 Few /HPF 10/24/18 22:17 Active Medications - Current Medications Current Medications: Generic Name Dose Route Start Last Admin Trade Name Eddie PRN Reason Stop Dose Admin Bumetanide 1 mg 10/31/18 11:15 11/04/18 06:12 Bumex IV Not Given BID@0600,1800 [facility] Carvedilol 3.125 mg 10/25/18 22:00 11/04/18 09:08 Coreg PO Not Given BID NORRIS Docusate Sodium 100 mg 10/25/18 12:00 11/04/18 09:07 Colace PO 100 mg BID NORRIS Administration Enoxaparin Sodium 40 mg 10/25/18 22:00 11/03/18 22:09 Lovenox SUB-Q 40 mg QDAY@2200 NORRIS Administration Insulin Human Lispro 0 unit 10/25/18 11:30 11/04/18 08:17 Humalog SUB-Q Not Given ACHS [facility] Protocol Lisinopril 5 mg 10/26/18 10:00 11/04/18 09:07 Zestril PO Not Given QDAY NORRIS Metformin HCl 750 mg 10/26/18 08:00 11/04/18 08:00 Glucophage Xr PO 750 mg QDDIAB NORRIS Administration Methocarbamol 500 mg 10/25/18 18:06 Robaxin PO Q8HR PRN Muscle Spasm Metolazone 2.5 mg 10/28/18 18:30 11/04/18 09:06 Zaroxolyn PO 2.5 mg QDAY NORRIS Administration Montelukast Sodium 10 mg 10/25/18 18:00 11/03/18 17:38 Singulair PO 10 mg QPM NORRIS Administration Neomycin/Polymyxin/Bacitracin 1 applic 10/25/18 12:00 11/04/18 09:07 Triple Antibiotic TP 1 applic BID NORRIS Administration Potassium Chloride 20 meq 10/25/18 20:00 11/04/18 09:05 K-Dur PO 20 meq Q12H NORRIS Administration Pravastatin Sodium 40 mg 10/25/18 22:00 11/03/18 22:10 Pravachol PO 40 mg QHS NORRIS Administration Nutrition/Malnutrition Assess - Dietary Evaluation Nutrition/Malnutrition Findings: Nutrition Notes Start: 10/31/18 17:15 Freq: Status: Active Protocol: Document 10/31/18 17:15 RM (Rec: 10/31/18 17:15 RM [id number]) Nutrition Notes Need for Assessment generated from: LOS Initial or Follow up Brief Note Height 5 ft 10 in Weight 90.5 kg [place] Body Weight (kg) 75.45 BMI 28.6 Subjective/Other Information Screened for LOS. Recorded PO intake 85% X 2 days. Nutrition Intervention Revisit per MD consult or patient Sign Off request:
[2018-11-04 10:23] LABS: Anisocytosis 1+; Basophils % (Manual) 0 % (0.0-1.8); Eosinophils % (Manual) 0 % (0.0-4.3); Total Cells Counted 100
[2018-11-04 10:24] LABS: Hypochromasia 1+; Platelet Estimate Consistent w Auto
--- NOTE | 2018-11-04 11:39 | Progress Note ---
Assessment and Plan Continue IV diuretics and other management. - Patient Problems (1) Acute on chronic HFrEF (heart failure with reduced ejection fraction) Current Visit: Yes Status: Acute (2) Cardiac resynchronization therapy defibrillator (COUNTY ENGINEER-D) in place Current Visit: Yes Status: Chronic (3) Ischemic cardiomyopathy Current Visit: Yes Status: Chronic (4) CAD (coronary artery disease) Current Visit: Yes Status: Chronic Qualifiers: Coronary Disease-Associated Artery/Lesion type: [place] artery (5) History of coronary artery stent placement Current Visit: Yes Status: Chronic (6) Severe mitral regurgitation Current Visit: Yes Status: Chronic (7) Pulmonary hypertension Current Visit: Yes Status: Chronic (8) Diabetes Current Visit: Yes Status: Chronic (9) Thrombocytopenia Current Visit: Yes Status: Acute Subjective Date of service: 11/04/18 Principal diagnosis: Acute on chronic HFrEF, Ischemic CMP, COUNTY ENGINEER/ICD, CAD s/p PCI, Severe MR Interval history: He is less short of breath this morning. Objective Vital Signs Temp Pulse Resp BP Pulse Ox 11/04/18 10:37 97 11/04/18 09:08 83 101/73 11/04/18 09:07 83 101/73 11/04/18 07:55 97.4 F L 83 14 101/73 99 11/04/18 03:53 97.3 F L 85 18 94/67 100 11/03/18 23:24 98.6 F 90 20 82/49 89 11/03/18 22:08 110 H 103/63 11/03/18 22:00 90 11/03/18 20:16 99 11/03/18 19:57 98.1 F 110 H 18 103/63 92 11/03/18 16:11 98.3 F 99 H 18 90/60 96 - Physical Examination General: No Apparent Distress HEENT: Positive: Normocephaly Neck: Positive: neck supple, trachea midline, JVD/HJR Cardiac: Positive: Reg Rate and Rhythm, S1/S2 Lungs: Positive: Rales (few basal rales) Neuro: Positive: Grossly Intact Abdomen: Positive: Soft, Active Bowel Sounds. Negative: Tender Skin: Positive: Clear Musculoskeletal: Normal Range of Motion Extremities: Present: +2 Edema (pitting bilateral leg edema) - Labs and Meds CBC 11/04/18 Range/Units 05:55 WBC 4.4 L (4.5-11.0) K/mm3 RBC 4.10 (3.65-5.03) M/mm3 Hgb 11.6 L (11.8-15.2) gm/dl Hct 35.1 L (35.5-45.6) % Plt Count 94 L (140-440) K/mm3 Comprehensive Metabolic Panel 11/04/18 Range/Units 05:55 Sodium 138 (137-145) mmol/L Potassium 4.0 (3.6-5.0) mmol/L Chloride 101.6 (98-107) mmol/L Carbon Dioxide 24 (22-30) mmol/L BUN 27 H (9-20) mg/dL Creatinine 1.2 (0.8-1.5) mg/dL Glucose 134 H (75-100) mg/dL Calcium 8.6 (8.4-10.2) mg/dL - Imaging and Cardiology Nuclear stress test: image reviewed Echo: report reviewed (03/2017: EF 20%, LV severely dilated, grade 3 diastolic dysfunction, severe MR) Cardiac cath: report reviewed (Successful PCI to LCx and RCA in 2004; successful PCI to D1) - Telemetry EKG Rhythm: Paced
[2018-11-04] MEDS: SINGULAIR PO SCH (18:21)
[2018-11-04 19:40] LABS: BUN/Creatinine Ratio 25; Blood Urea Nitrogen 28 mg/dL (9-20); Calcium 8.3 mg/dL (8.4-10.2); Hemolysis Index 15
[2018-11-04] MEDS: PRAVACHOL PO SCH (21:34)
[2018-11-04] MEDS: LOVENOX SUB-Q SCH (21:34)
[2018-11-05] MEDS: BUMEX IV SCH (05:47)
[2018-11-05] MEDS: HumaLOG SUB-Q SCH ×3 (09:09→22:25)
[2018-11-05] MEDS: GLUCOPHAGE XR PO SCH (09:09)
[2018-11-05] MEDS: K-DUR PO SCH (09:10)
[2018-11-05] MEDS: COREG PO SCH ×2 (09:11→22:20)
[2018-11-05] MEDS: COLACE PO SCH ×2 (09:11→22:20)
[2018-11-05] MEDS: TRIPLE ANTIBIOTIC TP SCH ×2 (09:13→22:27)
[2018-11-05] MEDS: ZAROXOLYN PO SCH (09:14)
[2018-11-05] MEDS: ZESTRIL PO SCH (10:59)
[2018-11-05] MEDS ORDERED: MAGNESIUM SULFATE 2GM/50ML 2 GM/50 ML BAG IV ONE (11:00)
--- NOTE | 2018-11-05 11:24 | XRay Report ---
RIGHT KNEE 2 VIEWS INDICATION / CLINICAL INFORMATION: Pain right knee COMPARISON: None available. FINDINGS: BONES / JOINT(S): There is moderate spurring at the insertion of the quadriceps tendon on the superio r pole of the patella. There are minimal tricompartmental degenerative changes involving the knee. I see no evidence of fracture, dislocation, destructive lesion or joint effusion. SOFT TISSUES: There are moderately severe atherosclerotic calcifications. ADDITIONAL FINDINGS: None. IMPRESSION: Atherosclerosis and mild degenerative change. No acute osseous abnormality. Signer Name: Joey Bergeron MD Signed: 11/05/2018 11:19 AM Workstation Name: [id number]
--- NOTE | 2018-11-05 12:53 | Progress Note ---
Assessment and Plan Continue IV diuretics and other management. Schedule abdominal ultrasound. - Patient Problems (1) Acute on chronic HFrEF (heart failure with reduced ejection fraction) Current Visit: Yes Status: Acute (2) Cardiac resynchronization therapy defibrillator (SOAP TENDER-D) in place Current Visit: Yes Status: Chronic (3) Ischemic cardiomyopathy Current Visit: Yes Status: Chronic (4) CAD (coronary artery disease) Current Visit: Yes Status: Chronic Qualifiers: Coronary Disease-Associated Artery/Lesion type: [place] artery (5) History of coronary artery stent placement Current Visit: Yes Status: Chronic (6) Severe mitral regurgitation Current Visit: Yes Status: Chronic (7) Pulmonary hypertension Current Visit: Yes Status: Chronic (8) Diabetes Current Visit: Yes Status: Chronic (9) Thrombocytopenia Current Visit: Yes Status: Acute Subjective Date of service: 11/05/18 Principal diagnosis: Acute on chronic HFrEF, Ischemic CMP, SOAP TENDER/ICD, CAD s/p PCI, Severe MR Interval history: The patient expressed concern about his abdominal distention. He showed me a video clip of himself dancing sometime last year when he did not have any abdominal distention. Objective Vital Signs Temp Pulse Resp BP Pulse Ox 11/05/18 11:45 98.0 F 86 16 89/70 100 11/05/18 10:59 87 100/69 11/05/18 09:59 99 11/05/18 09:11 87 100/69 11/05/18 07:47 97.9 F 87 18 100/69 100 11/05/18 04:06 97.5 F L 89 18 92/66 98 11/04/18 23:33 98.6 F 110 H 18 98/68 99 11/04/18 21:34 91 H 104/73 11/04/18 20:50 93 H 11/04/18 19:55 98.2 F 97 H 20 103/75 98 11/04/18 18:18 98.0 F 91 H 16 104/73 97 - Physical Examination General: No Apparent Distress HEENT: Positive: EOMI, Normocephaly, Mucus Membranes Moist Neck: Positive: neck supple, trachea midline, JVD/HJR Cardiac: Positive: Reg Rate and Rhythm, S1/S2 Lungs: Positive: clear to auscultation Neuro: Positive: Grossly Intact Abdomen: Positive: Soft, Active Bowel Sounds, Distended. Negative: Tender Skin: Positive: Clear. Negative: Rash Musculoskeletal: Normal Range of Motion Extremities: Present: +2 Edema (pitting bilateral leg edema) - Labs and Meds Comprehensive Metabolic Panel 11/04/18 Range/Units 18:35 Sodium 137 (137-145) mmol/L Potassium 4.3 (3.6-5.0) mmol/L Chloride 100.8 (98-107) mmol/L Carbon Dioxide 22 (22-30) mmol/L BUN 28 H (9-20) mg/dL Creatinine 1.1 (0.8-1.5) mg/dL Glucose 115 H (75-100) mg/dL Calcium 8.3 L (8.4-10.2) mg/dL - Imaging and Cardiology EKG: image reviewed (ventricular paced) Echo: report reviewed (03/2017: EF 20%, LV severely dilated, grade 3 diastolic dysfunction, severe MR) Cardiac cath: report reviewed (Successful PCI to LCx and RCA in 2004; successful PCI to D1) - Telemetry EKG Rhythm: Sinus Tachycardia
[2018-11-05] MEDS: LANOXIN PO SCH ×2 (14:13→21:33)
--- NOTE | 2018-11-05 17:34 | Ultrasound Report ---
Limited abdominal ultrasound INDICATION: Evaluate ascites FINDINGS: Large amount of ascites is identified in the abdomen. Fluid is seen in all 4 quadrants. Signer Name: Devin Miles MD Signed: 11/05/2018 5:30 PM Workstation Name: [id number]
--- NOTE | 2018-11-05 17:57 | Progress Note ---
Assessment and Plan Assessment and plan: Acute on chronic HFrEF. Cardiology following. S/p dobutamine gtt. BLE edema persists and pt with c/o increasing abdominal swelling. Continue IV Bumex 1 mg twice a day and metolazone. Continue low-dose beta erika as tolerated Ischemic cardiomyopathy. As above. Pulmonary hypertension. Acute hypoxic respiratory failure. Etiology secondary to above. Continue to treat underlying causes. AICD in situ. History of coronary artery disease. Diabetes mellitus type 2. Continue Accu-Cheks and sliding scale. Severe mitral regurgitation. Gross ascitis seen on US Abd today. may do paracentesis in am Disposition. patient feels better. Get PT eval. Check Oxygen sat on RA. Hopefully discharge home soon in 1-2 days. History Interval history: Less shortness of breath No chest pain Abdominal distension Hospitalist Physical - Physical exam Narrative exam: Gen: Not in acute distress, lying in bed, HEENT: Normocephalic, atraumatic Neck: supple, no JVD Heart: S1 and S2 reg, no murmurs, rubs or gallop Lungs: Clear, no crackles or wheeze Abd: soft, non tender, mild distension, normal BS Ext: Bilateral leg edema, no clubbing, no cyanosis Neuro:awake,alert, Oriented X 3. No focal signs Psych: Normal mood - Constitutional Vitals: Temp Pulse Resp BP Pulse Ox 97.9 F 64 18 114/70 86 11/05/18 15:51 11/05/18 15:51 11/05/18 15:51 11/05/18 15:51 11/05/18 15:51 General appearance: Present: no acute distress, well-nourished Results - Labs CBC & Chem 7: 11/04/18 05:55 11/04/18 18:35 Labs: Laboratory Last Values WBC 4.4 K/mm3 (4.5-11.0) L 11/04/18 05:55 RBC 4.10 M/mm3 (3.65-5.03) 11/04/18 05:55 Hgb 11.6 gm/dl (11.8-15.2) L 11/04/18 05:55 Hct 35.1 % (35.5-45.6) L 11/04/18 05:55 MCV 86 fl (84-94) 11/04/18 05:55 MCH 28 pg (28-32) 11/04/18 05:55 MCHC 33 % (32-34) 11/04/18 05:55 RDW 20.9 % (13.2-15.2) H 11/04/18 05:55 Plt Count 94 K/mm3 (140-440) L 11/04/18 05:55 [place] % (Auto) Electrician'S Helper 11/04/18 05:55 Add Manual Diff Complete 11/04/18 05:55 Total Counted 100 11/04/18 05:55 Seg Neuts % (Manual) 67.0 % (40.0-70.0) 11/04/18 05:55 0 % 11/04/18 05:55 16.0 % (13.4-35.0) 11/04/18 05:55 Reactive Lymphs % (Man) 0 % 11/04/18 05:55 17.0 % (0.0-7.3) H 11/04/18 05:55 0 % (0.0-4.3) 11/04/18 05:55 0 % (0.0-1.8) 11/04/18 05:55 0 % 11/04/18 05:55 0 % 11/04/18 05:55 0 % 11/04/18 05:55 0 % 11/04/18 05:55 Nucleated RBC % Not Reportable 11/04/18 05:55 Seg Neutrophils # Man 2.9 K/mm3 (1.8-7.7) 11/04/18 05:55 Band Neutrophils # 0.0 K/mm3 11/04/18 05:55 0.7 K/mm3 (1.2-5.4) L 11/04/18 05:55 Abs React Lymphs (Man) 0.0 K/mm3 11/04/18 05:55 0.7 K/mm3 (0.0-0.8) 11/04/18 05:55 0.0 K/mm3 (0.0-0.4) 11/04/18 05:55 0.0 K/mm3 (0.0-0.1) 11/04/18 05:55 0.0 K/mm3 11/04/18 05:55 0.0 K/mm3 11/04/18 05:55 0.0 K/mm3 11/04/18 05:55 Blast Cells # 0.0 K/mm3 11/04/18 05:55 WBC Morphology Not Reportable 11/04/18 05:55 WBC Morphology TNR 11/04/18 05:55 Hypersegmented Neuts Not Reportable 11/04/18 05:55 Hyposegmented Neuts Not Reportable 11/04/18 05:55 Hypogranular Neuts Not Reportable 11/04/18 05:55 Not Reportable 11/04/18 05:55 Not Reportable 11/04/18 05:55 Not Reportable 11/04/18 05:55 Not Reportable 11/04/18 05:55 Not Reportable 11/04/18 05:55 Not Reportable 11/04/18 05:55 Consistent w auto 11/04/18 05:55 Not Reportable 11/04/18 05:55 Plt Clumps, EDTA Not Reportable 11/04/18 05:55 Not Reportable 11/04/18 05:55 Not Reportable 11/04/18 05:55 Not Reportable 11/04/18 05:55 Plt Morphology Comment Not Reportable 11/04/18 05:55 RBC Morphology Not Reportable 11/04/18 05:55 Dimorphic RBCs Not Reportable 11/04/18 05:55 Few 11/04/18 05:55 1+ 11/04/18 05:55 Not Reportable 11/04/18 05:55 1+ 11/04/18 05:55 Not Reportable 11/04/18 05:55 Not Reportable 11/04/18 05:55 Not Reportable 11/04/18 05:55 Not Reportable 11/04/18 05:55 Not Reportable 11/04/18 05:55 Not Reportable 11/04/18 05:55 Not Reportable 11/04/18 05:55 Not Reportable 11/04/18 05:55 Not Reportable 11/04/18 05:55 Not Reportable 11/04/18 05:55 Not Reportable 11/04/18 05:55 Not Reportable 11/04/18 05:55 Not Reportable 11/04/18 05:55 Not Reportable 11/04/18 05:55 Not Reportable 11/04/18 05:55 Acanthocytes (Spur) Not Reportable 11/04/18 05:55 Rouleaux Not Reportable 11/04/18 05:55 Not Reportable 11/04/18 05:55 Not Reportable 11/04/18 05:55 Not Reportable 11/04/18 05:55 Not Reportable 11/04/18 05:55 Hem Pathologist Commnt No 11/04/18 05:55 PT 16.4 Sec. (12.2-14.9) H 10/24/18 17:58 INR 1.36 (0.87-1.13) H 10/24/18 17:58 APTT 31.9 Sec. (24.2-36.6) 10/24/18 17:58 Sodium 137 mmol/L (137-145) 11/04/18 18:35 Potassium 4.3 mmol/L (3.6-5.0) 11/04/18 18:35 Chloride 100.8 mmol/L (98-107) 11/04/18 18:35 Carbon Dioxide 22 mmol/L (22-30) 11/04/18 18:35 19 mmol/L 11/04/18 18:35 BUN 28 mg/dL (9-20) H 11/04/18 18:35 1.1 mg/dL (0.8-1.5) 11/04/18 18:35 Estimated GFR > 60 ml/min 11/04/18 18:35 25 % 11/04/18 18:35 Glucose 115 mg/dL (75-100) H 11/04/18 18:35 POC Glucose 184 (70-105) H 11/05/18 15:52 8.6 % (4-6) H 10/26/18 04:38 Calcium 8.3 mg/dL (8.4-10.2) L 11/04/18 18:35 Phosphorus 3.10 mg/dL (2.5-4.5) 10/29/18 05:49 Magnesium 1.70 mg/dL (1.7-2.3) 11/04/18 18:35 1.40 mg/dL (0.1-1.2) H 10/24/18 17:58 AST 19 units/L (5-40) 10/24/18 17:58 ALT 8 units/L (7-56) 10/24/18 17:58 133 units/L (35-129) H 10/24/18 17:58 0.014 ng/mL (0.00-0.029) 10/24/18 17:58 NT-Pro-B Natriuret Pep 6211 pg/mL (0-900) H 10/24/18 17:58 7.1 g/dL (6.3-8.2) 10/24/18 17:58 3.1 g/dL (3.9-5) L 10/24/18 17:58 0.8 % 10/24/18 17:58 29 units/L (13-60) 10/24/18 17:58 Yellow (Yellow) 10/24/18 22:17 Clear (Clear) 10/24/18 22:17 5.0 (5.0-7.0) 10/24/18 22:17 Ur Specific [place] 1.011 (1.003-1.030) 10/24/18 22:17 <15 mg/dl mg/dL (Negative) 10/24/18 22:17 Neg mg/dL (Negative) 10/24/18 22:17 Neg mg/dL (Negative) 10/24/18 22:17 Sm (Negative) 10/24/18 22:17 Neg (Negative) 10/24/18 22:17 Neg (Negative) 10/24/18 22:17 4.0 mg/dL (<2.0) 10/24/18 22:17 Ur Leukocyte Esterase Neg (Negative) 10/24/18 22:17 1.0 /HPF (0.0-6.0) 10/24/18 22:17 2.0 /HPF (0.0-6.0) 10/24/18 22:17 Few /HPF 10/24/18 22:17 Active Medications - Current Medications Current Medications: Generic Name Dose Route Start Last Admin Trade Name Freq PRN Reason Stop Dose Admin Bumetanide 1 mg 10/31/18 11:15 11/05/18 05:47 Bumex IV 1 mg BID@0600,1800 NORRIS Administration Carvedilol 3.125 mg 10/25/18 22:00 11/05/18 09:11 Coreg PO Not Given BID NORRIS Digoxin 0.25 mg 11/05/18 13:00 11/05/18 14:13 Lanoxin PO 11/06/18 07:01 0.25 mg Q6H NORRIS Administration Docusate Sodium 100 mg 07/06/19 12:00 11/05/18 09:11 Colace PO 100 mg BID NORRIS Administration Enoxaparin Sodium 40 mg 10/25/18 22:00 11/04/18 21:34 Lovenox SUB-Q 40 mg QDAY@2200 NORRIS Administration Insulin Human Lispro 0 unit 10/25/18 11:30 11/05/18 12:28 Humalog SUB-Q Not Given ACHS [facility] Protocol Lisinopril 2.5 mg 11/05/18 10:00 11/05/18 10:59 Zestril PO Not Given QDAY NORRIS Metformin HCl 750 mg 10/26/18 08:00 11/05/18 09:09 Glucophage Xr PO 750 mg QDDIAB [facility]RIS Administration Methocarbamol 500 mg 10/25/18 18:06 Robaxin PO Q8HR PRN Muscle Spasm Metolazone 2.5 mg 10/28/18 18:30 11/05/18 09:14 Zaroxolyn PO 2.5 mg QDAY [facility]RIS Administration Montelukast Sodium 10 mg 10/25/18 18:00 11/04/18 18:21 Singulair PO 10 mg QPM NORRIS Administration Neomycin/Polymyxin/Bacitracin 1 applic 10/25/18 12:00 11/05/18 09:13 Triple Antibiotic TP Not Given BID [facility] Pravastatin Sodium 40 mg 10/25/18 22:00 11/04/18 21:34 Pravachol PO 40 mg QHS NORRIS Administration Nutrition/Malnutrition Assess - Dietary Evaluation Nutrition/Malnutrition Findings: Nutrition Notes Start: 10/31/18 17:15 Freq: Status: Active Protocol: Document 10/31/18 17:15 RM (Rec: 10/31/18 17:15 [id number]) Nutrition Notes Need for Assessment generated from: LOS Initial or Follow up Brief Note Height 5 ft 10 in Weight 90.5 kg [place] Body Weight (kg) 75.45 BMI 28.6 Subjective/Other Information Screened for LOS. Recorded PO intake 85% X 2 days. Nutrition Intervention Revisit per MD consult or patient Sign Off request:
[2018-11-05] MEDS: PRAVACHOL PO SCH (22:20)
[2018-11-05] MEDS: LOVENOX SUB-Q SCH (22:20)
[2018-11-06] MEDS: LANOXIN PO SCH ×3 (01:45→17:21)
[2018-11-06] MEDS: BUMEX IV SCH ×3 (05:58→21:20)
[2018-11-06] MEDS: HumaLOG SUB-Q SCH ×5 (07:30→22:26)
[2018-11-06] MEDS: GLUCOPHAGE XR PO SCH (08:26)
[2018-11-06] MEDS: COLACE PO SCH ×2 (09:56→22:25)
[2018-11-06] MEDS: ZAROXOLYN PO SCH (10:00)
[2018-11-06] MEDS: TRIPLE ANTIBIOTIC TP SCH ×2 (10:00→22:27)
[2018-11-06] MEDS: COREG PO SCH ×2 (10:11→22:25)
[2018-11-06] MEDS: ZESTRIL PO SCH (10:12)
--- NOTE | 2018-11-06 10:18 | Progress Note ---
Assessment and Plan Assessment and plan: Acute on chronic HFrEF. Cardiology following. S/p dobutamine gtt. BLE edema persists and pt with c/o increasing abdominal swelling. Continue IV Bumex 1 mg twice a day and metolazone. Continue low-dose beta erika as tolerated Ischemic cardiomyopathy. As above. Pulmonary hypertension. Acute hypoxic respiratory failure. Etiology secondary to above. Continue to treat underlying causes. AICD in situ. History of coronary artery disease. Diabetes mellitus type 2. Continue Accu-Cheks and sliding scale. Severe mitral regurgitation. Gross ascitis seen on US Abd today. US guided paracentesis ordered. I discussed with patient History Interval history: Less shortness of breath No chest pain Abdominal distension right knee pain, improved Hospitalist Physical - Physical exam Narrative exam: Gen: Not in acute distress, lying in bed, HEENT: Normocephalic, atraumatic Neck: supple, no JVD Heart: S1 and S2 reg, no murmurs, rubs or gallop Lungs: Clear, no crackles or wheeze Abd: soft, non tender, mild distension, normal BS Ext: Bilateral leg edema, no clubbing, no cyanosis Neuro:awake,alert, Oriented X 3. No focal signs Psych: Normal mood - Constitutional Vitals: Temp Pulse Resp BP Pulse Ox 79.3 F L 110 H 20 102/52 100 11/06/18 07:22 11/06/18 10:12 11/06/18 07:22 11/06/18 10:12 11/06/18 07:22 General appearance: Present: no acute distress, well-nourished Results - Labs CBC & Chem 7: 11/04/18 05:55 11/06/18 08:03 Labs: Laboratory Last Values WBC 4.4 K/mm3 (4.5-11.0) L 11/04/18 05:55 RBC 4.10 M/mm3 (3.65-5.03) 11/04/18 05:55 Hgb 11.6 gm/dl (11.8-15.2) L 11/04/18 05:55 Hct 35.1 % (35.5-45.6) L 11/04/18 05:55 MCV 86 fl (84-94) 11/04/18 05:55 MCH 28 pg (28-32) 11/04/18 05:55 MCHC 33 % (32-34) 11/04/18 05:55 RDW 20.9 % (13.2-15.2) H 11/04/18 05:55 Plt Count 94 K/mm3 (140-440) L 11/04/18 05:55 [place] % (Auto) Commissioned Sales Associate 11/04/18 05:55 Add Manual Diff Complete 11/04/18 05:55 Total Counted 100 11/04/18 05:55 Seg Neuts % (Manual) 67.0 % (40.0-70.0) 11/04/18 05:55 0 % 11/04/18 05:55 16.0 % (13.4-35.0) 11/04/18 05:55 Reactive Lymphs % (Man) 0 % 11/04/18 05:55 17.0 % (0.0-7.3) H 11/04/18 05:55 0 % (0.0-4.3) 11/04/18 05:55 0 % (0.0-1.8) 11/04/18 05:55 0 % 11/04/18 05:55 0 % 11/04/18 05:55 0 % 11/04/18 05:55 0 % 11/04/18 05:55 Nucleated RBC % Not Reportable 11/04/18 05:55 Seg Neutrophils # Man 2.9 K/mm3 (1.8-7.7) 11/04/18 05:55 Band Neutrophils # 0.0 K/mm3 11/04/18 05:55 0.7 K/mm3 (1.2-5.4) L 11/04/18 05:55 Abs React Lymphs (Man) 0.0 K/mm3 11/04/18 05:55 0.7 K/mm3 (0.0-0.8) 11/04/18 05:55 0.0 K/mm3 (0.0-0.4) 11/04/18 05:55 0.0 K/mm3 (0.0-0.1) 11/04/18 05:55 0.0 K/mm3 11/04/18 05:55 0.0 K/mm3 11/04/18 05:55 0.0 K/mm3 11/04/18 05:55 Blast Cells # 0.0 K/mm3 11/04/18 05:55 WBC Morphology Not Reportable 11/04/18 05:55 WBC Morphology TNR 11/04/18 05:55 Hypersegmented Neuts Not Reportable 11/04/18 05:55 Hyposegmented Neuts Not Reportable 11/04/18 05:55 Hypogranular Neuts Not Reportable 11/04/18 05:55 Not Reportable 11/04/18 05:55 Not Reportable 11/04/18 05:55 Not Reportable 11/04/18 05:55 Not Reportable 11/04/18 05:55 Not Reportable 11/04/18 05:55 Not Reportable 11/04/18 05:55 Consistent w auto 11/04/18 05:55 Not Reportable 11/04/18 05:55 Plt Clumps, EDTA Not Reportable 11/04/18 05:55 Not Reportable 11/04/18 05:55 Not Reportable 11/04/18 05:55 Not Reportable 11/04/18 05:55 Plt Morphology Comment Not Reportable 11/04/18 05:55 RBC Morphology Not Reportable 11/04/18 05:55 Dimorphic RBCs Not Reportable 11/04/18 05:55 Few 11/04/18 05:55 1+ 11/04/18 05:55 Not Reportable 11/04/18 05:55 1+ 11/04/18 05:55 Not Reportable 11/04/18 05:55 Not Reportable 11/04/18 05:55 Not Reportable 11/04/18 05:55 Not Reportable 11/04/18 05:55 Not Reportable 11/04/18 05:55 Not Reportable 11/04/18 05:55 Not Reportable 11/04/18 05:55 Not Reportable 11/04/18 05:55 Not Reportable 11/04/18 05:55 Not Reportable 11/04/18 05:55 Not Reportable 11/04/18 05:55 Not Reportable 11/04/18 05:55 Not Reportable 11/04/18 05:55 Not Reportable 11/04/18 05:55 Not Reportable 11/04/18 05:55 Acanthocytes (Spur) Not Reportable 11/04/18 05:55 Rouleaux Not Reportable 11/04/18 05:55 Not Reportable 11/04/18 05:55 Not Reportable 11/04/18 05:55 Not Reportable 11/04/18 05:55 Not Reportable 11/04/18 05:55 Hem Pathologist Commnt No 11/04/18 05:55 PT 16.4 Sec. (12.2-14.9) H 10/24/18 17:58 INR 1.36 (0.87-1.13) H 10/24/18 17:58 APTT 31.9 Sec. (24.2-36.6) 10/24/18 17:58 Sodium 137 mmol/L (137-145) 11/04/18 18:35 Potassium 4.3 mmol/L (3.6-5.0) 11/04/18 18:35 Chloride 100.8 mmol/L (98-107) 11/04/18 18:35 Carbon Dioxide 22 mmol/L (22-30) 11/04/18 18:35 19 mmol/L 11/04/18 18:35 BUN 28 mg/dL (9-20) H 11/04/18 18:35 1.1 mg/dL (0.8-1.5) 11/04/18 18:35 Estimated GFR > 60 ml/min 11/04/18 18:35 25 % 11/04/18 18:35 Glucose 115 mg/dL (75-100) H 11/04/18 18:35 POC Glucose 134 (70-105) H 11/06/18 07:42 8.6 % (4-6) H 10/26/18 04:38 Calcium 8.3 mg/dL (8.4-10.2) L 11/04/18 18:35 Phosphorus 3.10 mg/dL (2.5-4.5) 10/29/18 05:49 Magnesium 1.70 mg/dL (1.7-2.3) 11/04/18 18:35 1.40 mg/dL (0.1-1.2) H 10/24/18 17:58 AST 19 units/L (5-40) 10/24/18 17:58 ALT 8 units/L (7-56) 10/24/18 17:58 133 units/L (35-129) H 10/24/18 17:58 0.014 ng/mL (0.00-0.029) 10/24/18 17:58 NT-Pro-B Natriuret Pep 6211 pg/mL (0-900) H 10/24/18 17:58 7.1 g/dL (6.3-8.2) 10/24/18 17:58 3.1 g/dL (3.9-5) L 10/24/18 17:58 0.8 % 10/24/18 17:58 29 units/L (13-60) 10/24/18 17:58 Yellow (Yellow) 10/24/18 22:17 Clear (Clear) 10/24/18 22:17 5.0 (5.0-7.0) 10/24/18 22:17 Ur Specific [place] 1.011 (1.003-1.030) 10/24/18 22:17 <15 mg/dl mg/dL (Negative) 10/24/18 22:17 Neg mg/dL (Negative) 10/24/18 22:17 Neg mg/dL (Negative) 10/24/18 22:17 Sm (Negative) 10/24/18 22:17 Neg (Negative) 10/24/18 22:17 Neg (Negative) 10/24/18 22:17 4.0 mg/dL (<2.0) 10/24/18 22:17 Ur Leukocyte Esterase Neg (Negative) 10/24/18 22:17 1.0 /HPF (0.0-6.0) 10/24/18 22:17 2.0 /HPF (0.0-6.0) 10/24/18 22:17 Few /HPF 10/24/18 22:17 Active Medications - Current Medications Current Medications: Generic Name Dose Route Start Last Admin Trade Name Eddie PRN Reason Stop Dose Admin Bumetanide 1 mg 10/31/18 11:15 11/06/18 05:58 Bumex IV 1 mg BID@0600,1800 NORRIS Administration Carvedilol 3.125 mg 10/25/18 22:00 11/06/18 10:11 Coreg PO 3.125 mg BID NORRIS Administration Docusate Sodium 100 mg 10/25/18 12:00 11/06/18 09:56 Colace PO Not Given BID [facility] Insulin Human Lispro 0 unit 10/25/18 11:30 11/06/18 07:30 Humalog SUB-Q Not Given ACHS NORRIS Protocol Lisinopril 2.5 mg 11/05/18 10:00 11/06/18 10:12 Zestril PO 2.5 mg QDAY NORRIS Administration Metformin HCl 750 mg 10/26/18 08:00 11/06/18 08:26 Glucophage Xr PO 750 mg QDDIAB NORRIS Administration Methocarbamol 500 mg 10/25/18 18:06 Robaxin PO Q8HR PRN Muscle Spasm Metolazone 2.5 mg 10/28/18 18:30 11/06/18 10:00 Zaroxolyn PO 2.5 mg QDAY NORRIS Administration Montelukast Sodium 10 mg 10/25/18 18:00 11/04/18 18:21 Singulair PO 10 mg QPM NORRIS Administration Neomycin/Polymyxin/Bacitracin 1 applic 10/25/18 12:00 11/06/18 10:00 Triple Antibiotic TP 1 applic BID NORRIS Administration Pravastatin Sodium 40 mg 10/25/18 22:00 11/05/18 22:20 Pravachol PO 40 mg QHS NORRIS Administration Nutrition/Malnutrition Assess - Dietary Evaluation Nutrition/Malnutrition Findings: Nutrition Notes Start: 10/31/18 17:15 Freq: Status: Active Protocol: Document 10/31/18 17:15 RM (Rec: 10/31/18 17:15 RM [id number]) Nutrition Notes Need for Assessment generated from: LOS Initial or Follow up Brief Note Height 5 ft 10 in Weight 90.5 kg [place] Body Weight (kg) 75.45 BMI 28.6 Subjective/Other Information Screened for LOS. Recorded PO intake 85% X 2 days. Nutrition Intervention Revisit per MD consult or patient Sign Off request:
[2018-11-06 11:08] LABS: Alanine Aminotransferase 5 units/L (7-56); Albumin 3.1 g/dL (3.9-5); BUN/Creatinine Ratio 26; Blood Urea Nitrogen 29 mg/dL (9-20); Calcium 8.8 mg/dL (8.4-10.2); Hemolysis Index 0
--- NOTE | 2018-11-06 11:49 | Progress Note ---
Assessment and Plan Consider GI consultation for management of ascites. - Patient Problems (1) Acute on chronic HFrEF (heart failure with reduced ejection fraction) Current Visit: Yes Status: Acute (2) Cardiac resynchronization therapy defibrillator (CARCASS SPLITTER-D) in place Current Visit: Yes Status: Chronic (3) Ischemic cardiomyopathy Current Visit: Yes Status: Chronic (4) CAD (coronary artery disease) Current Visit: Yes Status: Chronic Qualifiers: Coronary Disease-Associated Artery/Lesion type: [place] artery (5) History of coronary artery stent placement Current Visit: Yes Status: Chronic (6) Severe mitral regurgitation Current Visit: Yes Status: Chronic (7) Pulmonary hypertension Current Visit: Yes Status: Chronic (8) Ascites Current Visit: Yes Status: Acute (9) Thrombocytopenia Current Visit: Yes Status: Acute (10) Diabetes Current Visit: Yes Status: Chronic Subjective Date of service: 11/06/18 Principal diagnosis: Acute on chronic HFrEF, Ischemic CMP, CARCASS SPLITTER/ICD, CAD s/p PCI, Severe MR Interval history: No new complaint. I discussed abdominal ultrasound findings with the patient which showed ascites. Objective Vital Signs Temp Pulse Resp BP Pulse Ox 11/06/18 10:12 110 H 102/52 11/06/18 10:11 110 H 102/52 11/06/18 10:00 109 H 11/06/18 07:22 79.3 F L 105 H 20 97/75 100 11/06/18 03:23 97.5 F L 87 20 95/63 92 11/06/18 01:45 87 101/72 11/05/18 23:26 98.4 F 87 20 94/67 91 11/05/18 22:20 85 102/70 11/05/18 22:00 87 99 11/05/18 19:58 98.1 F 73 19 102/70 99 11/05/18 15:51 97.9 F 64 18 114/70 86 11/05/18 14:13 86 89/70 - Physical Examination General: No Apparent Distress HEENT: Positive: EOMI, Normocephaly, Mucus Membranes Moist Neck: Positive: neck supple, trachea midline, JVD/HJR Cardiac: Positive: Reg Rate and Rhythm, S1/S2 Lungs: Positive: clear to auscultation Neuro: Positive: Grossly Intact Abdomen: Positive: Soft, Active Bowel Sounds, Distended. Negative: Tender Skin: Positive: Clear. Negative: Rash Musculoskeletal: Normal Range of Motion Extremities: Present: +2 Edema (pitting bilateral leg edema) - Labs and Meds Cardiac Enzymes 11/06/18 Range/Units 08:03 AST 15 (5-40) units/L Comprehensive Metabolic Panel 11/06/18 Range/Units 08:03 Sodium 139 (137-145) mmol/L Potassium 4.0 (3.6-5.0) mmol/L Chloride 99.2 (98-107) mmol/L Carbon Dioxide 25 (22-30) mmol/L BUN 29 H (9-20) mg/dL Creatinine 1.1 (0.8-1.5) mg/dL Glucose 123 H (75-100) mg/dL Calcium 8.8 (8.4-10.2) mg/dL AST 15 (5-40) units/L ALT 5 L (7-56) units/L Alkaline Phosphatase 141 H (35-129) units/L Total Protein 6.7 (6.3-8.2) g/dL Albumin 3.1 L (3.9-5) g/dL - Imaging and Cardiology EKG: image reviewed (ventricular paced) Echo: report reviewed (03/2017: EF 20%, LV severely dilated, grade 3 diastolic dysfunction, severe MR) Cardiac cath: report reviewed (Successful PCI to LCx and RCA in 2004; successful PCI to D1) Pacemaker: ventricular pacing w/capt
[2018-11-06] MEDS: SINGULAIR PO SCH ×2 (17:09→21:20)
[2018-11-06 17:16] LABS: INR 1.37 (0.87-1.13)
[2018-11-06 17:17] LABS: Partial Thromboplastin Time 58.1 Sec. (24.2-36.6)
[2018-11-06 20:44] LABS: Hepatitis A Antibody IgM Non-Reactive (NonReactive); Hepatitis B Core IgM Non-Reactive (NonReactive); Hepatitis C Virus Antibody Non-Reactive (NonReactive)
[2018-11-06 22:04] LABS: Hepatitis B Surface Antigen Non-Reactive (Negative)
[2018-11-06] MEDS: PRAVACHOL PO SCH (22:26)
[2018-11-07] MEDS: BUMEX IV SCH ×2 (06:07→18:01)
[2018-11-07] MEDS: HumaLOG SUB-Q SCH ×4 (09:01→21:29)
[2018-11-07] MEDS: GLUCOPHAGE XR PO SCH (09:02)
[2018-11-07] MEDS: COREG PO SCH ×2 (10:07→21:22)
[2018-11-07] MEDS: TRIPLE ANTIBIOTIC TP SCH ×2 (10:07→21:22)
[2018-11-07] MEDS: ZAROXOLYN PO SCH (10:07)
[2018-11-07] MEDS: COLACE PO SCH ×2 (10:07→21:21)
[2018-11-07] MEDS: ZESTRIL PO SCH (10:16)
--- NOTE | 2018-11-07 11:02 | Gastroenterology Consultation ---
History of Present Illness - Reason for Consult Consult date: 11/07/18 ascites Requesting physician: BLAS PINEDA - History of Present Illness Patient is a 63 y/o male with PMH of chronic HFrEf, ischemic cardiomyopathy, CAD s/p multiple stents (RCA & LCx in 2004, D1 in 2008), severe MR, hypertension, hyperlipidemia, diabetes, pulmonary hypertension and AICD in situ who presented to ED with c/o SOB, swelling in upper/lower extremities and abdomen, and wt gain. He was admitted and currently being treated for acute on chronic HFrEF, ischemic cardiomyopathy, pulmonary hypertension, and acute hypoxic respiratory failure. GI has been consulted for gross ascites seen on abd U/S. This morning patient was resting in bed w/o acute distress. Reports feeling better with abd distention now improving. Denies wt loss, fever, abd pain, N/V, jaundice, or signs of bleeding. Has no hx or Fhx of liver disease. Has a remote hx of heavy alcohol use but quit drinking ~10 yrs ago. No IV drug use. Past History Past Medical History: other (as per HPI) Past Surgical History: Other (AICD, coronary stents) Social history: denies: smoking (former smoker), alcohol abuse Medications and Allergies Allergies Allergy/AdvReac Type Severity Reaction Status Date / Time No Known Allergies Allergy Verified 10/24/18 17:00 Home Medications Medication Instructions Recorded Confirmed Last Taken Type methOCARBAMOL [Robaxin TAB] 500 mg PO Q8HR PRN #10 tablet 09/14/18 10/24/18 Unknown Rx Carvedilol [Coreg] 3.125 mg PO BID 10/24/18 10/24/18 1 Day Ago History ~10/23/18 Lisinopril [Zestril] 5 mg PO QDAY 10/24/18 10/24/18 1 Day Ago History ~10/23/18 Metformin HCl [Glucophage ER] 750 mg PO QDAY 10/24/18 10/24/18 1 Day Ago History ~10/23/18 Montelukast [Singulair] 10 mg PO QPM 10/24/18 10/24/18 1 Day Ago History ~10/23/18 Pravastatin [Pravachol] 40 mg PO QHS 10/24/18 10/24/18 1 Day Ago History ~10/23/18 Torsemide [Demadex] 40 mg PO QDAY 10/24/18 10/24/18 1 Day Ago History ~10/23/18 Active Meds: Active Medications Bumetanide (Bumex) 1 mg IV BID@0600,1800 [facility] Last Admin: 11/07/18 06:07 Dose: 1 mg Documented by: Carvedilol (Coreg) 3.125 mg PO BID [facility] Last Admin: 11/07/18 10:07 Dose: Not Given Documented by: Digoxin (Lanoxin) 0.125 mg PO DAILY@1700 [facility] Last Admin: 11/06/18 17:21 Dose: 0.125 mg Documented by: Docusate Sodium (Colace) 100 mg PO BID [facility] Last Admin: 11/07/18 10:07 Dose: 100 mg Documented by: Insulin Human Lispro (Humalog) 0 unit SUB-Q ACHS [facility]; Protocol Last Admin: 11/07/18 09:01 Dose: Not Given Documented by: Lisinopril (Zestril) 2.5 mg PO QDAY [facility] Last Admin: 11/07/18 10:16 Dose: Not Given Documented by: Metformin HCl (Glucophage Xr) 750 mg PO QDDIAB [facility] Last Admin: 11/07/18 09:02 Dose: Not Given Documented by: Methocarbamol (Robaxin) 500 mg PO Q8HR PRN PRN Reason: Muscle Spasm Metolazone (Zaroxolyn) 2.5 mg PO QDAY [facility] Last Admin: 11/07/18 10:07 Dose: 2.5 mg Documented by: Montelukast Sodium (Singulair) 10 mg PO QPM [facility] Last Admin: 11/06/18 21:20 Dose: Not Given Documented by: Neomycin/Polymyxin/Bacitracin (Triple Antibiotic) 1 applic TP BID [facility] Last Admin: 11/07/18 10:07 Dose: 1 applic Documented by: Pravastatin Sodium (Pravachol) 40 mg PO QHS [facility] Last Admin: 11/06/18 22:26 Dose: 40 mg Documented by: medications reviewed/updated as required Review of Systems - Review of Systems All systems: negative Gastrointestinal: other (abdominal distention), no nausea, no vomiting Exam - Constitutional Vital Signs: Temp Pulse Resp BP Pulse Ox 98.4 F 96 H 18 98/62 98 11/07/18 07:49 11/07/18 10:16 11/07/18 07:49 11/07/18 10:16 11/07/18 07:49 General appearance: no acute distress - Respiratory Respiratory effort: normal Respiratory: bilateral: diminished - Cardiovascular Rhythm: regular - Gastrointestinal General gastrointestinal: Present: soft, non-tender, distended (ascites), normal bowel sounds - Neurologic Neurological: alert and oriented x3 - Labs CBC & Chem 7: 11/04/18 05:55 11/06/18 08:03 Lab Results: Laboratory Results - last 24 hr 11/06/18 11/06/18 11/06/18 08:03 12:25 16:11 PT 16.5 H INR 1.37 H APTT 58.1 H Sodium 139 Potassium 4.0 Chloride 99.2 Carbon Dioxide 25 Anion Gap 19 BUN 29 H Creatinine 1.1 Estimated GFR > 60 BUN/Creatinine Ratio 26 Glucose 123 H POC Glucose 136 H Calcium 8.8 Total Bilirubin 2.00 H AST 15 ALT 5 L Alkaline Phosphatase 141 H Total Protein 6.7 Albumin 3.1 L Albumin/Globulin Ratio 0.9 Hepatitis A IgM Ab Hep Bs Antigen Hep B Core IgM Ab Hepatitis C Antibody 11/06/18 11/06/18 11/06/18 16:36 19:49 21:05 PT INR APTT Sodium Potassium Chloride Carbon Dioxide Anion Gap BUN Creatinine Estimated GFR BUN/Creatinine Ratio Glucose POC Glucose 98 110 H Calcium Total Bilirubin AST ALT Alkaline Phosphatase Total Protein Albumin Albumin/Globulin Ratio Hepatitis A IgM Ab Non-reactive Hep Bs Antigen Non-reactive Hep B Core IgM Ab Non-reactive Hepatitis C Antibody Non-reactive 11/07/18 08:00 PT INR APTT Sodium Potassium Chloride Carbon Dioxide Anion Gap BUN Creatinine Estimated GFR BUN/Creatinine Ratio Glucose POC Glucose 111 H Calcium Total Bilirubin AST ALT Alkaline Phosphatase Total Protein Albumin Albumin/Globulin Ratio Hepatitis A IgM Ab Hep Bs Antigen Hep B Core IgM Ab Hepatitis C Antibody Assessment and Plan 1.ascites -abd U/S showed large amount of ascites -LFTs- T.hugo 2.00, AST 15, ALT 5, alk [id number] -plt 94, INR 1.37 -etiology-likely congestive hepatopathy 2/2 heart failure -diagnostic/therapeutic paracentesis pending for today -acute hepatitis panel in am -start on aldactone and continue bumex per cardiology -fluid/sodium restriction -continue to trend labs and supportive care -will follow
--- NOTE | 2018-11-07 12:09 | Progress Note ---
Assessment and Plan Continue IV diurectics. Awaiting paracentesis. - Patient Problems (1) Acute on chronic HFrEF (heart failure with reduced ejection fraction) Current Visit: Yes Status: Acute (2) Cardiac resynchronization therapy defibrillator (STOCK SPECULATOR-D) in place Current Visit: Yes Status: Chronic (3) Ischemic cardiomyopathy Current Visit: Yes Status: Chronic (4) CAD (coronary artery disease) Current Visit: Yes Status: Chronic Qualifiers: Coronary Disease-Associated Artery/Lesion type: [place] artery (5) History of coronary artery stent placement Current Visit: Yes Status: Chronic (6) Severe mitral regurgitation Current Visit: Yes Status: Chronic (7) Pulmonary hypertension Current Visit: Yes Status: Chronic (8) Ascites Current Visit: Yes Status: Acute (9) Thrombocytopenia Current Visit: Yes Status: Acute (10) Diabetes Current Visit: Yes Status: Chronic Subjective Date of service: 11/07/18 Principal diagnosis: Acute on chronic HFrEF, Ischemic CMP, STOCK SPECULATOR/ICD, CAD s/p PCI, Severe MR Interval history: He claims that he feels better this am and breathing better. Objective Vital Signs Temp Pulse Pulse Pulse Pulse Pulse Pulse 11/07/18 11:54 97.9 F 87 11/07/18 10:16 96 H 11/07/18 10:07 96 H 11/07/18 10:00 70 70 70 70 70 11/07/18 07:49 98.4 F 87 11/07/18 04:28 98.1 F 101 H 11/06/18 23:39 98.3 F 87 11/06/18 22:25 73 11/06/18 22:00 94 H 11/06/18 19:30 98.1 F 73 11/06/18 19:27 11/06/18 17:22 11/06/18 17:21 94 H 11/06/18 15:06 11/06/18 12:58 98.3 F 49 L Pulse Resp BP Pulse Ox 11/07/18 11:54 18 97/63 100 11/07/18 10:16 98/62 11/07/18 10:07 98/62 11/07/18 10:00 70 21 98 11/07/18 07:49 18 103/63 98 11/07/18 04:28 18 88/50 99 11/06/18 23:39 18 99/67 96 11/06/18 22:25 102/75 11/06/18 22:00 20 99 11/06/18 19:30 18 102/75 96 11/06/18 19:27 99 11/06/18 17:22 99/57 11/06/18 17:21 99/57 11/06/18 15:06 99 11/06/18 12:58 18 95/66 99 - Physical Examination General: No Apparent Distress HEENT: Positive: EOMI, Normocephaly, Mucus Membranes Moist Neck: Positive: neck supple, trachea midline, JVD/HJR Cardiac: Positive: Reg Rate and Rhythm Lungs: Positive: clear to auscultation Neuro: Positive: Grossly Intact Abdomen: Positive: Soft, Active Bowel Sounds, Distended. Negative: Tender Skin: Positive: Clear. Negative: Rash Musculoskeletal: Normal Range of Motion Extremities: Present: +2 Edema (pitting bilateral leg edema) - Labs and Meds Coagulation 11/06/18 Range/Units 16:11 PT 16.5 H (12.2-14.9) Sec. INR 1.37 H (0.87-1.13) APTT 58.1 H (24.2-36.6) Sec. - Imaging and Cardiology EKG: image reviewed (ventricular paced) Echo: report reviewed (03/2017: EF 20%, LV severely dilated, grade 3 diastolic dysfunction, severe MR) Cardiac cath: report reviewed (Successful PCI to LCx and RCA in 2004; successful PCI to D1) Pacemaker: ventricular pacing w/capt
--- NOTE | 2018-11-07 13:53 | Progress Note ---
Assessment and Plan Assessment and plan: Acute on chronic HFrEF. Cardiology following. S/p dobutamine gtt. BLE edema persists and pt with c/o increasing abdominal swelling. Continue IV Bumex 1 mg twice a day and metolazone. Continue low-dose beta erika as tolerated Ischemic cardiomyopathy. As above. Pulmonary hypertension. Acute hypoxic respiratory failure. Etiology secondary to above. Continue to treat underlying causes. AICD in situ. History of coronary artery disease. Diabetes mellitus type 2. Continue Accu-Cheks and sliding scale. Severe mitral regurgitation. Gross ascitis s/p US guided paracentesis done 11/07 and 400ml fluid removed History Interval history: Less shortness of breath No chest pain Abdominal distension r Hospitalist Physical - Physical exam Narrative exam: Gen: Not in acute distress, lying in bed, HEENT: Normocephalic, atraumatic Neck: supple, no JVD Heart: S1 and S2 reg, no murmurs, rubs or gallop Lungs: Clear, no crackles or wheeze Abd: soft, non tender, mild distension, normal BS Ext: Bilateral leg edema, no clubbing, no cyanosis Neuro:awake,alert, Oriented X 3. No focal signs Psych: Normal mood - Constitutional Vitals: Temp Pulse Resp BP Pulse Ox 97.9 F 87 18 97/63 100 11/07/18 11:54 11/07/18 11:54 11/07/18 11:54 11/07/18 11:54 11/07/18 11:54 General appearance: Present: no acute distress, well-nourished Results - Labs CBC & Chem 7: 11/04/18 05:55 11/08/18 09:47 Labs: Laboratory Last Values WBC 4.4 K/mm3 (4.5-11.0) L 11/04/18 05:55 RBC 4.10 M/mm3 (3.65-5.03) 11/04/18 05:55 Hgb 11.6 gm/dl (11.8-15.2) L 11/04/18 05:55 Hct 35.1 % (35.5-45.6) L 11/04/18 05:55 MCV 86 fl (84-94) 11/04/18 05:55 MCH 28 pg (28-32) 11/04/18 05:55 MCHC 33 % (32-34) 11/04/18 05:55 RDW 20.9 % (13.2-15.2) H 11/04/18 05:55 Plt Count 94 K/mm3 (140-440) L 11/04/18 05:55 [place] % (Auto) Senior Economist 11/04/18 05:55 Add Manual Diff Complete 11/04/18 05:55 Total Counted 100 11/04/18 05:55 Seg Neuts % (Manual) 67.0 % (40.0-70.0) 11/04/18 05:55 0 % 11/04/18 05:55 16.0 % (13.4-35.0) 11/04/18 05:55 Reactive Lymphs % (Man) 0 % 11/04/18 05:55 17.0 % (0.0-7.3) H 11/04/18 05:55 0 % (0.0-4.3) 11/04/18 05:55 0 % (0.0-1.8) 11/04/18 05:55 0 % 11/04/18 05:55 0 % 11/04/18 05:55 0 % 11/04/18 05:55 0 % 11/04/18 05:55 Nucleated RBC % Not Reportable 11/04/18 05:55 Seg Neutrophils # Man 2.9 K/mm3 (1.8-7.7) 11/04/18 05:55 Band Neutrophils # 0.0 K/mm3 11/04/18 05:55 0.7 K/mm3 (1.2-5.4) L 11/04/18 05:55 Abs React Lymphs (Man) 0.0 K/mm3 11/04/18 05:55 0.7 K/mm3 (0.0-0.8) 11/04/18 05:55 0.0 K/mm3 (0.0-0.4) 11/04/18 05:55 0.0 K/mm3 (0.0-0.1) 11/04/18 05:55 0.0 K/mm3 11/04/18 05:55 0.0 K/mm3 11/04/18 05:55 0.0 K/mm3 11/04/18 05:55 Blast Cells # 0.0 K/mm3 11/04/18 05:55 WBC Morphology Not Reportable 11/04/18 05:55 WBC Morphology TNR 11/04/18 05:55 Hypersegmented Neuts Not Reportable 11/04/18 05:55 Hyposegmented Neuts Not Reportable 11/04/18 05:55 Hypogranular Neuts Not Reportable 11/04/18 05:55 Not Reportable 11/04/18 05:55 Not Reportable 11/04/18 05:55 Not Reportable 11/04/18 05:55 Not Reportable 11/04/18 05:55 Not Reportable 11/04/18 05:55 Not Reportable 11/04/18 05:55 Consistent w auto 11/04/18 05:55 Not Reportable 11/04/18 05:55 Plt Clumps, EDTA Not Reportable 11/04/18 05:55 Not Reportable 11/04/18 05:55 Not Reportable 11/04/18 05:55 Not Reportable 11/04/18 05:55 Plt Morphology Comment Not Reportable 11/04/18 05:55 RBC Morphology Not Reportable 11/04/18 05:55 Dimorphic RBCs Not Reportable 11/04/18 05:55 Few 11/04/18 05:55 1+ 11/04/18 05:55 Not Reportable 11/04/18 05:55 1+ 11/04/18 05:55 Not Reportable 11/04/18 05:55 Not Reportable 11/04/18 05:55 Not Reportable 11/04/18 05:55 Not Reportable 11/04/18 05:55 Not Reportable 11/04/18 05:55 Not Reportable 11/04/18 05:55 Not Reportable 11/04/18 05:55 Not Reportable 11/04/18 05:55 Not Reportable 11/04/18 05:55 Not Reportable 11/04/18 05:55 Not Reportable 11/04/18 05:55 Not Reportable 11/04/18 05:55 Not Reportable 11/04/18 05:55 Not Reportable 11/04/18 05:55 Not Reportable 11/04/18 05:55 Acanthocytes (Spur) Not Reportable 11/04/18 05:55 Rouleaux Not Reportable 11/04/18 05:55 Not Reportable 11/04/18 05:55 Not Reportable 11/04/18 05:55 Not Reportable 11/04/18 05:55 Not Reportable 11/04/18 05:55 Hem Pathologist Commnt No 11/04/18 05:55 PT 16.5 Sec. (12.2-14.9) H 11/06/18 16:11 INR 1.37 (0.87-1.13) H 11/06/18 16:11 APTT 58.1 Sec. (24.2-36.6) H 11/06/18 16:11 Sodium 139 mmol/L (137-145) 11/06/18 08:03 Potassium 4.0 mmol/L (3.6-5.0) 11/06/18 08:03 Chloride 99.2 mmol/L (98-107) 11/06/18 08:03 Carbon Dioxide 25 mmol/L (22-30) 11/06/18 08:03 19 mmol/L 11/06/18 08:03 BUN 29 mg/dL (9-20) H 11/06/18 08:03 1.1 mg/dL (0.8-1.5) 11/06/18 08:03 Estimated GFR > 60 ml/min 11/06/18 08:03 26 % 11/06/18 08:03 Glucose 123 mg/dL (75-100) H 11/06/18 08:03 POC Glucose 133 (70-105) H 11/07/18 11:59 8.6 % (4-6) H 10/26/18 04:38 Calcium 8.8 mg/dL (8.4-10.2) 11/06/18 08:03 Phosphorus 3.10 mg/dL (2.5-4.5) 10/29/18 05:49 Magnesium 1.70 mg/dL (1.7-2.3) 11/04/18 18:35 2.00 mg/dL (0.1-1.2) H 11/06/18 08:03 AST 15 units/L (5-40) 11/06/18 08:03 ALT 5 units/L (7-56) L 11/06/18 08:03 141 units/L (35-129) H 11/06/18 08:03 0.014 ng/mL (0.00-0.029) 10/24/18 17:58 NT-Pro-B Natriuret Pep 6211 pg/mL (0-900) H 10/24/18 17:58 6.7 g/dL (6.3-8.2) 11/06/18 08:03 3.1 g/dL (3.9-5) L 11/06/18 08:03 0.9 % 11/06/18 08:03 29 units/L (13-60) 10/24/18 17:58 Yellow (Yellow) 10/24/18 22:17 Clear (Clear) 10/24/18 22:17 5.0 (5.0-7.0) 10/24/18 22:17 Ur Specific [place] 1.011 (1.003-1.030) 10/24/18 22:17 <15 mg/dl mg/dL (Negative) 10/24/18 22:17 Neg mg/dL (Negative) 10/24/18 22:17 Neg mg/dL (Negative) 10/24/18 22:17 Sm (Negative) 10/24/18 22:17 Neg (Negative) 10/24/18 22:17 Neg (Negative) 10/24/18 22:17 4.0 mg/dL (<2.0) 10/24/18 22:17 Ur Leukocyte Esterase Neg (Negative) 10/24/18 22:17 1.0 /HPF (0.0-6.0) 10/24/18 22:17 2.0 /HPF (0.0-6.0) 10/24/18 22:17 Few /HPF 10/24/18 22:17 Digoxin 0.6 ng/mL (0.9-2.0) L 11/06/18 08:03 Hepatitis A IgM Ab Non-reactive (NonReactive) 11/06/18 19:49 Hep Bs Antigen Non-reactive (Negative) 11/06/18 19:49 Hep B Core IgM Ab Non-reactive (NonReactive) 11/06/18 19:49 Non-reactive (NonReactive) 11/06/18 19:49 Active Medications - Current Medications Current Medications: Generic Name Dose Route Start Last Admin Trade Name Freq PRN Reason Stop Dose Admin Bumetanide 1 mg 10/31/18 11:15 11/07/18 06:07 Bumex IV 1 mg BID@0600,1800 [facility] Administration Carvedilol 3.125 mg 10/25/18 22:00 11/07/18 10:07 Coreg PO Not Given BID [facility] Digoxin 0.125 mg 11/06/18 17:00 11/06/18 17:21 Lanoxin PO 0.125 mg DAILY@1700 [facility] Administration Docusate Sodium 100 mg 10/25/18 12:00 11/07/18 10:07 Colace PO 100 mg BID [facility] Administration Insulin Human Lispro 0 unit 10/25/18 11:30 11/07/18 12:18 Humalog SUB-Q Not Given ACHS [facility] Protocol Lisinopril 2.5 mg 11/05/18 10:00 11/07/18 10:16 Zestril PO Not Given QDAY [facility] Metformin HCl 750 mg 10/26/18 08:00 11/07/18 09:02 Glucophage Xr PO Not Given QDDIAB [facility] Methocarbamol 500 mg 10/25/18 18:06 Robaxin PO Q8HR PRN Muscle Spasm Metolazone 2.5 mg 10/28/18 18:30 11/07/18 10:07 Zaroxolyn PO 2.5 mg QDAY [facility] Administration Montelukast Sodium 10 mg 10/25/18 18:00 11/06/18 21:20 Singulair PO Not Given QPM [facility] Neomycin/Polymyxin/Bacitracin 1 applic 10/25/18 12:00 11/07/18 10:07 Triple Antibiotic TP 1 applic BID [facility] Administration Pravastatin Sodium 40 mg 10/25/18 22:00 11/06/18 22:26 Pravachol PO 40 mg QHS [facility] Administration Spironolactone 50 mg 11/07/18 22:00 Aldactone PO BID [facility] Nutrition/Malnutrition Assess - Dietary Evaluation Nutrition/Malnutrition Findings: Nutrition Notes Start: 10/31/18 17:15 Freq: Status: Active Protocol: Document 10/31/18 17:15 RM (Rec: 10/31/18 17:15 RM [id number]) Nutrition Notes Need for Assessment generated from: LOS Initial or Follow up Brief Note Height 5 ft 10 in Weight 90.5 kg [place] Body Weight (kg) 75.45 BMI 28.6 Subjective/Other Information Screened for LOS. Recorded PO intake 85% X 2 days. Nutrition Intervention Revisit per MD consult or patient Sign Off request:
[2018-11-07] MEDS ORDERED: XYLOCAINE 1% 20 mL ONE (14:32)
--- NOTE | 2018-11-07 14:58 | Procedure Note ---
Date of procedure: 11/07/18 Pre-op diagnosis: ascites Post-op diagnosis: same Procedure: US paracentesis Findings: moderate ascites Anesthesia: local Surgeon: GURJIT YANEZ Estimated blood loss: none Pathology: list (120cc) Specimen disposition: to lab Condition: stable Disposition: floor
--- NOTE | 2018-11-07 15:54 | Ultrasound Report ---
ULTRASOUND-GUIDED PARACENTESIS HISTORY: Gross ascitis. PROCEDURE: The risks (including but not limited to bleeding, infection, and bowel injury) and benefi ts were explained to the patient and informed consent was obtained. A time out procedure was perform ed. Ultrasound was used to evaluate the abdomen and locate the largest ascites fluid pocket. Once the sk in was marked, the procedure site was prepped and draped in the usual sterile fashion and lidocaine w as used for local anesthesia. A skin russ was made and a 6-[place] paracentesis catheter was placed. The patient was monitored closely throughout the procedure, and a total of 4000 mL of lead tinged fl uid was aspirated. Samples were sent to the lab for further evaluation per the primary clinicians or ders. The patient tolerated the procedure well with no complications. IMPRESSION: Successful ultrasound-guided paracentesis. Signer Name: Jigar Hough Jr, MD Signed: 11/07/2018 3:50 PM Workstation Name: [id number]
[2018-11-07 17:28] LABS: Total Cells Counted 100 /mm3
[2018-11-07] MEDS: SINGULAIR PO SCH (18:01)
[2018-11-07] MEDS: LANOXIN PO SCH (18:01)
[2018-11-07] MEDS: PRAVACHOL PO SCH (21:21)
[2018-11-07] MEDS: ALDACTONE PO SCH (21:21)
[2018-11-08] MEDS: BUMEX IV SCH ×2 (05:19→17:28)
[2018-11-08] MEDS: HumaLOG SUB-Q SCH ×4 (09:22→21:13)
[2018-11-08] MEDS: GLUCOPHAGE XR PO SCH (09:29)
--- NOTE | 2018-11-08 09:29 | Ultrasound Report ---
ULTRASOUND ABDOMEN, LIMITED (RIGHT UPPER QUADRANT) INDICATION: ascitis, to examine liver. COMPARISON: None available. FINDINGS: Pancreas: Visualized portion shows no significant abnormality. Liver: Normal. Gallbladder: Contracted with thickened wall but no definite stones. Bile ducts: Normal. Common Bile Duct measures 5.3 mm. Free fluid: None. Additional Findings: There is moderate ascites as well as right pleural effusion. IMPRESSION: 1. Contracted gallbladder with thickened wall but no definite stones. Moderate ascites. Signer Name: Jett Page MD Signed: 11/08/2018 9:24 AM Workstation Name: [id number]
[2018-11-08] MEDS: COLACE PO SCH ×2 (09:31→21:29)
[2018-11-08] MEDS: ZAROXOLYN PO SCH (09:31)
[2018-11-08] MEDS: ALDACTONE PO SCH ×2 (09:31→21:28)
[2018-11-08] MEDS: TRIPLE ANTIBIOTIC TP SCH ×2 (09:31→21:31)
[2018-11-08] MEDS: COREG PO SCH ×2 (09:32→21:29)
[2018-11-08] MEDS: ZESTRIL PO SCH (09:38)
[2018-11-08 10:27] LABS: Alanine Aminotransferase 5 units/L (7-56); Albumin 3.1 g/dL (3.9-5); BUN/Creatinine Ratio 21; Blood Urea Nitrogen 23 mg/dL (9-20); Calcium 8.7 mg/dL (8.4-10.2); Hemolysis Index 0
--- NOTE | 2018-11-08 11:30 | Gastroenterology Progress Note ---
Assessment and Plan GI: pt h/o CHF now with ascites and signs hepatic congestion - s/p LVP and doing well - labs negative for SBP, other labs pending - continue diuretics as ordered - doubt underlying liver disease but can complete eval as outpt - can d/c from GI standpoint w/ follow up outpt - will sign off, call if needed Subjective Date of service: 11/08/18 Principal diagnosis: Acute on chronic HFrEF, Ischemic CMP, MANAGER DECISION SUPPORT/ICD, CAD s/p PCI, Severe MR Interval history: - pt reports feeling well, denies GI complaints Objective - Constitutional Vitals: Temp Pulse Resp BP Pulse Ox 98.1 F 88 18 106/62 96 11/08/18 04:39 11/08/18 09:38 11/08/18 04:39 11/08/18 09:38 11/08/18 04:39 General appearance: no acute distress - EENT Eyes: PERRL - Respiratory Respiratory: bilateral: CTA - Cardiovascular Rhythm: regular Heart Sounds: Present: S1 & S2 - Gastrointestinal General gastrointestinal: Present: soft, non-tender, non-distended - Labs CBC & Chem 7: 11/04/18 05:55 11/08/18 09:47 Labs: Laboratory Results - last 24 hr 11/07/18 11/07/18 11/07/18 11:59 16:07 20:48 Sodium Potassium Chloride Carbon Dioxide Anion Gap BUN Creatinine Estimated GFR BUN/Creatinine Ratio Glucose POC Glucose 133 H 133 H 137 H Calcium Total Bilirubin AST ALT Alkaline Phosphatase Total Protein Albumin Albumin/Globulin Ratio Fluid Type Fluid Color Fluid Appearance Fluid WBC Fluid RBC Fluid Seg Neutrophils Fluid Lymphocytes Fluid Reactive Lymphs Fluid Monocytes Fluid Eosinophils Fluid Basophils 11/07/18 11/08/18 11/08/18 Unknown 08:49 09:47 Sodium 140 Potassium 3.2 L Chloride 95.2 L Carbon Dioxide 32 H D Anion Gap 16 BUN 23 H Creatinine 1.1 Estimated GFR > 60 BUN/Creatinine Ratio 21 Glucose 170 H POC Glucose 125 H Calcium 8.7 Total Bilirubin 1.70 H AST 16 ALT 5 L Alkaline Phosphatase 148 H Total Protein 7.0 Albumin 3.1 L Albumin/Globulin Ratio 0.8 Fluid Type Ascitic Fluid Color Red Fluid Appearance Cloudy Fluid WBC 759 Fluid RBC 01391 Fluid Seg Neutrophils 6.0 Fluid Lymphocytes 48.0 Fluid Reactive Lymphs 0 Fluid Monocytes 46.0 Fluid Eosinophils 0 Fluid Basophils 0
--- NOTE | 2018-11-08 12:08 | Progress Note ---
Assessment and Plan Rx KCL today. Obtain BMP in am. Possible DC tomorrow cardiac-priest if electrolytes are stable and BP is OK. - Patient Problems (1) Acute on chronic HFrEF (heart failure with reduced ejection fraction) Current Visit: Yes Status: Acute (2) Cardiac resynchronization therapy defibrillator ([employer] LEADER-D) in place Current Visit: Yes Status: Chronic (3) Ischemic cardiomyopathy Current Visit: Yes Status: Chronic (4) CAD (coronary artery disease) Current Visit: Yes Status: Chronic Qualifiers: Coronary Disease-Associated Artery/Lesion type: [place] artery (5) History of coronary artery stent placement Current Visit: Yes Status: Chronic (6) Severe mitral regurgitation Current Visit: Yes Status: Chronic (7) Pulmonary hypertension Current Visit: Yes Status: Chronic (8) Ascites Current Visit: Yes Status: Acute (9) Thrombocytopenia Current Visit: Yes Status: Acute (10) Diabetes Current Visit: Yes Status: Chronic Subjective Date of service: 11/08/18 Principal diagnosis: Acute on chronic HFrEF, Ischemic CMP, [employer]IC[employer]ING [employer] LEADER/ICD, CAD s/p PCI, Severe MR Interval history: No complaint. Objective Vital Signs Temp Pulse Resp BP Pulse Ox 11/08/18 10:00 20 11/08/18 09:38 88 106/62 11/08/18 09:32 88 106/62 11/08/18 09:31 92 H 100/62 11/08/18 04:39 98.1 F 79 18 85/51 96 11/08/18 00:07 98.2 F 91 H 18 94/62 92 11/07/18 22:00 94 H 11/07/18 19:37 98.4 F 94 H 18 113/71 100 11/07/18 19:28 98 11/07/18 18:01 109 H 90/61 11/07/18 17:49 91 H 99 11/07/18 17:48 115/71 11/07/18 17:00 109 H 11/07/18 16:03 97.9 F 46 L 18 90/61 100 - Physical Examination General: No Apparent Distress HEENT: Positive: EOMI, Normocephaly, Mucus Membranes Moist Neck: Positive: neck supple, trachea midline, JVD/HJR Cardiac: Positive: Reg Rate and Rhythm Lungs: Positive: clear to auscultation Neuro: Positive: Grossly Intact Abdomen: Positive: Soft, Active Bowel Sounds, Distended. Negative: Tender Skin: Positive: Clear. Negative: Rash Musculoskeletal: Normal Range of Motion Extremities: Present: +1 Edema (bilateral leg edema) - Labs and Meds Cardiac Enzymes 11/08/18 Range/Units 09:47 AST 16 (5-40) units/L Comprehensive Metabolic Panel 11/08/18 Range/Units 09:47 Sodium 140 (137-145) mmol/L Potassium 3.2 L (3.6-5.0) mmol/L Chloride 95.2 L (98-107) mmol/L Carbon Dioxide 32 H D (22-30) mmol/L BUN 23 H (9-20) mg/dL Creatinine 1.1 (0.8-1.5) mg/dL Glucose 170 H (75-100) mg/dL Calcium 8.7 (8.4-10.2) mg/dL AST 16 (5-40) units/L ALT 5 L (7-56) units/L Alkaline Phosphatase 148 H (35-129) units/L Total Protein 7.0 (6.3-8.2) g/dL Albumin 3.1 L (3.9-5) g/dL - Imaging and Cardiology EKG: image reviewed (ventricular paced) Echo: report reviewed (03/2017: EF 20%, LV severely dilated, grade 3 diastolic dysfunction, severe MR) Cardiac cath: report reviewed (Successful PCI to LCx and RCA in 2004; successful PCI to D1) Pacemaker: ventricular pacing w/capt
[2018-11-08] MEDS: K-DUR PO SCH ×2 (13:12→15:24)
[2018-11-08] MEDS: LANOXIN PO SCH (17:11)
[2018-11-08] MEDS: SINGULAIR PO SCH (17:11)
--- NOTE | 2018-11-08 17:54 | Progress Note ---
Assessment and Plan Assessment and plan: Acute on chronic HFrEF. Cardiology following. S/p dobutamine gtt. BLE edema persists and pt with c/o increasing abdominal swelling. Continue IV Bumex 1 mg twice a day and metolazone. Continue low-dose beta erika as tolerated Ischemic cardiomyopathy. As above. Pulmonary hypertension. Acute hypoxic respiratory failure. Etiology secondary to above. Continue to treat underlying causes. AICD in situ. History of coronary artery disease. Diabetes mellitus type 2. Continue Accu-Cheks and sliding scale. Severe mitral regurgitation. Gross ascitis s/p US guided paracentesis done 11/07 and 4 liters fluid removed Hypotensive Give NS bolus hold anti-hypertensive Start midodrine Poss dc tomorrow if BP improved History Interval history: Less shortness of breath No chest pain r Hospitalist Physical - Physical exam Narrative exam: Gen: Not in acute distress, lying in bed, HEENT: Normocephalic, atraumatic Neck: supple, no JVD Heart: S1 and S2 reg, no murmurs, rubs or gallop Lungs: Clear, no crackles or wheeze Abd: soft, non tender, not distended, normal BS Ext: Bilateral leg edema, no clubbing, no cyanosis Neuro:awake,alert, Oriented X 3. No focal signs Psych: Normal mood - Constitutional Vitals: Temp Pulse Resp BP Pulse Ox 98.1 F 95 H 20 90/58 99 11/08/18 08:42 11/08/18 17:11 11/08/18 13:16 11/08/18 17:11 11/08/18 15:34 General appearance: Present: no acute distress, well-nourished Results - Labs CBC & Chem 7: 11/04/18 05:55 11/09/18 05:10 Labs: Laboratory Last Values WBC 4.4 K/mm3 (4.5-11.0) L 11/04/18 05:55 RBC 4.10 M/mm3 (3.65-5.03) 11/04/18 05:55 Hgb 11.6 gm/dl (11.8-15.2) L 11/04/18 05:55 Hct 35.1 % (35.5-45.6) L 11/04/18 05:55 MCV 86 fl (84-94) 11/04/18 05:55 MCH 28 pg (28-32) 11/04/18 05:55 MCHC 33 % (32-34) 11/04/18 05:55 RDW 20.9 % (13.2-15.2) H 11/04/18 05:55 Plt Count 94 K/mm3 (140-440) L 11/04/18 05:55 Saline % (Auto) Hose Coupling Joiner 11/04/18 05:55 Add Manual Diff Complete 11/04/18 05:55 Total Counted 100 11/04/18 05:55 Seg Neuts % (Manual) 67.0 % (40.0-70.0) 11/04/18 05:55 0 % 11/04/18 05:55 16.0 % (13.4-35.0) 11/04/18 05:55 Reactive Lymphs % (Man) 0 % 11/04/18 05:55 17.0 % (0.0-7.3) H 11/04/18 05:55 0 % (0.0-4.3) 11/04/18 05:55 0 % (0.0-1.8) 11/04/18 05:55 0 % 11/04/18 05:55 0 % 11/04/18 05:55 0 % 11/04/18 05:55 0 % 11/04/18 05:55 Nucleated RBC % Not Reportable 11/04/18 05:55 Seg Neutrophils # Man 2.9 K/mm3 (1.8-7.7) 11/04/18 05:55 Band Neutrophils # 0.0 K/mm3 11/04/18 05:55 0.7 K/mm3 (1.2-5.4) L 11/04/18 05:55 Abs React Lymphs (Man) 0.0 K/mm3 11/04/18 05:55 0.7 K/mm3 (0.0-0.8) 11/04/18 05:55 0.0 K/mm3 (0.0-0.4) 11/04/18 05:55 0.0 K/mm3 (0.0-0.1) 11/04/18 05:55 0.0 K/mm3 11/04/18 05:55 0.0 K/mm3 11/04/18 05:55 0.0 K/mm3 11/04/18 05:55 Blast Cells # 0.0 K/mm3 11/04/18 05:55 WBC Morphology Not Reportable 11/04/18 05:55 WBC Morphology TNR 11/04/18 05:55 Hypersegmented Neuts Not Reportable 11/04/18 05:55 Hyposegmented Neuts Not Reportable 11/04/18 05:55 Hypogranular Neuts Not Reportable 11/04/18 05:55 Not Reportable 11/04/18 05:55 Not Reportable 11/04/18 05:55 Not Reportable 11/04/18 05:55 Not Reportable 11/04/18 05:55 Not Reportable 11/04/18 05:55 Not Reportable 11/04/18 05:55 Consistent w auto 11/04/18 05:55 Not Reportable 11/04/18 05:55 Plt Clumps, EDTA Not Reportable 11/04/18 05:55 Not Reportable 11/04/18 05:55 Not Reportable 11/04/18 05:55 Not Reportable 11/04/18 05:55 Plt Morphology Comment Not Reportable 11/04/18 05:55 RBC Morphology Not Reportable 11/04/18 05:55 Dimorphic RBCs Not Reportable 11/04/18 05:55 Few 11/04/18 05:55 1+ 11/04/18 05:55 Not Reportable 11/04/18 05:55 1+ 11/04/18 05:55 Not Reportable 11/04/18 05:55 Not Reportable 11/04/18 05:55 Not Reportable 11/04/18 05:55 Not Reportable 11/04/18 05:55 Not Reportable 11/04/18 05:55 Not Reportable 11/04/18 05:55 Not Reportable 11/04/18 05:55 Not Reportable 11/04/18 05:55 Not Reportable 11/04/18 05:55 Not Reportable 11/04/18 05:55 Not Reportable 11/04/18 05:55 Not Reportable 11/04/18 05:55 Not Reportable 11/04/18 05:55 Not Reportable 11/04/18 05:55 Not Reportable 11/04/18 05:55 Acanthocytes (Spur) Not Reportable 11/04/18 05:55 Rouleaux Not Reportable 11/04/18 05:55 Not Reportable 11/04/18 05:55 Not Reportable 11/04/18 05:55 Not Reportable 11/04/18 05:55 Not Reportable 11/04/18 05:55 Hem Pathologist Commnt No 11/04/18 05:55 PT 16.5 Sec. (12.2-14.9) H 11/06/18 16:11 INR 1.37 (0.87-1.13) H 11/06/18 16:11 APTT 58.1 Sec. (24.2-36.6) H 11/06/18 16:11 Sodium 140 mmol/L (137-145) 11/08/18 09:47 Potassium 3.2 mmol/L (3.6-5.0) L 11/08/18 09:47 Chloride 95.2 mmol/L (98-107) L 11/08/18 09:47 Carbon Dioxide 32 mmol/L (22-30) H D 11/08/18 09:47 16 mmol/L 11/08/18 09:47 BUN 23 mg/dL (9-20) H 11/08/18 09:47 1.1 mg/dL (0.8-1.5) 11/08/18 09:47 Estimated GFR > 60 ml/min 11/08/18 09:47 21 % 11/08/18 09:47 Glucose 170 mg/dL (75-100) H 11/08/18 09:47 POC Glucose 80 (70-105) 11/08/18 16:53 8.6 % (4-6) H 10/26/18 04:38 Calcium 8.7 mg/dL (8.4-10.2) 11/08/18 09:47 Phosphorus 3.10 mg/dL (2.5-4.5) 10/29/18 05:49 Magnesium 1.70 mg/dL (1.7-2.3) 11/04/18 18:35 1.70 mg/dL (0.1-1.2) H 11/08/18 09:47 AST 16 units/L (5-40) 11/08/18 09:47 ALT 5 units/L (7-56) L 11/08/18 09:47 148 units/L (35-129) H 11/08/18 09:47 0.014 ng/mL (0.00-0.029) 10/24/18 17:58 NT-Pro-B Natriuret Pep 6211 pg/mL (0-900) H 10/24/18 17:58 7.0 g/dL (6.3-8.2) 11/08/18 09:47 3.1 g/dL (3.9-5) L 11/08/18 09:47 0.8 % 11/08/18 09:47 29 units/L (13-60) 10/24/18 17:58 Yellow (Yellow) 10/24/18 22:17 Clear (Clear) 10/24/18 22:17 5.0 (5.0-7.0) 10/24/18 22:17 Ur Specific [place] 1.011 (1.003-1.030) 10/24/18 22:17 <15 mg/dl mg/dL (Negative) 10/24/18 22:17 Neg mg/dL (Negative) 10/24/18 22:17 Neg mg/dL (Negative) 10/24/18 22:17 Sm (Negative) 10/24/18 22:17 Neg (Negative) 10/24/18 22:17 Neg (Negative) 10/24/18 22:17 4.0 mg/dL (<2.0) 10/24/18 22:17 Ur Leukocyte Esterase Neg (Negative) 10/24/18 22:17 1.0 /HPF (0.0-6.0) 10/24/18 22:17 2.0 /HPF (0.0-6.0) 10/24/18 22:17 Few /HPF 10/24/18 22:17 Fluid Type Ascitic 11/07/18 Unknown Fluid Color Red 11/07/18 Unknown Fluid Appearance Cloudy 11/07/18 Unknown Fluid WBC 759 /mm3 11/07/18 Unknown Fluid RBC 72012 /mm3 11/07/18 Unknown Fluid Seg Neutrophils 6.0 % 11/07/18 Unknown Fluid Lymphocytes 48.0 % 11/07/18 Unknown Fluid Reactive Lymphs 0 % 11/07/18 Unknown Fluid Monocytes 46.0 % 11/07/18 Unknown Fluid Eosinophils 0 % 11/07/18 Unknown Fluid Basophils 0 % 11/07/18 Unknown Digoxin 0.6 ng/mL (0.9-2.0) L 11/06/18 08:03 Hepatitis A IgM Ab Non-reactive (NonReactive) 11/06/18 19:49 Hep Bs Antigen Non-reactive (Negative) 11/06/18 19:49 Hep B Core IgM Ab Non-reactive (NonReactive) 11/06/18 19:49 Non-reactive (NonReactive) 11/06/18 19:49 Active Medications - Current Medications Current Medications: Generic Name Dose Route Start Last Admin Trade Name Freq PRN Reason Stop Dose Admin Bumetanide 1 mg 10/31/18 11:15 11/08/18 17:28 Bumex IV Not Given BID@0600,1800 [facility] Carvedilol 3.125 mg 10/25/18 22:00 11/08/18 09:32 Coreg PO 3.125 mg BID NORRIS Administration Digoxin 0.125 mg 11/06/18 17:00 11/08/18 17:11 Lanoxin PO 0.125 mg DAILY@1700 NORRIS Administration Docusate Sodium 100 mg 10/25/18 12:00 11/08/18 09:31 Colace PO 100 mg BID NORRIS Administration Insulin Human Lispro 0 unit 10/25/18 11:30 11/08/18 17:05 Humalog SUB-Q Not Given ACHS [facility] Protocol Lisinopril 2.5 mg 11/05/18 10:00 11/08/18 09:38 Zestril PO Not Given QDAY NORRIS Metformin HCl 750 mg 10/26/18 08:00 11/08/18 09:29 Glucophage Xr PO 750 mg QDDIAB NORRIS Administration Methocarbamol 500 mg 10/25/18 18:06 Robaxin PO Q8HR PRN Muscle Spasm Metolazone 2.5 mg 10/28/18 18:30 11/08/18 09:31 Zaroxolyn PO 2.5 mg QDAY [facility] Administration Montelukast Sodium 10 mg 10/25/18 18:00 11/08/18 17:11 Singulair PO 10 mg QPM NORRIS Administration Neomycin/Polymyxin/Bacitracin 1 applic 10/25/18 12:00 11/08/18 09:31 Triple Antibiotic TP Not Given BID [facility] Pravastatin Sodium 40 mg 10/25/18 22:00 11/07/18 21:21 Pravachol PO 40 mg QHS NORRIS Administration Spironolactone 50 mg 11/07/18 22:00 11/08/18 09:31 Aldactone PO 50 mg BID NORRIS Administration Nutrition/Malnutrition Assess - Dietary Evaluation Nutrition/Malnutrition Findings: Nutrition Notes Start: 10/31/18 17:15 Freq: Status: Active Protocol: Document 10/31/18 17:15 RM (Rec: 10/31/18 17:15 RM [id number]) Nutrition Notes Need for Assessment generated from: LOS Initial or Follow up Brief Note Height 5 ft 10 in Weight 90.5 kg [place] Body Weight (kg) 75.45 BMI 28.6 Subjective/Other Information Screened for LOS. Recorded PO intake 85% X 2 days. Nutrition Intervention Revisit per MD consult or patient Sign Off request:
[2018-11-08 19:21] LABS: BUN/Creatinine Ratio 26; Blood Urea Nitrogen 26 mg/dL (9-20); Calcium 8.4 mg/dL (8.4-10.2); Hemolysis Index 1
[2018-11-08] MEDS: PROAMATINE PO SCH (21:28)
[2018-11-08] MEDS: PRAVACHOL PO SCH (21:29)
[2018-11-09] MEDS: BUMEX IV SCH (05:24)
[2018-11-09] MEDS: HumaLOG SUB-Q SCH ×4 (07:50→21:44)
[2018-11-09] MEDS: GLUCOPHAGE XR PO SCH (08:18)
[2018-11-09] MEDS: PROAMATINE PO SCH ×3 (08:19→21:40)
--- NOTE | 2018-11-09 08:56 | Progress Note ---
Assessment and Plan Assessment and plan: Acute on chronic HFrEF. Cardiology following. S/p dobutamine gtt. BLE edema persists and pt with c/o increasing abdominal swelling. Continue IV Bumex 1 mg twice a day and metolazone. Continue low-dose beta erika as tolerated Ischemic cardiomyopathy. As above. Pulmonary hypertension. Acute hypoxic respiratory failure. Etiology secondary to above. Continue to treat underlying causes. AICD in situ. History of coronary artery disease. Diabetes mellitus type 2. Continue Accu-Cheks and sliding scale. Severe mitral regurgitation. Gross ascitis s/p US guided paracentesis done 11/07 and 4 liters fluid removed Hypotensive Gave NS bolus hold anti-hypertensive Started midodrine Poss dc tomorrow if BP improved History Interval history: Less shortness of breath No chest pain BP low Hospitalist Physical - Physical exam Narrative exam: Gen: Not in acute distress, lying in bed, HEENT: Normocephalic, atraumatic Neck: supple, no JVD Heart: S1 and S2 reg, no murmurs, rubs or gallop Lungs: Clear, no crackles or wheeze Abd: soft, non tender, not distended, normal BS Ext: Bilateral leg edema, no clubbing, no cyanosis Neuro:awake,alert, Oriented X 3. No focal signs Psych: Normal mood - Constitutional Vitals: Temp Pulse Resp BP Pulse Ox 98.5 F 78 18 93/64 99 11/09/18 07:46 11/09/18 04:49 11/09/18 07:46 11/09/18 07:46 11/09/18 04:49 General appearance: Present: no acute distress, well-nourished Results - Labs CBC & Chem 7: 11/04/18 05:55 11/09/18 09:30 Labs: Laboratory Last Values WBC 4.4 K/mm3 (4.5-11.0) L 11/04/18 05:55 RBC 4.10 M/mm3 (3.65-5.03) 11/04/18 05:55 Hgb 11.6 gm/dl (11.8-15.2) L 11/04/18 05:55 Hct 35.1 % (35.5-45.6) L 11/04/18 05:55 MCV 86 fl (84-94) 11/04/18 05:55 MCH 28 pg (28-32) 11/04/18 05:55 MCHC 33 % (32-34) 11/04/18 05:55 RDW 20.9 % (13.2-15.2) H 11/04/18 05:55 Plt Count 94 K/mm3 (140-440) L 11/04/18 05:55 Ross % (Auto) Internet Marketer 11/04/18 05:55 Add Manual Diff Complete 11/04/18 05:55 Total Counted 100 11/04/18 05:55 Seg Neuts % (Manual) 67.0 % (40.0-70.0) 11/04/18 05:55 0 % 11/04/18 05:55 16.0 % (13.4-35.0) 11/04/18 05:55 Reactive Lymphs % (Man) 0 % 11/04/18 05:55 17.0 % (0.0-7.3) H 11/04/18 05:55 0 % (0.0-4.3) 11/04/18 05:55 0 % (0.0-1.8) 11/04/18 05:55 0 % 11/04/18 05:55 0 % 11/04/18 05:55 0 % 11/04/18 05:55 0 % 11/04/18 05:55 Nucleated RBC % Not Reportable 11/04/18 05:55 Seg Neutrophils # Man 2.9 K/mm3 (1.8-7.7) 11/04/18 05:55 Band Neutrophils # 0.0 K/mm3 11/04/18 05:55 0.7 K/mm3 (1.2-5.4) L 11/04/18 05:55 Abs React Lymphs (Man) 0.0 K/mm3 11/04/18 05:55 0.7 K/mm3 (0.0-0.8) 11/04/18 05:55 0.0 K/mm3 (0.0-0.4) 11/04/18 05:55 0.0 K/mm3 (0.0-0.1) 11/04/18 05:55 0.0 K/mm3 11/04/18 05:55 0.0 K/mm3 11/04/18 05:55 0.0 K/mm3 11/04/18 05:55 Blast Cells # 0.0 K/mm3 11/04/18 05:55 WBC Morphology Not Reportable 11/04/18 05:55 WBC Morphology TNR 11/04/18 05:55 Hypersegmented Neuts Not Reportable 11/04/18 05:55 Hyposegmented Neuts Not Reportable 11/04/18 05:55 Hypogranular Neuts Not Reportable 11/04/18 05:55 Not Reportable 11/04/18 05:55 Not Reportable 11/04/18 05:55 Not Reportable 11/04/18 05:55 Not Reportable 11/04/18 05:55 Not Reportable 11/04/18 05:55 Not Reportable 11/04/18 05:55 Consistent w auto 11/04/18 05:55 Not Reportable 11/04/18 05:55 Plt Clumps, EDTA Not Reportable 11/04/18 05:55 Not Reportable 11/04/18 05:55 Not Reportable 11/04/18 05:55 Not Reportable 11/04/18 05:55 Plt Morphology Comment Not Reportable 11/04/18 05:55 RBC Morphology Not Reportable 11/04/18 05:55 Dimorphic RBCs Not Reportable 11/04/18 05:55 Few 11/04/18 05:55 1+ 11/04/18 05:55 Not Reportable 11/04/18 05:55 1+ 11/04/18 05:55 Not Reportable 11/04/18 05:55 Not Reportable 11/04/18 05:55 Not Reportable 11/04/18 05:55 Not Reportable 11/04/18 05:55 Not Reportable 11/04/18 05:55 Not Reportable 11/04/18 05:55 Not Reportable 11/04/18 05:55 Not Reportable 11/04/18 05:55 Not Reportable 11/04/18 05:55 Not Reportable 11/04/18 05:55 Not Reportable 11/04/18 05:55 Not Reportable 11/04/18 05:55 Not Reportable 11/04/18 05:55 Not Reportable 11/04/18 05:55 Not Reportable 11/04/18 05:55 Acanthocytes (Spur) Not Reportable 11/04/18 05:55 Rouleaux Not Reportable 11/04/18 05:55 Not Reportable 11/04/18 05:55 Not Reportable 11/04/18 05:55 Not Reportable 11/04/18 05:55 Not Reportable 11/04/18 05:55 Hem Pathologist Commnt No 11/04/18 05:55 PT 16.5 Sec. (12.2-14.9) H 11/06/18 16:11 INR 1.37 (0.87-1.13) H 11/06/18 16:11 APTT 58.1 Sec. (24.2-36.6) H 11/06/18 16:11 Sodium 138 mmol/L (137-145) 11/08/18 18:07 Potassium 4.2 mmol/L (3.6-5.0) 11/09/18 05:10 Chloride 91.3 mmol/L (98-107) L 11/08/18 18:07 Carbon Dioxide 34 mmol/L (22-30) H 11/08/18 18:07 16 mmol/L 11/08/18 18:07 BUN 26 mg/dL (9-20) H 11/08/18 18:07 1.0 mg/dL (0.8-1.5) 11/08/18 18:07 Estimated GFR > 60 ml/min 11/08/18 18:07 26 % 11/08/18 18:07 Glucose 92 mg/dL (75-100) 11/08/18 18:07 POC Glucose 138 (70-105) H 11/09/18 07:17 8.6 % (4-6) H 10/26/18 04:38 Calcium 8.4 mg/dL (8.4-10.2) 11/08/18 18:07 Phosphorus 3.10 mg/dL (2.5-4.5) 10/29/18 05:49 Magnesium 1.70 mg/dL (1.7-2.3) 11/04/18 18:35 1.70 mg/dL (0.1-1.2) H 11/08/18 09:47 AST 16 units/L (5-40) 11/08/18 09:47 ALT 5 units/L (7-56) L 11/08/18 09:47 148 units/L (35-129) H 11/08/18 09:47 0.014 ng/mL (0.00-0.029) 10/24/18 17:58 NT-Pro-B Natriuret Pep 6211 pg/mL (0-900) H 10/24/18 17:58 7.0 g/dL (6.3-8.2) 11/08/18 09:47 3.1 g/dL (3.9-5) L 11/08/18 09:47 0.8 % 11/08/18 09:47 29 units/L (13-60) 10/24/18 17:58 Yellow (Yellow) 10/24/18 22:17 Clear (Clear) 10/24/18 22:17 5.0 (5.0-7.0) 10/24/18 22:17 Ur Specific [place] 1.011 (1.003-1.030) 10/24/18 22:17 <15 mg/dl mg/dL (Negative) 10/24/18 22:17 Neg mg/dL (Negative) 10/24/18 22:17 Neg mg/dL (Negative) 10/24/18 22:17 Sm (Negative) 10/24/18 22:17 Neg (Negative) 10/24/18 22:17 Neg (Negative) 10/24/18 22:17 4.0 mg/dL (<2.0) 10/24/18 22:17 Ur Leukocyte Esterase Neg (Negative) 10/24/18 22:17 1.0 /HPF (0.0-6.0) 10/24/18 22:17 2.0 /HPF (0.0-6.0) 10/24/18 22:17 Few /HPF 10/24/18 22:17 Fluid Type Ascitic 11/07/18 Unknown Fluid Color Red 11/07/18 Unknown Fluid Appearance Cloudy 11/07/18 Unknown Fluid WBC 759 /mm3 11/07/18 Unknown Fluid RBC 33246 /mm3 11/07/18 Unknown Fluid Seg Neutrophils 6.0 % 11/07/18 Unknown Fluid Lymphocytes 48.0 % 11/07/18 Unknown Fluid Reactive Lymphs 0 % 11/07/18 Unknown Fluid Monocytes 46.0 % 11/07/18 Unknown Fluid Eosinophils 0 % 11/07/18 Unknown Fluid Basophils 0 % 11/07/18 Unknown Digoxin 0.6 ng/mL (0.9-2.0) L 11/06/18 08:03 Hepatitis A IgM Ab Non-reactive (NonReactive) 11/06/18 19:49 Hep Bs Antigen Non-reactive (Negative) 11/06/18 19:49 Hep B Core IgM Ab Non-reactive (NonReactive) 11/06/18 19:49 Non-reactive (NonReactive) 11/06/18 19:49 Active Medications - Current Medications Current Medications: Generic Name Dose Route Start Last Admin Trade Name Freq PRN Reason Stop Dose Admin Bumetanide 1 mg 10/31/18 11:15 11/09/18 05:24 Bumex IV 1 mg BID@0600,1800 NORRIS Administration Carvedilol 3.125 mg 10/25/18 22:00 11/08/18 21:29 Coreg PO 3.125 mg BID NORRIS Administration Digoxin 0.125 mg 11/06/18 17:00 11/08/18 17:11 Lanoxin PO 0.125 mg DAILY@1700 NORRIS Administration Docusate Sodium 100 mg 10/25/18 12:00 11/08/18 21:29 Colace PO 100 mg BID NORRIS Administration Insulin Human Lispro 0 unit 10/25/18 11:30 11/09/18 07:50 Humalog SUB-Q Not Given ACHS [facility] Protocol Lisinopril 2.5 mg 11/05/18 10:00 11/08/18 09:38 Zestril PO Not Given QDAY NORRIS Metformin HCl 750 mg 10/26/18 08:00 11/09/18 08:18 Glucophage Xr PO 750 mg QDDIAB NORRIS Administration Methocarbamol 500 mg 10/25/18 18:06 Robaxin PO Q8HR PRN Muscle Spasm Metolazone 2.5 mg 10/28/18 18:30 11/08/18 09:31 Zaroxolyn PO 2.5 mg QDAY NORRIS Administration Midodrine 5 mg 11/08/18 20:00 11/09/18 08:19 Proamatine PO 5 mg TID NORRIS Administration Montelukast Sodium 10 mg 10/25/18 18:00 11/08/18 17:11 Singulair PO 10 mg QPM NORRIS Administration Neomycin/Polymyxin/Bacitracin 1 applic 10/25/18 12:00 11/08/18 21:31 Triple Antibiotic TP Not Given BID NORRIS Pravastatin Sodium 40 mg 10/25/18 22:00 11/08/18 21:29 Pravachol PO 40 mg QHS NORRIS Administration Spironolactone 50 mg 11/07/18 22:00 11/08/18 21:28 Aldactone PO 50 mg BID NORRIS Administration Nutrition/Malnutrition Assess - Dietary Evaluation Nutrition/Malnutrition Findings: Nutrition Notes Start: 10/31/18 17:15 Freq: Status: Active Protocol: Document 10/31/18 17:15 RM (Rec: 10/31/18 17:15 RM [id number]) Nutrition Notes Need for Assessment generated from: LOS Initial or Follow up Brief Note Height 5 ft 10 in Weight 90.5 kg [place] Body Weight (kg) 75.45 BMI 28.6 Subjective/Other Information Screened for LOS. Recorded PO intake 85% X 2 days. Nutrition Intervention Revisit per MD consult or patient Sign Off request:
[2018-11-09] MEDS: ALDACTONE PO SCH ×2 (10:21→21:34)
[2018-11-09] MEDS: COREG PO SCH ×2 (10:21→21:32)
[2018-11-09] MEDS: ZESTRIL PO SCH (10:22)
[2018-11-09] MEDS: TRIPLE ANTIBIOTIC TP SCH ×3 (10:22→21:42)
[2018-11-09] MEDS: COLACE PO SCH ×2 (10:24→21:35)
[2018-11-09] MEDS: ZAROXOLYN PO SCH (10:27)
[2018-11-09 10:31] LABS: BUN/Creatinine Ratio 26; Blood Urea Nitrogen 26 mg/dL (9-20); Calcium 8.5 mg/dL (8.4-10.2); Hemolysis Index 0
--- NOTE | 2018-11-09 12:02 | Progress Note ---
Assessment and Plan DC Zaroxolyn. Reduce Aldactone dose. Increase midodrine to 10 mg tid. If stable on this regimen, may DC in am. - Patient Problems (1) Acute on chronic HFrEF (heart failure with reduced ejection fraction) Current Visit: Yes Status: Acute (2) Cardiac resynchronization therapy defibrillator (MEDIA MARKETING DIRECTOR-D) in place Current Visit: Yes Status: Chronic (3) Ischemic cardiomyopathy Current Visit: Yes Status: Chronic (4) CAD (coronary artery disease) Current Visit: Yes Status: Chronic Qualifiers: Coronary Disease-Associated Artery/Lesion type: crow artery (5) History of coronary artery stent placement Current Visit: Yes Status: Chronic (6) Severe mitral regurgitation Current Visit: Yes Status: Chronic (7) Pulmonary hypertension Current Visit: Yes Status: Chronic (8) Ascites Current Visit: Yes Status: Acute (9) Thrombocytopenia Current Visit: Yes Status: Acute (10) Diabetes Current Visit: Yes Status: Chronic Subjective Date of service: 11/09/18 Principal diagnosis: Acute on chronic HFrEF, Ischemic CMP, MEDIA MARKETING DIRECTOR/ICD, CAD s/p PCI, Severe MR Interval history: He is desperate to go home. However, there have been issues of low BP and meds being held. Had long discussion with pt. Objective Vital Signs Temp Pulse Resp BP BP Pulse Ox 11/09/18 10:22 85 89/64 11/09/18 10:21 85 89/64 11/09/18 10:00 85 11/09/18 07:46 98.5 F 18 93/64 11/09/18 04:49 98.1 F 78 18 87/59 99 11/09/18 00:30 98.3 F 65 18 95/54 94 11/08/18 22:00 92 H 11/08/18 19:20 98.2 F 92 H 18 96/63 95 11/08/18 18:42 98.4 F 85 16 90/60 96 11/08/18 17:11 95 H 90/58 11/08/18 15:34 99 11/08/18 13:16 85 20 96/71 94 - Physical Examination General: No Apparent Distress HEENT: Positive: EOMI, Normocephaly, Mucus Membranes Moist Neck: Positive: neck supple, trachea midline, JVD/HJR Cardiac: Positive: Regular Rate, S1/S2 Lungs: Positive: clear to auscultation Neuro: Positive: Grossly Intact Abdomen: Positive: Soft, Active Bowel Sounds, Distended. Negative: Tender Skin: Positive: Clear. Negative: Rash Musculoskeletal: Normal Range of Motion Extremities: Present: +1 Edema (bilateral leg edema) - Labs and Meds Comprehensive Metabolic Panel 11/08/18 11/09/18 11/09/18 Range/Units 18:07 05:10 09:30 Sodium 138 135 L (137-145) mmol/L Potassium 3.5 L 4.2 4.0 (3.6-5.0) mmol/L Chloride 91.3 L 92.5 L (98-107) mmol/L Carbon Dioxide 34 H 30 (22-30) mmol/L BUN 26 H 26 H (9-20) mg/dL Creatinine 1.0 1.0 (0.8-1.5) mg/dL Glucose 92 174 H (75-100) mg/dL Calcium 8.4 8.5 (8.4-10.2) mg/dL - Imaging and Cardiology EKG: image reviewed (ventricular paced) Echo: report reviewed (03/2017: EF 20%, LV severely dilated, grade 3 diastolic dysfunction, severe MR) Cardiac cath: report reviewed (Successful PCI to LCx and RCA in 2004; successful PCI to D1) Pacemaker: ventricular pacing w/capt
[2018-11-09] MEDS: SINGULAIR PO SCH (17:21)
[2018-11-09] MEDS: LANOXIN PO SCH (17:22)
[2018-11-09] MEDS: BUMEX PO SCH (17:23)
[2018-11-09] MEDS: PRAVACHOL PO SCH (21:40)
[2018-11-10 06:13] LABS: BUN/Creatinine Ratio 28; Blood Urea Nitrogen 28 mg/dL (9-20); Calcium 8.4 mg/dL (8.4-10.2); Hemolysis Index 27
[2018-11-10] MEDS: BUMEX PO SCH (06:13)
[2018-11-10] MEDS: HumaLOG SUB-Q SCH ×3 (09:02→20:01)
[2018-11-10] MEDS: TRIPLE ANTIBIOTIC TP SCH (09:03)
[2018-11-10] MEDS: GLUCOPHAGE XR PO SCH (09:03)
[2018-11-10] MEDS: COLACE PO SCH (09:04)
[2018-11-10] MEDS: PROAMATINE PO SCH ×2 (09:05→13:33)
[2018-11-10] MEDS: ZESTRIL PO SCH (09:11)
[2018-11-10] MEDS: ALDACTONE PO SCH (09:12)
[2018-11-10] MEDS: COREG PO SCH (09:12)
[2018-11-10 12:36] VITALS: BP 98/71
--- NOTE | 2018-11-10 13:41 | Discharge Summary ---
Providers - Providers Date of Admission: 10/24/18 19:35 Date of discharge: 11/10/18 Attending physician: BLAS PINEDA 10/25/18 11:28 Consult to Physician [CONS] Routine Comment: Consulting Provider: MATHEW SINHA Physician Instructions: Reason For Exam: acute on chronic syst CHF/EF 20%/AICD 11/04/18 10:17 Physical Therapy Evaluation and Treat [CONS] Routine Comment: Reason For Exam: weakness 11/06/18 16:46 Consult to Physician [CONS] Routine Comment: Consulting Provider: CALIXTO BRADFORD Physician Instructions: Reason For Exam: Gross ascitis Primary care physician: KAMRYN NAVARRO Hospitalization Condition: Good Disposition: DC/[place]-06 HOME UNDER HOME [facility] Core Measure Documentation - Palliative Care Palliative Care/ Comfort Measures: Not Applicable - Core Measures Any of the following diagnoses?: heart failure - Heart Failure Discharge Requirements LUISA/ARB for LVSD if EF <40%: No Reason for no LUISA/ARB: Hypotension Beta erika at discharge: No Reason for no beta erika on DC: Hypotension Exam - Constitutional Vitals: Temp Pulse Resp BP Pulse Ox 97.3 F L 83 18 98/71 92 11/10/18 12:35 11/10/18 07:55 11/10/18 12:35 11/10/18 12:35 11/10/18 07:55 Plan Diet: low fat, low cholesterol, low salt Additional Instructions: 1.Follow up with PCP in 1 week. 2.Follow up with Dr. Maddi Ta on 11/12/18. 3.Follow up with Dr. Tye Bradford in 1 week Follow up with: KAMRYN NAVARRO JR, MD [Primary Care Provider] - 7 Days CAL TA MD [Staff Physician] - 7 Days (Follow up in our [facility] with Dr. Ta on 11/12/2018 @ 8:45AM. ) Prescriptions: Spironolactone [Aldactone] 25 mg PO BID #30 tablet Bumetanide [Bumex 1 mg tab] 1 mg PO BID #60 tablet Digoxin [Lanoxin] 0.125 mg PO DAILY@1700 #30 tablet Midodrine [Proamatine] 10 mg PO TID 30 Days tablet
--- NOTE | 2018-11-10 13:43 | Progress Note ---
Assessment and Plan Currently stable cardiac status. Pt may discharge home from cardiology standpoint on current cardiac regimen. Can consider resuming home coreg and/or lisinopril as OP if BPs permit. Pt wishes to enroll in cardiac rehabilitation. Will plan to provide referral as OP. Additionally, pt may benefit from OP evaluation by [facility]. Follow up in our [place] office with Dr. Foster on 11/12/2018 @ 8:45AM. The patient has been seen in conjunction with Dr. Martinez who agrees with assessment and plan of care. - Patient Problems (1) Acute on chronic HFrEF (heart failure with reduced ejection fraction) Current Visit: Yes Status: Acute (2) Cardiac resynchronization therapy defibrillator (CRACKER OFF-D) in place Current Visit: Yes Status: Chronic (3) Ischemic cardiomyopathy Current Visit: Yes Status: Chronic (4) CAD (coronary artery disease) Current Visit: Yes Status: Chronic Qualifiers: Coronary Disease-Associated Artery/Lesion type: [place] artery (5) History of coronary artery stent placement Current Visit: Yes Status: Chronic (6) Severe mitral regurgitation Current Visit: Yes Status: Chronic (7) Pulmonary hypertension Current Visit: Yes Status: Chronic (8) Ascites Current Visit: Yes Status: Acute (9) Thrombocytopenia Current Visit: Yes Status: Acute (10) Diabetes Current Visit: Yes Status: Chronic Subjective Date of service: 11/10/18 Principal diagnosis: Acute on chronic HFrEF, Ischemic CMP, CRACKER OFF/ICD, CAD s/p PCI, Severe MR Interval history: pt resting in bed, states he is feeling well. Objective Last Vital Signs Temp 97.3 F L 11/10/18 12:35 Pulse 83 11/10/18 07:55 Resp 18 11/10/18 12:35 BP 98/71 11/10/18 12:35 Pulse Ox 92 11/10/18 07:55 - Physical Examination General: No Apparent Distress HEENT: Positive: EOMI, Normocephaly, Mucus Membranes Moist Neck: Positive: neck supple, trachea midline, JVD/HJR Cardiac: Positive: Reg Rate and Rhythm, S1/S2 Lungs: Positive: Decreased Breath Sounds Neuro: Positive: Grossly Intact Abdomen: Positive: Soft, Active Bowel Sounds. Negative: Tender Skin: Positive: Clear. Negative: Rash Musculoskeletal: Normal Range of Motion Extremities: Present: edema (trace BLE) - Labs and Meds Comprehensive Metabolic Panel 11/10/18 Range/Units 04:39 Sodium 138 (137-145) mmol/L Potassium 3.9 (3.6-5.0) mmol/L Chloride 95.3 L (98-107) mmol/L Carbon Dioxide 28 (22-30) mmol/L BUN 28 H (9-20) mg/dL Creatinine 1.0 (0.8-1.5) mg/dL Glucose 130 H (75-100) mg/dL Calcium 8.4 (8.4-10.2) mg/dL - Imaging and Cardiology EKG: image reviewed (ventricular paced) Echo: report reviewed (03/2017: EF 20%, LV severely dilated, grade 3 diastolic dysfunction, severe MR) Cardiac cath: report reviewed (Successful PCI to LCx and RCA in 2004; successful PCI to D1) - Telemetry EKG Rhythm: Paced Pacemaker: ventricular pacing w/capt
== END 2018-11-10 18:10 | disposition home health service (06) | DRG 291 ==
LOC: ED 16:54 → 4A 19:35
PROVIDERS: ADMIT Internal Medicine; ATTEND Internal Medicine
PROC: 0W9G3ZZ Drainage of Peritoneal Cavity, Percutaneous Approach (ICD-10-PCS; principal; 2018-11-07)
DX: I11.0 Hypertensive heart disease with heart failure (principal); J18.1 Lobar pneumonia, unspecified organism; J96.01 Acute respiratory failure with hypoxia; E44.0 Moderate protein-calorie malnutrition; R18.8 Other ascites; I50.23 Acute on chronic systolic (congestive) heart failure; I25.5 Ischemic cardiomyopathy; I25.10 Atherosclerotic heart disease of native coronary artery without angina pectoris; E11.9 Type 2 diabetes mellitus without complications; I27.20 Pulmonary hypertension, unspecified; J45.909 Unspecified asthma, uncomplicated; E78.5 Hyperlipidemia, unspecified; I95.9 Hypotension, unspecified; D69.6 Thrombocytopenia, unspecified; Z95.810 Presence of automatic (implantable) cardiac defibrillator; Z79.899 Other long term (current) drug therapy; Z95.5 Presence of coronary angioplasty implant and graft; I25.2 Old myocardial infarction; Z82.49 Family history of ischemic heart disease and other diseases of the circulatory system; Z68.24 Body mass index [BMI] 24.0-24.9, adult
CPT/HCPCS: 36415; 49083; 71046; 76705; 80048; 80053; 80074; 80162; 81001; 82040; 82150; 82947; 82962; 83036; 83605; 83690; 83735; 83880; 84100; 84132; 84160; 84484; 85007; 85025; 85610; 85730; 87086; 89051; 93005; 93010; 93306; 94760; 96374; G0378; A6250; A9270-GY; C1729; J1250; J1650; J1815; J1940; J1956; J3475